=== PATIENT | male | born 1945 | race Caucasian/White ===

== ENCOUNTER → 2020-01-24 10:03 | Outpatient (BNVA) | payer MEDICARE, SELFPAY | PROVIDERS: PCP Internal Medicine Medical Oncology; Referring Provider Internal Medicine Medical Oncology; Visit Provider Internal Medicine | DX: I48.0 Paroxysmal atrial fibrillation (principal); Z51.81 Encounter for therapeutic drug level monitoring; Z79.01 Long term (current) use of anticoagulants | CPT/HCPCS: 85610; 99211 ==

== ENCOUNTER 2020-01-30 10:27 | Outpatient (REF) | payer MEDICARE, SELFPAY ==
[2020-01-30 11:36] LABS: MANUAL DIFF FLAG NO
[2020-01-30 11:41] LABS: Basophils Percent Auto 0.3 % (0-2); Eosinophils Absolute Auto 0.1 X10*3/uL (0.0-0.4); Eosinophils Percent Auto 2.2 % (0-4); Hematocrit 35.5 % (42-52); Hemoglobin 11.7 g/dl (14.0-18.0); Lymphocytes Absolute Auto 1.2 X10*3/uL (1.2-4.9); Lymphocytes Percent Auto 36.9 % (20-40); Mean Corpuscular Hemoglobin 34.4 pg (27.0-33.0); Mean Corpuscular Volume 104.4 fL (80-98); Mean Platelet Volume 10.5 fL (9.4-12.4); Monocytes Absolute Auto 0.3 X10*3/uL (0.1-1.2); Monocytes Percent Auto 10.6 % (2-11); Neutrophils Absolute Auto 1.6 X10*3/uL (2.0-8.3); Red Cell Distribution Width 15.7 % (11.0-16.0); White Blood Count 3.1 X10*3/uL (4.8-10.8)
[2020-01-30 11:45] LABS: Platelet Count 55 X10*3/uL (160-400)
[2020-01-30 11:57] LABS: Alanine Aminotransferase 12 U/L (0-40); Albumin Level 3.7 g/dL (3.5-5.0); Alkaline Phosphatase 54 U/L (39-117); Anion Gap 10 (12-20); Aspartate Amino Transferase 17 U/L (5-37); Bilirubin Total 0.5 mg/dL (0.0-1.0); Blood Urea Nitrogen 8 mg/dL (9-16); Calcium 7.5 mg/dL (8.4-10.2); Carbon Dioxide 27 mmol/L (22-29); Chloride 109 mmol/L (96-108); Estimated Glomerular Filt Rate > 60; Glucose Random 124 mg/dL (60-115); Potassium 3.7 mmol/l (3.3-5.1); Sodium 142 mmol/L (135-145); Total Protein 6.6 g/dL (6.5-8.0)
[2020-01-30 12:20] LABS: Vitamin D 25-OH Total 35.6 ng/mL (>30)
[2020-01-31 16:51] LABS: IgA 414 mg/dL (70-320); IgG 1448 mg/dL (600-1540); IgM 47 mg/dL (50-300)
== END 2020-01-30 10:28 | disposition home or self-care (01) ==
LOC: HO.LAB 10:27
PROVIDERS: PCP Internal Medicine Medical Oncology; Visit Provider Internal Medicine Medical Oncology
DX: C90.00 Multiple myeloma not having achieved remission (principal)
CPT/HCPCS: 36415; 80053; 82306; 82784; 85025; 86334

== ENCOUNTER 2020-02-21 09:53 | Outpatient (REF) | payer MEDICARE, SELFPAY ==
[2020-02-21 11:19] LABS: Basophils Percent Auto 1.4 % (0-2); Eosinophils Absolute Auto 0.1 X10*3/uL (0.0-0.4); Eosinophils Percent Auto 3.2 % (0-4); Hemoglobin 12.1 g/dl (14.0-18.0); Lymphocytes Percent Auto 45.2 % (20-40); MANUAL DIFF FLAG SCAN; Mean Corpuscular HGB Conc 32.7 g/dl (31.0-36.0); Mean Corpuscular Hemoglobin 33.9 pg (27.0-33.0); Mean Corpuscular Volume 103.6 fL (80-98); Mean Platelet Volume 10.5 fL (9.4-12.4); Monocytes Absolute Auto 0.3 X10*3/uL (0.1-1.2); Monocytes Percent Auto 15.2 % (2-11); Neutrophils Absolute Auto 0.8 X10*3/uL (2.0-8.3); Red Blood Count 3.57 X10*6/uL (4.60-5.80); Red Cell Distribution Width 15.4 % (11.0-16.0); SCAN SMEAR FLAG 1
[2020-02-21 11:33] LABS: Alanine Aminotransferase 13 U/L (0-40); Albumin Level 3.6 g/dL (3.5-5.0); Alkaline Phosphatase 57 U/L (39-117); Anion Gap 11 (12-20); Aspartate Amino Transferase 16 U/L (5-37); Bilirubin Total 0.5 mg/dL (0.0-1.0); Blood Urea Nitrogen 9 mg/dL (9-16); Calcium 8.1 mg/dL (8.4-10.2); Carbon Dioxide 25 mmol/L (22-29); Chloride 108 mmol/L (96-108); Estimated Glomerular Filt Rate > 60; Glucose Random 108 mg/dL (60-115); Potassium 4.1 mmol/l (3.3-5.1); Sodium 140 mmol/L (135-145); Total Protein 6.7 g/dL (6.5-8.0)
[2020-02-21 11:48] LABS: Platelet Count 85 X10*3/uL (160-400); White Blood Count 2.2 X10*3/uL (4.8-10.8)
[2020-02-21 12:54] LABS: SLIDE REVIEW VERIFIED
[2020-02-24 19:11] LABS: IgA 412 mg/dL (70-320); IgG 1492 mg/dL (600-1540); IgM 44 mg/dL (50-300)
[2020-02-24 21:21] LABS: Prot Elec - Albumin 3.4 g/dL (3.8-4.8); Prot Elec - Alpha1 0.3 g/dL (0.2-0.3); Prot Elec - Alpha2 0.6 g/dL (0.5-0.9); Prot Elec - Beta 1 0.4 g/dL (0.4-0.6); Prot Elec - Beta 2 0.4 g/dL (0.2-0.5); Prot Elec - Gamma 1.5 g/dL (0.8-1.7); Prot Elec - Total Protein 6.6 g/dL (6.1-8.1)
== END 2020-02-21 09:54 | disposition home or self-care (01) ==
LOC: HO.LAB 09:53
PROVIDERS: PCP Internal Medicine Medical Oncology; Visit Provider Internal Medicine Medical Oncology
DX: C90.00 Multiple myeloma not having achieved remission (principal); D69.6 Thrombocytopenia, unspecified
CPT/HCPCS: 36415; 80053; 82784; 84155; 84165; 85025; 85610; 86334; 99211

== ENCOUNTER → 2020-03-20 10:02 | Outpatient (BNVA) | payer MEDICARE, SELFPAY | PROVIDERS: PCP Internal Medicine Medical Oncology; Visit Provider Internal Medicine | DX: I48.0 Paroxysmal atrial fibrillation (principal); Z51.81 Encounter for therapeutic drug level monitoring; Z79.01 Long term (current) use of anticoagulants | CPT/HCPCS: 85610; 99211 ==

== ENCOUNTER 2020-04-11 10:23 | Outpatient (REF) | payer MEDICARE, SELFPAY ==
[2020-04-11 11:08] LABS: Basophils Percent Auto 0.8 % (0-2); Eosinophils Absolute Auto 0.1 X10*3/uL (0.0-0.4); Eosinophils Percent Auto 2.8 % (0-4); Hematocrit 38.8 % (42-52); Hemoglobin 12.7 g/dl (14.0-18.0); Imm Gran Abs Auto 0.01 X10*3/uL (0.00-0.03); Imm Gran Pct Auto 0.4 % (0.0-0.4); Lymphocytes Absolute Auto 1.3 X10*3/uL (1.2-4.9); Lymphocytes Percent Auto 51.6 % (20-40); MANUAL DIFF FLAG SCAN; Mean Corpuscular HGB Conc 32.7 g/dl (31.0-36.0); Mean Corpuscular Hemoglobin 34.1 pg (27.0-33.0); Mean Corpuscular Volume 104.3 fL (80-98); Mean Platelet Volume 11.2 fL (9.4-12.4); Monocytes Absolute Auto 0.3 X10*3/uL (0.1-1.2); Monocytes Percent Auto 12.8 % (2-11); Neutrophils Absolute Auto 0.8 X10*3/uL (2.0-8.3); Neutrophils Percent Auto 31.6 % (45-73); Red Blood Count 3.72 X10*6/uL (4.60-5.80); Red Cell Distribution Width 15.7 % (11.0-16.0); SCAN SMEAR FLAG 1
[2020-04-11 11:17] LABS: Alanine Aminotransferase 13 U/L (0-40); Albumin Level 3.7 g/dL (3.5-5.0); Alkaline Phosphatase 53 U/L (39-117); Anion Gap 10 (12-20); Aspartate Amino Transferase 15 U/L (5-37); Bilirubin Total 0.5 mg/dL (0.0-1.0); Blood Urea Nitrogen 11 mg/dL (9-16); Carbon Dioxide 29 mmol/L (22-29); Chloride 106 mmol/L (96-108); Estimated Glomerular Filt Rate > 60; Glucose Random 139 mg/dL (60-115); Potassium 3.9 mmol/l (3.3-5.1); Sodium 141 mmol/L (135-145); Total Protein 6.9 g/dL (6.5-8.0)
[2020-04-11 11:20] LABS: Platelet Count 69 X10*3/uL (160-400); White Blood Count 2.5 X10*3/uL (4.8-10.8)
[2020-04-11 11:29] LABS: SLIDE REVIEW VERIFIED
[2020-04-13 14:53] LABS: IgA 442 mg/dL (70-320); IgG 1481 mg/dL (600-1540); IgM 44 mg/dL (50-300)
== END 2020-04-11 10:24 | disposition home or self-care (01) ==
LOC: HO.LAB 10:23
PROVIDERS: PCP Internal Medicine Medical Oncology; Visit Provider Internal Medicine Medical Oncology
DX: C90.00 Multiple myeloma not having achieved remission (principal)
CPT/HCPCS: 36415; 80053; 82784; 85025; 86334

== ENCOUNTER → 2020-04-16 15:08 | Outpatient (BNVA) | payer MEDICARE, SELFPAY | PROVIDERS: PCP Internal Medicine Medical Oncology; Visit Provider Urology | DX: Z13.89 Encounter for screening for other disorder (principal) | CPT/HCPCS: Q3014 ==

== ENCOUNTER 2020-04-17 09:53 | Outpatient (REF) | payer MEDICARE, SELFPAY ==
--- NOTE | 2020-04-17 10:31 | XR_ITS ---
EXAMINATION: XR THORACIC SPINE XR LUMBAR SPINE CLINICAL INFORMATION: Acute back pain. COMPARISON: None TECHNIQUE: Thoracic spine 3 views. Lumbar spine 3 views. FINDINGS: Lumbar spine: There is normal lumbar lordosis. The vertebral heights, alignment and disc heights are normal. There is cement augmentation in old L4 and L2 vertebral fractures. There is mild ventral spondylosis L1-L2 disc level. No lytic process seen. No acute fracture. Thoracic spine: Normal thoracic kyphosis. The vertebral heights, alignment and disc heights are normal. There is mild ventral spondylosis. No visible acute fracture, dislocation or lytic process seen. The paravertebral soft tissues are normal. XR/XR lumbar spine 2-3V IMPRESSION: 1. No acute fracture. Old healed L2 and L4 fracture with cement augmentation. Moderate ventral spondylosis L1-L2 disc level. 2. There is normal thoracic kyphosis. No visible acute fracture or dislocation seen.
--- NOTE | 2020-04-17 10:31 | XR_ITS ---
EXAMINATION: XR THORACIC SPINE XR LUMBAR SPINE CLINICAL INFORMATION: Acute back pain. COMPARISON: None TECHNIQUE: Thoracic spine 3 views. Lumbar spine 3 views. FINDINGS: Lumbar spine: There is normal lumbar lordosis. The vertebral heights, alignment and disc heights are normal. There is cement augmentation in old L4 and L2 vertebral fractures. There is mild ventral spondylosis L1-L2 disc level. No lytic process seen. No acute fracture. Thoracic spine: Normal thoracic kyphosis. The vertebral heights, alignment and disc heights are normal. There is mild ventral spondylosis. No visible acute fracture, dislocation or lytic process seen. The paravertebral soft tissues are normal. XR/XR thoracic spine 3V IMPRESSION: 1. No acute fracture. Old healed L2 and L4 fracture with cement augmentation. Moderate ventral spondylosis L1-L2 disc level. 2. There is normal thoracic kyphosis. No visible acute fracture or dislocation seen.
== END 2020-04-17 09:54 | disposition home or self-care (01) ==
LOC: HO.XRAY 09:53
PROVIDERS: PCP Internal Medicine Medical Oncology; Referring Provider Internal Medicine Medical Oncology; Visit Provider Internal Medicine
DX: C90.00 Multiple myeloma not having achieved remission (principal); D69.6 Thrombocytopenia, unspecified; M54.9 Dorsalgia, unspecified; I48.0 Paroxysmal atrial fibrillation; Z51.81 Encounter for therapeutic drug level monitoring; Z79.01 Long term (current) use of anticoagulants
CPT/HCPCS: 72072; 72100; 85610; 99211

== ENCOUNTER 2020-05-07 10:23 | Outpatient (REF) | payer MEDICARE, SELFPAY ==
[2020-05-07 11:26] LABS: MANUAL DIFF FLAG NO
[2020-05-07 11:32] LABS: Basophils Percent Auto 1.1 % (0-2); Eosinophils Percent Auto 1.1 % (0-4); Hematocrit 39.8 % (42-52); Hemoglobin 13.4 g/dl (14.0-18.0); Imm Gran Abs Auto 0.01 X10*3/uL (0.00-0.03); Imm Gran Pct Auto 0.4 % (0.0-0.4); Lymphocytes Absolute Auto 1.1 X10*3/uL (1.2-4.9); Lymphocytes Percent Auto 41.4 % (20-40); Mean Corpuscular HGB Conc 33.7 g/dl (31.0-36.0); Mean Corpuscular Hemoglobin 34.4 pg (27.0-33.0); Mean Corpuscular Volume 102.3 fL (80-98); Mean Platelet Volume 9.6 fL (9.4-12.4); Monocytes Absolute Auto 0.4 X10*3/uL (0.1-1.2); Monocytes Percent Auto 13.6 % (2-11); Neutrophils Absolute Auto 1.2 X10*3/uL (2.0-8.3); Neutrophils Percent Auto 42.4 % (45-73); Platelet Count 106 X10*3/uL (160-400); Red Blood Count 3.89 X10*6/uL (4.60-5.80); Red Cell Distribution Width 14.9 % (11.0-16.0); White Blood Count 2.7 X10*3/uL (4.8-10.8)
[2020-05-07 12:27] LABS: Alanine Aminotransferase 11 U/L (0-40); Albumin Level 3.9 g/dL (3.5-5.0); Alkaline Phosphatase 58 U/L (39-117); Anion Gap 10 (12-20); Aspartate Amino Transferase 16 U/L (5-37); Bilirubin Total 0.7 mg/dL (0.0-1.0); Blood Urea Nitrogen 13 mg/dL (9-16); Calcium 8.2 mg/dL (8.4-10.2); Carbon Dioxide 27 mmol/L (22-29); Chloride 107 mmol/L (96-108); Estimated Glomerular Filt Rate > 60; Glucose Random 159 mg/dL (60-115); Potassium 4.2 mmol/l (3.3-5.1); Sodium 140 mmol/L (135-145); Total Protein 7.2 g/dL (6.5-8.0)
[2020-05-08 14:57] LABS: IgA 455 mg/dL (70-320); IgG 1578 mg/dL (600-1540); IgM 40 mg/dL (50-300)
[2020-05-08 18:53] LABS: Kappa Light Chain, Free Serum 125.6 mg/L (3.3-19.4); Kappa/Lambda Lt Ch Free Ratio 5.61 (0.26-1.65); Lambda Light Chain, Free Serum 22.4 mg/L (5.7-26.3)
[2020-05-09 10:38] LABS: Prot Elec - Albumin 3.7 g/dL (3.8-4.8); Prot Elec - Alpha1 0.3 g/dL (0.2-0.3); Prot Elec - Alpha2 0.6 g/dL (0.5-0.9); Prot Elec - Beta 1 0.4 g/dL (0.4-0.6); Prot Elec - Beta 2 0.4 g/dL (0.2-0.5); Prot Elec - Gamma 1.6 g/dL (0.8-1.7)
[2020-05-12 16:22] LABS: Kappa, Serum 482 mg/dL (176-443); Kappa/Lambda Ratio, Serum 3.17 (1.29-2.55); Lambda, Serum 152 mg/dL (91-240)
== END 2020-05-07 10:24 | disposition home or self-care (01) ==
LOC: HO.LAB 10:23
PROVIDERS: PCP Internal Medicine Medical Oncology; Visit Provider Internal Medicine Medical Oncology
DX: C90.00 Multiple myeloma not having achieved remission (principal); D69.6 Thrombocytopenia, unspecified
CPT/HCPCS: 36415; 80053; 82784; 83520; 83883; 84155; 84165; 85025; 85610; 86334; 99211

== ENCOUNTER → 2020-05-12 11:25 | Outpatient (BNVA) | payer MEDICARE, SELFPAY | PROVIDERS: PCP Internal Medicine Medical Oncology; Visit Provider Internal Medicine | DX: I48.0 Paroxysmal atrial fibrillation (principal); Z51.81 Encounter for therapeutic drug level monitoring; Z79.01 Long term (current) use of anticoagulants | CPT/HCPCS: 85610; 99211 ==

== ENCOUNTER → 2020-05-22 10:31 | Outpatient (BNVA) | payer MEDICARE, SELFPAY | PROVIDERS: PCP Internal Medicine Medical Oncology; Visit Provider Internal Medicine | DX: I48.0 Paroxysmal atrial fibrillation (principal); Z51.81 Encounter for therapeutic drug level monitoring; Z79.01 Long term (current) use of anticoagulants | CPT/HCPCS: 85610; 99211 ==

== ENCOUNTER 2020-06-05 10:22 | Outpatient (REF) | payer MEDICARE, SELFPAY ==
[2020-06-05 11:40] LABS: MANUAL DIFF FLAG NO
[2020-06-05 11:52] LABS: Basophils Percent Auto 1.1 % (0-2); Eosinophils Absolute Auto 0.1 X10*3/uL (0.0-0.4); Eosinophils Percent Auto 2.5 % (0-4); Hematocrit 41.3 % (42-52); Hemoglobin 13.7 g/dl (14.0-18.0); Imm Gran Abs Auto 0.01 X10*3/uL (0.00-0.03); Imm Gran Pct Auto 0.4 % (0.0-0.4); Lymphocytes Absolute Auto 1.3 X10*3/uL (1.2-4.9); Lymphocytes Percent Auto 45.4 % (20-40); Mean Corpuscular HGB Conc 33.2 g/dl (31.0-36.0); Mean Corpuscular Hemoglobin 34.5 pg (27.0-33.0); Mean Platelet Volume 11.9 fL (9.4-12.4); Monocytes Absolute Auto 0.4 X10*3/uL (0.1-1.2); Monocytes Percent Auto 12.5 % (2-11); Neutrophils Absolute Auto 1.1 X10*3/uL (2.0-8.3); Neutrophils Percent Auto 38.1 % (45-73); Platelet Count 110 X10*3/uL (160-400); Red Blood Count 3.97 X10*6/uL (4.60-5.80); Red Cell Distribution Width 14.7 % (11.0-16.0); White Blood Count 2.8 X10*3/uL (4.8-10.8)
[2020-06-05 12:09] LABS: Estimated Average Glucose 105 mg/dL; Hemoglobin A1c % 5.3 %
[2020-06-05 12:59] LABS: Alanine Aminotransferase 13 U/L (0-40); Albumin Level 3.7 g/dL (3.5-5.0); Alkaline Phosphatase 58 U/L (39-117); Anion Gap 13 (12-20); Aspartate Amino Transferase 15 U/L (5-37); Bilirubin Total 0.9 mg/dL (0.0-1.0); Blood Urea Nitrogen 11 mg/dL (9-16); Calcium 8.2 mg/dL (8.4-10.2); Carbon Dioxide 24 mmol/L (22-29); Chloride 108 mmol/L (96-108); Estimated Glomerular Filt Rate > 60; Glucose Fasting 125 mg/dL (60-99); Potassium 4.1 mmol/L (3.3-5.1); Sodium 141 mmol/L (135-145)
[2020-06-09 15:17] LABS: IgA 461 mg/dL (70-320); IgG 1592 mg/dL (600-1540); IgM 47 mg/dL (50-300)
== END 2020-06-05 10:23 | disposition home or self-care (01) ==
LOC: HO.LAB 10:22
PROVIDERS: PCP Internal Medicine Medical Oncology; Visit Provider Internal Medicine Medical Oncology
DX: I48.0 Paroxysmal atrial fibrillation (principal); C90.00 Multiple myeloma not having achieved remission; I10 Essential (primary) hypertension; E11.9 Type 2 diabetes mellitus without complications; Z51.81 Encounter for therapeutic drug level monitoring; Z79.01 Long term (current) use of anticoagulants
CPT/HCPCS: 36415; 80053; 82784; 83036; 85025; 85610; 86334; 99211

== ENCOUNTER → 2020-06-19 10:57 | Outpatient (BNVA) | payer MEDICARE, SELFPAY | PROVIDERS: PCP Internal Medicine Medical Oncology; Visit Provider Internal Medicine | DX: I48.0 Paroxysmal atrial fibrillation (principal); Z51.81 Encounter for therapeutic drug level monitoring; Z79.01 Long term (current) use of anticoagulants | CPT/HCPCS: 85610; 99211 ==

== ENCOUNTER → 2020-06-30 10:39 | Outpatient (BNVA) | payer MEDICARE, SELFPAY | PROVIDERS: PCP Internal Medicine Medical Oncology; Visit Provider Internal Medicine | DX: I48.0 Paroxysmal atrial fibrillation (principal); Z51.81 Encounter for therapeutic drug level monitoring; Z79.01 Long term (current) use of anticoagulants | CPT/HCPCS: 85610; 99211 ==

== ENCOUNTER 2020-07-07 10:13 | Outpatient (REF) | payer MEDICARE, SELFPAY ==
[2020-07-07 11:01] LABS: MANUAL DIFF FLAG NO
[2020-07-07 11:04] LABS: Eosinophils Absolute Auto 0.1 X10*3/uL (0.0-0.4); Eosinophils Percent Auto 2.1 % (0-4); Hematocrit 39.2 % (42-52); Hemoglobin 12.7 g/dl (14.0-18.0); Imm Gran Abs Auto 0.01 X10*3/uL (0.00-0.03); Imm Gran Pct Auto 0.3 % (0.0-0.4); Lymphocytes Absolute Auto 1.2 X10*3/uL (1.2-4.9); Lymphocytes Percent Auto 41.7 % (20-40); Mean Corpuscular HGB Conc 32.4 g/dl (31.0-36.0); Mean Corpuscular Hemoglobin 33.8 pg (27.0-33.0); Mean Corpuscular Volume 104.3 fL (80-98); Monocytes Absolute Auto 0.3 X10*3/uL (0.1-1.2); Monocytes Percent Auto 11.1 % (2-11); Neutrophils Absolute Auto 1.3 X10*3/uL (2.0-8.3); Neutrophils Percent Auto 43.8 % (45-73); Platelet Count 123 X10*3/uL (160-400); Red Blood Count 3.76 X10*6/uL (4.60-5.80); Red Cell Distribution Width 14.5 % (11.0-16.0); White Blood Count 2.9 X10*3/uL (4.8-10.8)
[2020-07-07 12:24] LABS: Alanine Aminotransferase 14 U/L (0-40); Albumin Level 3.8 g/dL (3.5-5.0); Alkaline Phosphatase 89 U/L (39-117); Anion Gap 12 (12-20); Aspartate Amino Transferase 17 U/L (5-37); Bilirubin Total 0.5 mg/dL (0.0-1.0); Blood Urea Nitrogen 11 mg/dL (9-16); Carbon Dioxide 24 mmol/L (22-29); Chloride 109 mmol/L (96-108); Estimated Glomerular Filt Rate > 60; Glucose Random 140 mg/dL (60-115); Potassium 4.1 mmol/L (3.3-5.1); Sodium 141 mmol/L (135-145); Total Protein 7.1 g/dL (6.5-8.0)
[2020-07-08 15:02] LABS: IgA 431 mg/dL (70-320); IgG 1532 mg/dL (600-1540); IgM 44 mg/dL (50-300); Prot Elec - Albumin 3.4 g/dL (3.8-4.8); Prot Elec - Alpha1 0.3 g/dL (0.2-0.3); Prot Elec - Alpha2 0.7 g/dL (0.5-0.9); Prot Elec - Beta 1 0.4 g/dL (0.4-0.6); Prot Elec - Beta 2 0.4 g/dL (0.2-0.5); Prot Elec - Gamma 1.5 g/dL (0.8-1.7); Prot Elec - Total Protein 6.6 g/dL (6.1-8.1)
[2020-07-09 15:27] LABS: Kappa, Serum 486 mg/dL (176-443); Kappa/Lambda Ratio, Serum 2.88 (1.29-2.55); Lambda, Serum 169 mg/dL (91-240)
== END 2020-07-07 10:14 | disposition home or self-care (01) ==
LOC: HO.LAB 10:13
PROVIDERS: PCP Internal Medicine Medical Oncology; Visit Provider Internal Medicine Medical Oncology
DX: C90.00 Multiple myeloma not having achieved remission (principal)
CPT/HCPCS: 36415; 80053; 82784; 83883; 84155; 84165; 85025; 86334

== ENCOUNTER → 2020-07-21 10:30 | Outpatient (BNVA) | payer MEDICARE, SELFPAY | PROVIDERS: PCP Internal Medicine Medical Oncology; Visit Provider Internal Medicine | DX: I48.0 Paroxysmal atrial fibrillation (principal); Z79.01 Long term (current) use of anticoagulants; Z51.81 Encounter for therapeutic drug level monitoring | CPT/HCPCS: 85610; 99211 ==

== ENCOUNTER 2020-08-07 10:13 | Outpatient (REF) | payer MEDICARE, SELFPAY ==
[2020-08-07 11:13] LABS: MANUAL DIFF FLAG NO
[2020-08-07 11:38] LABS: Basophils Percent Auto 1.1 % (0-2); Eosinophils Absolute Auto 0.1 X10*3/uL (0.0-0.4); Eosinophils Percent Auto 2.5 % (0-4); Hemoglobin 12.4 g/dl (14.0-18.0); Imm Gran Abs Auto 0.02 X10*3/uL (0.00-0.03); Imm Gran Pct Auto 0.7 % (0.0-0.4); Lymphocytes Absolute Auto 1.3 X10*3/uL (1.2-4.9); Lymphocytes Percent Auto 46.3 % (20-40); Mean Corpuscular HGB Conc 32.6 g/dl (31.0-36.0); Mean Corpuscular Hemoglobin 33.3 pg (27.0-33.0); Mean Corpuscular Volume 102.2 fL (80-98); Mean Platelet Volume 11.2 fL (9.4-12.4); Monocytes Absolute Auto 0.4 X10*3/uL (0.1-1.2); Monocytes Percent Auto 13.9 % (2-11); Neutrophils Percent Auto 35.5 % (45-73); Red Blood Count 3.72 X10*6/uL (4.60-5.80); Red Cell Distribution Width 15.3 % (11.0-16.0); White Blood Count 2.8 X10*3/uL (4.8-10.8)
[2020-08-07 11:41] LABS: Alanine Aminotransferase 16 U/L (0-40); Albumin Level 3.6 g/dL (3.5-5.0); Alkaline Phosphatase 60 U/L (39-117); Anion Gap 11 (12-20); Aspartate Amino Transferase 19 U/L (5-37); Bilirubin Total 0.6 mg/dL (0.0-1.0); Blood Urea Nitrogen 11 mg/dL (9-16); Calcium 7.9 mg/dL (8.4-10.2); Carbon Dioxide 26 mmol/L (22-29); Chloride 108 mmol/L (96-108); Estimated Glomerular Filt Rate > 60; Glucose Random 150 mg/dL (60-115); Sodium 141 mmol/L (135-145); Total Protein 6.7 g/dL (6.5-8.0)
[2020-08-07 11:48] LABS: Platelet Count 85 X10*3/uL (160-400)
== END 2020-08-07 10:14 | disposition home or self-care (01) ==
LOC: HO.LAB 10:13
PROVIDERS: PCP Internal Medicine Medical Oncology; Visit Provider Internal Medicine Medical Oncology
DX: C90.00 Multiple myeloma not having achieved remission (principal); D69.6 Thrombocytopenia, unspecified
CPT/HCPCS: 36415; 80053; 85025

== ENCOUNTER → 2020-08-18 10:34 | Outpatient (BNVA) | payer MEDICARE, SELFPAY | PROVIDERS: PCP Internal Medicine Medical Oncology; Visit Provider Internal Medicine | DX: I48.0 Paroxysmal atrial fibrillation (principal); Z51.81 Encounter for therapeutic drug level monitoring; Z79.01 Long term (current) use of anticoagulants | CPT/HCPCS: 85610; 99211 ==

== ENCOUNTER 2020-09-04 10:16 | Outpatient (REF) | payer MEDICARE, SELFPAY ==
[2020-09-04 11:32] LABS: MANUAL DIFF FLAG NO
[2020-09-04 11:49] LABS: Basophils Percent Auto 0.3 % (0-2); Eosinophils Absolute Auto 0.1 X10*3/uL (0.0-0.4); Eosinophils Percent Auto 2.6 % (0-4); Hematocrit 38.9 % (42-52); Hemoglobin 12.6 g/dl (14.0-18.0); Imm Gran Abs Auto 0.01 X10*3/uL (0.00-0.03); Imm Gran Pct Auto 0.3 % (0.0-0.4); Lymphocytes Absolute Auto 1.2 X10*3/uL (1.2-4.9); Lymphocytes Percent Auto 31.6 % (20-40); Mean Corpuscular HGB Conc 32.4 g/dl (31.0-36.0); Mean Corpuscular Hemoglobin 33.1 pg (27.0-33.0); Mean Corpuscular Volume 102.1 fL (80-98); Mean Platelet Volume 10.4 fL (9.4-12.4); Monocytes Absolute Auto 0.4 X10*3/uL (0.1-1.2); Monocytes Percent Auto 9.4 % (2-11); Neutrophils Absolute Auto 2.2 X10*3/uL (2.0-8.3); Neutrophils Percent Auto 55.8 % (45-73); Platelet Count 109 X10*3/uL (160-400); Red Blood Count 3.81 X10*6/uL (4.60-5.80); Red Cell Distribution Width 15.3 % (11.0-16.0); White Blood Count 3.9 X10*3/uL (4.8-10.8)
[2020-09-04 12:19] LABS: Alanine Aminotransferase 13 U/L (0-40); Albumin Level 3.7 g/dL (3.5-5.0); Alkaline Phosphatase 56 U/L (39-117); Anion Gap 10 (12-20); Aspartate Amino Transferase 15 U/L (5-37); Bilirubin Total 0.4 mg/dL (0.0-1.0); Blood Urea Nitrogen 10 mg/dL (9-16); Calcium 8.4 mg/dL (8.4-10.2); Carbon Dioxide 26 mmol/L (22-29); Chloride 110 mmol/L (96-108); Estimated Glomerular Filt Rate > 60; Glucose Random 116 mg/dL (60-115); Potassium 4.5 mmol/L (3.3-5.1); Sodium 141 mmol/L (135-145); Total Protein 6.7 g/dL (6.5-8.0)
[2020-09-08 23:11] LABS: Prot Elec - Albumin 3.6 g/dL (3.8-4.8); Prot Elec - Alpha1 0.3 g/dL (0.2-0.3); Prot Elec - Alpha2 0.6 g/dL (0.5-0.9); Prot Elec - Beta 1 0.4 g/dL (0.4-0.6); Prot Elec - Beta 2 0.4 g/dL (0.2-0.5); Prot Elec - Gamma 1.5 g/dL (0.8-1.7); Prot Elec - Total Protein 6.7 g/dL (6.1-8.1)
[2020-09-17 17:36] LABS: Kappa, Serum 461 mg/dL (176-443); Kappa/Lambda Ratio, Serum 2.78 (1.29-2.55); Lambda, Serum 166 mg/dL (91-240)
== END 2020-09-04 10:17 | disposition home or self-care (01) ==
LOC: HO.LAB 10:16
PROVIDERS: PCP Internal Medicine Medical Oncology; Visit Provider Internal Medicine Medical Oncology
DX: C90.00 Multiple myeloma not having achieved remission (principal); D69.6 Thrombocytopenia, unspecified
CPT/HCPCS: 36415; 80053; 83883; 84155; 84165; 85025

== ENCOUNTER 2020-09-15 10:31 | Outpatient (REF) | payer MEDICARE, SELFPAY ==
--- NOTE | ~2020-09-15 | XR_ITS ---
EXAMINATION: THORACIC SPINE, LUMBAR SPINE CLINICAL INFORMATION: Multiple myeloma not having achieved remission, acute back pain. COMPARISON: 04/17/2020 TECHNIQUE: 4 views thoracic spine, 3 views lumbar spine. FINDINGS: Thoracic Spine: Again seen is a mild scoliosis convex to the right. 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 There is mild anterior wedging of a few thoracic vertebral bodies associated with kyphosis. No gross bony destructive lesions are seen. The paraspinal soft tissues are unremarkable. Lumbar Spine: Again seen are kyphoplasty changes with cement in the L2 and L4. [id number] degenerative changes are noted throughout the lumbar spine. No new compression fractures are seen. No bony destructive lesions seen. XR/XR lumbar spine 2-3V IMPRESSION: 1. Degenerative changes present in the thoracic spine with kyphosis and scoliosis with no new destructive lesions or fractures. 2. Stable kyphoplasty changes at L2 and L4 with no new lesions.
--- NOTE | ~2020-09-15 | XR_ITS ---
EXAMINATION: THORACIC SPINE, LUMBAR SPINE CLINICAL INFORMATION: Multiple myeloma not having achieved remission, acute back pain. COMPARISON: 04/17/2020 TECHNIQUE: 4 views thoracic spine, 3 views lumbar spine. FINDINGS: Thoracic Spine: Again seen is a mild scoliosis convex to the right. 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 There is mild anterior wedging of a few thoracic vertebral bodies associated with kyphosis. No gross bony destructive lesions are seen. The paraspinal soft tissues are unremarkable. Lumbar Spine: Again seen are kyphoplasty changes with cement in the L2 and L4. [id number] degenerative changes are noted throughout the lumbar spine. No new compression fractures are seen. No bony destructive lesions seen. XR/XR thoracic spine 3V IMPRESSION: 1. Degenerative changes present in the thoracic spine with kyphosis and scoliosis with no new destructive lesions or fractures. 2. Stable kyphoplasty changes at L2 and L4 with no new lesions.
== END 2020-09-15 10:32 | disposition home or self-care (01) ==
LOC: HO.XRAY 10:31
PROVIDERS: Absent Provider Internal Medicine Medical Oncology; PCP Internal Medicine Medical Oncology; Visit Provider Internal Medicine
DX: C90.00 Multiple myeloma not having achieved remission (principal); M54.9 Dorsalgia, unspecified; I48.0 Paroxysmal atrial fibrillation; Z51.81 Encounter for therapeutic drug level monitoring; Z79.01 Long term (current) use of anticoagulants
CPT/HCPCS: 72072; 72100; 85610; 99211

== ENCOUNTER 2020-10-01 13:52 | Outpatient (REF) | payer MEDICARE, SELFPAY ==
--- NOTE | ~2020-10-01 | MM_ITS ---
EXAMINATION: BONE DENSITOMETRY CLINICAL INDICATION: Encounter for screening for osteoporosis. Acute back pain, unspecified location. Prior vertebroplasty/vertebral augmentation L2 and L4. COMPARISON: None (current study represents initial baseline exam). TECHNIQUE: Using a [employer] SACV DXA System (software version: 13.1) manufactured by [employer], dual-energy x-ray absorptiometry was performed of the lumbar spine and left hip. The images are of good technical quality. Summary results are attached. FINDINGS: AP SPINE L1-L3 (excluding L2): The data of L1-L4 has been changed to exclude the L2 and L4 vertebral bodies, because vertebral augmentation at these levels may cause overestimation of lumbar spine density. There are degenerative changes in the lumbar spine which may cause overestimation of the lumbar bone mineral density. BMD 1.222 g/cm2, Z-score 0.4, T-score 0.2, normal. LEFT FEMUR, NECK: BMD 0.630 g/cm2, Z-score -2.2, T-score -3.4, osteoporosis. LEFT FEMUR, TOTAL: BMD 0.760 g/cm2, Z-score -1.6, T-score -2.4, osteopenia. IDENTIFIED RISK FACTORS: Height loss. HISTORY OF FRACTURE: Spine. MEDICATIONS: Calcium or multivitamin. MM/XR DEXA axial skeleton IMPRESSION: 1. DIAGNOSIS: Severe osteoporosis based on the lowest T-score value of -3.4 in the femoral neck and prior history vertebral compression fractures applying World Health Organization criteria. 2. 10-YEAR FRACTURE RISK PREDICTION, FRAX: Major osteoporotic fracture (clinical spine, forearm, hip or shoulder) 14.3%. Hip fracture 7.2%. 3. Treatment Recommendations: NOF guidelines recommend consideration for treatment in postmenopausal women and men age 50 and older presenting with the following: -A hip or vertebral (clinical or morphometric) fracture. -T-score less than or equal to -2.5 at the femoral neck or spine after appropriate evaluation to exclude secondary causes. -Low bone mass at the hip or spine and a 10-year fracture probability by FRAX of greater than or equal to 3% for hip fracture or greater than or equal to 20% for major osteoporotic fracture based on the [place] adapted WHO algorithm. 4. Other Recommendations: All treatment decisions require clinical judgment and consideration of individual patient factors, including patient preferences, comorbidities, previous drug use, risk factors not captured in the FRAX model (e.g. frailty, falls, vitamin D deficiency, increased bone turnover, interval significant decline in bone density) and possible under or overestimation of fracture risk by FRAX. Additional medical evaluation for secondary cause of low bone mineral density may be appropriate. FUTURE SCAN RECOMMENDATION: People with diagnosed cases of osteoporosis or at high risk for fracture should have regular bone mineral density tests. For patients eligible for Medicare, routine testing is allowed once every 2 years. The testing frequency can be increased to one year for patients who have rapidly progressing disease, those who are receiving or discontinuing medical therapy to restore bone mass, or have additional risk factors.
[2020-10-01 15:11] LABS: MANUAL DIFF FLAG NO
[2020-10-01 15:13] LABS: Basophils Percent Auto 0.9 % (0-2); Eosinophils Absolute Auto 0.1 X10*3/uL (0.0-0.4); Eosinophils Percent Auto 3.5 % (0-4); Hematocrit 39.7 % (42-52); Hemoglobin 13.2 g/dl (14.0-18.0); Imm Gran Abs Auto 0.02 X10*3/uL (0.00-0.03); Imm Gran Pct Auto 0.6 % (0.0-0.4); Lymphocytes Absolute Auto 1.4 X10*3/uL (1.2-4.9); Lymphocytes Percent Auto 39.4 % (20-40); Mean Corpuscular HGB Conc 33.2 g/dl (31.0-36.0); Mean Corpuscular Hemoglobin 33.6 pg (27.0-33.0); Mean Platelet Volume 10.7 fL (9.4-12.4); Monocytes Absolute Auto 0.4 X10*3/uL (0.1-1.2); Monocytes Percent Auto 11.3 % (2-11); Neutrophils Absolute Auto 1.5 X10*3/uL (2.0-8.3); Neutrophils Percent Auto 44.3 % (45-73); Platelet Count 103 X10*3/uL (160-400); Red Blood Count 3.93 X10*6/uL (4.60-5.80); Red Cell Distribution Width 15.2 % (11.0-16.0); White Blood Count 3.5 X10*3/uL (4.8-10.8)
[2020-10-01 15:25] LABS: Estimated Average Glucose 114 mg/dL; Hemoglobin A1c % 5.6 %
[2020-10-01 15:32] LABS: Creatinine Urine 165.95 mg/dL; Microalbum/Creatinine Ratio Ur 12.6 ug/mg cr
[2020-10-01 15:39] LABS: Alanine Aminotransferase 20 U/L (0-40); Albumin Level 3.7 g/dL (3.5-5.0); Alkaline Phosphatase 68 U/L (39-117); Anion Gap 11 (12-20); Aspartate Amino Transferase 30 U/L (5-37); Bilirubin Total 0.5 mg/dL (0.0-1.0); Blood Urea Nitrogen 10 mg/dL (9-16); Calcium 8.2 mg/dL (8.4-10.2); Carbon Dioxide 25 mmol/L (22-29); Chloride 108 mmol/L (96-108); Estimated Glomerular Filt Rate > 60; Glucose Random 102 mg/dL (60-115); Potassium 4.4 mmol/L (3.3-5.1); Sodium 140 mmol/L (135-145); Total Protein 6.9 g/dL (6.5-8.0)
[2020-10-02 21:57] LABS: Prot Elec - Albumin 3.5 g/dL (3.8-4.8); Prot Elec - Alpha1 0.3 g/dL (0.2-0.3); Prot Elec - Alpha2 0.7 g/dL (0.5-0.9); Prot Elec - Beta 1 0.4 g/dL (0.4-0.6); Prot Elec - Beta 2 0.4 g/dL (0.2-0.5); Prot Elec - Gamma 1.4 g/dL (0.8-1.7); Prot Elec - Total Protein 6.7 g/dL (6.1-8.1)
[2020-10-15 15:46] LABS: Kappa, Serum 466 mg/dL (176-443); Kappa/Lambda Ratio, Serum 3.01 (1.29-2.55); Lambda, Serum 155 mg/dL (91-240)
== END 2020-10-01 13:53 | disposition home or self-care (01) ==
LOC: HO.MAMMO 13:52
PROVIDERS: PCP Internal Medicine Medical Oncology; Visit Provider Internal Medicine Medical Oncology
DX: Z13.820 Encounter for screening for osteoporosis (principal); M81.0 Age-related osteoporosis without current pathological fracture; C90.00 Multiple myeloma not having achieved remission; M54.9 Dorsalgia, unspecified; I10 Essential (primary) hypertension; E11.9 Type 2 diabetes mellitus without complications; Z79.899 Other long term (current) drug therapy
CPT/HCPCS: 36415; 77080; 80053; 82043; 83036; 83883; 84155; 84165; 85025

== ENCOUNTER → 2020-10-13 10:31 | Outpatient (BNVA) | payer MEDICARE, SELFPAY | PROVIDERS: PCP Internal Medicine Medical Oncology; Visit Provider Internal Medicine | DX: I48.0 Paroxysmal atrial fibrillation (principal); Z51.81 Encounter for therapeutic drug level monitoring; Z79.01 Long term (current) use of anticoagulants | CPT/HCPCS: 85610; 99211 ==

== ENCOUNTER → 2020-10-20 10:46 | Outpatient (BNVA) | payer MEDICARE, SELFPAY | PROVIDERS: PCP Internal Medicine Medical Oncology; Visit Provider Internal Medicine | DX: I48.0 Paroxysmal atrial fibrillation (principal); Z51.81 Encounter for therapeutic drug level monitoring; Z79.01 Long term (current) use of anticoagulants | CPT/HCPCS: 85610; 99211 ==

== ENCOUNTER 2020-10-28 11:38 | Outpatient (REF) | payer MEDICARE, SELFPAY ==
[2020-10-28 12:08] LABS: MANUAL DIFF FLAG NO
[2020-10-28 12:13] LABS: Eosinophils Absolute Auto 0.1 X10*3/uL (0.0-0.4); Eosinophils Percent Auto 3.2 % (0-4); Hematocrit 38.9 % (42-52); Hemoglobin 12.7 g/dl (14.0-18.0); Imm Gran Abs Auto 0.02 X10*3/uL (0.00-0.03); Imm Gran Pct Auto 0.6 % (0.0-0.4); Lymphocytes Absolute Auto 1.2 X10*3/uL (1.2-4.9); Lymphocytes Percent Auto 35.7 % (20-40); Mean Corpuscular HGB Conc 32.6 g/dl (31.0-36.0); Mean Corpuscular Hemoglobin 33.1 pg (27.0-33.0); Mean Corpuscular Volume 101.3 fL (80-98); Mean Platelet Volume 10.3 fL (9.4-12.4); Monocytes Absolute Auto 0.3 X10*3/uL (0.1-1.2); Monocytes Percent Auto 9.6 % (2-11); Neutrophils Absolute Auto 1.8 X10*3/uL (2.0-8.3); Neutrophils Percent Auto 50.9 % (45-73); Platelet Count 106 X10*3/uL (160-400); Red Blood Count 3.84 X10*6/uL (4.60-5.80); Red Cell Distribution Width 15.6 % (11.0-16.0); White Blood Count 3.5 X10*3/uL (4.8-10.8)
[2020-10-28 12:41] LABS: Alanine Aminotransferase 11 U/L (0-40); Albumin Level 3.7 g/dL (3.5-5.0); Alkaline Phosphatase 58 U/L (39-117); Anion Gap 10 (12-20); Aspartate Amino Transferase 17 U/L (5-37); Bilirubin Total 0.6 mg/dL (0.0-1.0); Blood Urea Nitrogen 9 mg/dL (9-16); Carbon Dioxide 26 mmol/L (22-29); Chloride 108 mmol/L (96-108); Estimated Glomerular Filt Rate > 60; Glucose Random 157 mg/dL (60-115); Sodium 140 mmol/L (135-145); Total Protein 6.7 g/dL (6.5-8.0)
[2020-10-29 17:17] LABS: Kappa/Lambda Lt Ch Free Ratio 49.92 (0.26-1.65); Lambda Light Chain, Free Serum 22.7 mg/L (5.7-26.3)
[2020-11-02 08:02] LABS: IgA 358 mg/dL (70-320); IgG 1460 mg/dL (600-1540); IgM 41 mg/dL (50-300)
[2020-11-02 20:52] LABS: Prot Elec - Albumin 3.7 g/dL (3.8-4.8); Prot Elec - Alpha1 0.3 g/dL (0.2-0.3); Prot Elec - Alpha2 0.7 g/dL (0.5-0.9); Prot Elec - Beta 1 0.5 g/dL (0.4-0.6); Prot Elec - Beta 2 0.3 g/dL (0.2-0.5); Prot Elec - Gamma 1.3 g/dL (0.8-1.7); Prot Elec - Total Protein 6.8 g/dL (6.1-8.1)
[2020-11-03 13:56] LABS: Kappa, Serum 441 mg/dL (176-443); Kappa/Lambda Ratio, Serum 3.27 (1.29-2.55); Lambda, Serum 135 mg/dL (91-240)
== END 2020-10-28 11:39 | disposition home or self-care (01) ==
LOC: HO.LAB 11:38
PROVIDERS: PCP Internal Medicine Medical Oncology; Visit Provider Internal Medicine Medical Oncology
DX: C90.00 Multiple myeloma not having achieved remission (principal); D69.6 Thrombocytopenia, unspecified; D70.2 Other drug-induced agranulocytosis
CPT/HCPCS: 36415; 80053; 82784; 83520; 83883; 84165; 85025; 86334

== ENCOUNTER 2020-11-02 18:11 | Observation (INO) | payer MEDICARE, SELFPAY ==
--- NOTE | ~2020-11-02 | XR_ITS ---
EXAMINATION: XR SHOULDER, RIGHT CLINICAL INFORMATION: Fall and trauma COMPARISON: None TECHNIQUE: 3 plain film views of the right shoulder. FINDINGS: Humeral head is well-seated in the glenoid fossa. I do not appreciate any superimposed acute fracture or dislocation. Mild degenerative changes in the acromioclavicular joint. Visualized right ribs unremarkable XR/XR shoulder RT min 2V IMPRESSION: Mild degenerative changes but no acute bony abnormality.
--- NOTE | ~2020-11-02 | CT_ITS ---
EXAMINATION: CT HEAD WITHOUT CONTRAST CLINICAL INFORMATION: Syncope and over anticoagulation. History of multiple myeloma COMPARISON: 05/07/2018 TECHNIQUE: Contiguous axial imaging was performed from the skull base to vertex without intravenous administration of contrast. This CT examination was performed using dose optimization techniques as appropriate, variously including the following: *Automated exposure control *Adjustment of mA and/or kV according to patient size (this includes techniques or standardized protocols for targeted exams where dose is matched to indication/reason for exam; i.e. extremities or head) *Use of iterative reconstruction technique DLP: 887 mGy-cm FINDINGS: No evidence of acute intracranial hemorrhage or extra-axial fluid collection. No evidence of mass lesion, mass effect or midline shift. No acute territorial infarction. The ventricles are symmetric in configuration and basal cisterns are patent. Periventricular white matter hypodensities, a nonspecific finding but most commonly on the basis of chronic small vessel ischemic disease, similar to the prior study. Proportional ventricular prominence to the sulcal size in keeping with global volume loss. The calvarium is intact. Multiple lytic lesions throughout the calvarium, similar to the prior study in keeping with the patient's diagnosis of multiple myeloma. Limited views of the paranasal sinuses are unremarkable. Mastoid air cells are well aerated and middle ear cavities are clear. Bilateral lens extractions. CT/CT head/brain wo con IMPRESSION: 1. No evidence of acute intracranial abnormality. 2. 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 3. Multiple lucent lesions throughout the calvarium as seen on the prior study consistent with known multiple myeloma.
--- NOTE | 2020-11-02 18:37 | ED_ITS ---
HPI - Fall General Chief Complaint: Fall Stated Complaint: FALL +LOC Time Seen by Provider: 11/02/20 18:36 Source: patient Mode of arrival: EMS Limitations: no limitations History of Present Illness HPI Narrative: Patient remembers falling down backwards down the three steps landing on the grass. According to patient passed out after getting him into a chair, he was also incontinent stool, and then vomited. Patient complaining of shoulder pain. This same thing happened to him a few years ago after falling. MD complaint: fall Onset (ago): minute(s) Fall from: down stairs (#) Loss of consciousness: yes Length of LOC: second(s) Prolonged down time: no Context: tripped/slipped Location of injury - extremities: right: shoulder Severity: mild Related Data Home Medications Medication Instructions Recorded Confirmed bromfenac 0.09 % eye drops drp OPHTHALMIC (EYE) 04/16/20 06/19/20 donepezil 5 mg tablet 5 mg PO DAILY 04/16/20 06/19/20 metformin 500 mg tablet 500 mg PO BID 04/16/20 06/19/20 omeprazole 20 mg capsule,delayed 20 mg PO DAILY 04/16/20 06/19/20 release primidone 50 mg tablet 100 mg PO DAILY 04/16/20 06/19/20 tamsulosin 0.4 mg capsule 0.4 mg PO DAILY 04/16/20 06/19/20 zoledronic acid 4 mg/5 mL mg IV 04/16/20 06/19/20 intravenous solution acetaminophen 500 mg tablet 500 mg PO Q6H PRN 05/07/20 06/19/20 diltiazem HCl 180 mg capsule,24 180 mg PO QAM 05/07/20 06/19/20 hr,extended release latanoprost 0.005 % eye drops 1 drp OPHTHALMIC (EYE) BEDTIME 05/07/20 06/19/20 lenalidomide 25 mg capsule mg PO 05/07/20 06/19/20 Previous Rx's Medication Instructions Recorded warfarin 5 mg tablet 5 mg PO DAILY #90 tab 01/24/20 Allergies Allergy/AdvReac Type Severity Reaction Status Date / Time No Known Allergies Allergy Verified 10/13/20 10:41 [No Known Allergies*] Review of Systems Neurologic: Denies Sensory deficit (Neuro) [facility] Past Medical History Medical History (Updated 11/02/20 @ 19:37 by Anjum Moody MD) Afib BPH (benign prostatic hyperplasia) Diabetes Diabetes mellitus DVT (deep venous thrombosis) Glaucoma HTN (hypertension) Urinary retention due to benign prostatic hyperplasia Surgical History (Updated 11/02/20 @ 18:47 by Alba Garcia RN) H/O cataract removal with insertion of prosthetic lens Social History Social History Alcohol intake: current Alcohol intake frequency: holidays/special occasions only Patient Tobacco Use Status: Former Tobacco user Use of substances other than those prescribed or required for medical reasons: No Advance Directives: No Advance Directives Information Provided: No Physical Exam Vital Signs: Vital Signs: Last Vital Signs Temp 98.1 F 11/02/20 18:41 Pulse 58 11/02/20 18:41 Resp 18 11/02/20 18:41 BP 142/61 H 11/02/20 18:41 Pulse Ox 98 11/02/20 18:41 Body Mass Index 30.5 Const: Other: elderly male Nutritional Appearance: average body habitus Orientation/consciousness: oriented to person and patient oriented x3 Limitations: no limitations HENMT: Head: Yes normal to inspection Ears: external ears normal General nose exam: Normal external nose present Mouth: Normal oral and palatal mucosa present and oropharynx normal Throat: Yes posterior oropharynx normal Eyes: General: appearance normal, both eyes and all related structures Neck: Other: supple Neck: Yes normal visual inspection Chest: Chest palpation & inspection: normal inspection of the chest Resp: Auscultation: clear to auscultation bilaterally Cardio: Jugular venous distension: no JVD Rate: regular rate Rhythm: regular rhythm Heart sounds: S1 normal heart sound present and S2 normal heart sound present GI: Inspection: Yes normal to inspection Palpation (GI): Soft to palpation, nontender and No hepatosplenomegaly present Auscultation: normal bowel sounds : General: Yes no CVA tenderness Back/Spine/Pelvis: Back: no CVA tenderness Skin: General skin exam: no rashes or lesions noted Neuro: General: oriented to person and patient oriented x3 Cranial nerves: Yes CN's II-XII intact bilaterally Motor exam (neuro): 5/5 motor strength present throughout Sensory Exam: No Sensory deficit (Neuro) Extrem: Other: right shoulder pain, no swelling or deformity Psych: Appearance: grossly normal Course Reevaluation(s) Reevaluation #1: patient with syncope with fecal incontinence followed by vomiting. At this time eKG, labs, troponin and shoulder xray all normal. Will admit for syncope Time: 19:37 Reevaluation #2: Dr. Pink would like a head CT Time: 19:48 MDM - Fall Lab Data Result diagrams: 11/02/20 18:53 11/02/20 18:53 Labs: Lab Results 11/02/20 11/02/20 11/02/20 Range/Units 18:53 18:53 18:53 WBC 4.0 L (4.8-10.8) X10*3/uL RBC 3.58 L (4.60-5.80) X10*6/uL Hgb 12.1 L (14.0-18.0) g/dl Hct 36.0 L (42-52) % MCV 100.6 H (80-98) fL MCH 33.8 H (27.0-33.0) pg MCHC 33.6 (31.0-36.0) g/dl RDW 15.3 (11.0-16.0) % Plt Count 77 L D (160-400) X10*3/uL MPV 10.1 (9.4-12.4) fL Immature Gran % (Auto) 0.5 H (0.0-0.4) % Neut % (Auto) 50.9 (45-73) % Lymph % (Auto) 31.3 (20-40) % [place] % (Auto) 14.5 H (2-11) % Eos % (Auto) 2.5 (0-4) % Baso % (Auto) 0.3 (0-2) % Lymph # (Auto) 1.3 (1.2-4.9) X10*3/uL [place] # (Auto) 0.6 (0.1-1.2) X10*3/uL Eos # (Auto) 0.1 (0.0-0.4) X10*3/uL Baso # (Auto) 0.0 (0.0-0.2) X10*3/uL Abs Immat Gran (auto) 0.02 (0.00-0.03) X10*3/uL Absolute Neuts (auto) 2.0 (2.0-8.3) X10*3/uL Absolute Nucleated RBC 0.000 (0.0-0.012) X10*3/uL Nucleated RBC % (auto) 0.0 (0.0-0.2) /100WBC PT (9.9-13.0) SEC INR (0.9-1.1) Sodium 141 (135-145) mmol/L Potassium 3.6 (3.3-5.1) mmol/L Chloride 109 H (96-108) mmol/L Carbon Dioxide 23 (22-29) mmol/L Anion Gap 13 (12-20) BUN 7 L (9-16) mg/dL Creatinine 1.11 (0.5-1.4) mg/dL Estim Creat Clear Calc 61.0 Estimated GFR > 60 Random Glucose 164 H (60-115) mg/dL Calcium 7.7 L (8.4-10.2) mg/dL Troponin I High Sens 8.8 (<3.5-35.0) ng/L 11/02/20 Range/Units 18:53 WBC (4.8-10.8) X10*3/uL RBC (4.60-5.80) X10*6/uL Hgb (14.0-18.0) g/dl Hct (42-52) % MCV (80-98) fL MCH (27.0-33.0) pg MCHC (31.0-36.0) g/dl RDW (11.0-16.0) % Plt Count (160-400) X10*3/uL MPV (9.4-12.4) fL Immature Gran % (Auto) (0.0-0.4) % Neut % (Auto) (45-73) % Lymph % (Auto) (20-40) % [place] % (Auto) (2-11) % Eos % (Auto) (0-4) % Baso % (Auto) (0-2) % Lymph # (Auto) (1.2-4.9) X10*3/uL [place] # (Auto) (0.1-1.2) X10*3/uL Eos # (Auto) (0.0-0.4) X10*3/uL Baso # (Auto) (0.0-0.2) X10*3/uL Abs Immat Gran (auto) (0.00-0.03) X10*3/uL Absolute Neuts (auto) (2.0-8.3) X10*3/uL Absolute Nucleated RBC (0.0-0.012) X10*3/uL Nucleated RBC % (auto) (0.0-0.2) /100WBC PT 41.6 H (9.9-13.0) SEC INR 3.6 H (0.9-1.1) Sodium (135-145) mmol/L Potassium (3.3-5.1) mmol/L Chloride (96-108) mmol/L Carbon Dioxide (22-29) mmol/L Anion Gap (12-20) BUN (9-16) mg/dL Creatinine (0.5-1.4) mg/dL Estim Creat Clear Calc Estimated GFR Random Glucose (60-115) mg/dL Calcium (8.4-10.2) mg/dL Troponin I High Sens (<3.5-35.0) ng/L Imaging Data shoulder: Radiologist's impression: IMPRESSION: Mild degenerative changes but no acute bony abnormality. ECG Data Attestation: I personally reviewed and interpreted this ECG as follows: Interpretation: normal sinus rate of 60, no st or twave changes Discharge Plan Discharge Clinical Impression: Syncope Qualifiers: Syncope type: unspecified Qualified Code(s): R55 - Syncope and collapse Patient Disposition: Admitted As Inpatient
[2020-11-02 18:41] VITALS: BP 130/84; BP 142/61; PULSE 58; PULSE 80; RESP 18; TEMP 36.7; O2SAT 98; BMI 30.5
--- NOTE | 2020-11-02 18:42 | ECG_ITS ---
Test Reason : FALL Blood Pressure : / mmHG Vent. Rate : 056 BPM Atrial Rate : 056 BPM P-R Int : 174 ms QRS Dur : 106 ms QT Int : 478 ms P-R-T Axes : 023 -16 046 degrees QTc Int : 461 ms Sinus bradycardia Moderate voltage criteria for LVH, may be normal variant Cannot rule out Septal infarct , age undetermined Abnormal ECG When compared with ECG of 07-MAY-2018 12:37, Minimal criteria for Septal infarct are now Present Referred By: Anjum Moody Electronically Signed By:SILVA OROPEZA
--- NOTE | 2020-11-02 18:55 | PC.NURSE ---
patient a&ox3-squaxin, at bedside, vss, ekg obtained, labs obtained, xray obtained, will continue to monitor.
[2020-11-02 19:00] LABS: Basophils Percent Auto 0.3 % (0-2); Eosinophils Absolute Auto 0.1 X10*3/uL (0.0-0.4); Eosinophils Percent Auto 2.5 % (0-4); Hemoglobin 12.1 g/dl (14.0-18.0); Imm Gran Abs Auto 0.02 X10*3/uL (0.00-0.03); Imm Gran Pct Auto 0.5 % (0.0-0.4); Lymphocytes Absolute Auto 1.3 X10*3/uL (1.2-4.9); Lymphocytes Percent Auto 31.3 % (20-40); MANUAL DIFF FLAG NO; Mean Corpuscular HGB Conc 33.6 g/dl (31.0-36.0); Mean Corpuscular Hemoglobin 33.8 pg (27.0-33.0); Mean Corpuscular Volume 100.6 fL (80-98); Mean Platelet Volume 10.1 fL (9.4-12.4); Monocytes Absolute Auto 0.6 X10*3/uL (0.1-1.2); Monocytes Percent Auto 14.5 % (2-11); Neutrophils Percent Auto 50.9 % (45-73); Red Blood Count 3.58 X10*6/uL (4.60-5.80); Red Cell Distribution Width 15.3 % (11.0-16.0)
[2020-11-02 19:01] LABS: Platelet Count 77 X10*3/uL (160-400)
[2020-11-02 19:07] LABS: INTERNATIONAL NORM RATIO 3.6 (0.9-1.1); Prothrombin Time 41.6 SEC (9.9-13.0)
[2020-11-02 19:26] LABS: Troponin-I High Sensitivity 8.8 ng/L (<3.5-35.0)
[2020-11-02 19:32] LABS: Anion Gap 13 (12-20); Blood Urea Nitrogen 7 mg/dL (9-16); Calcium 7.7 mg/dL (8.4-10.2); Carbon Dioxide 23 mmol/L (22-29); Chloride 109 mmol/L (96-108); Estimated Glomerular Filt Rate > 60; Glucose Random 164 mg/dL (60-115); Potassium 3.6 mmol/L (3.3-5.1); Sodium 141 mmol/L (135-145)
[2020-11-02 20:39] LABS: COVID-19 Test Negative (Negative); IDNOW Serial# 9DD0AD1C
[2020-11-02 21:02] VITALS: BP 145/59; PULSE 57; RESP 18; TEMP 36.8; O2SAT 100
--- NOTE | 2020-11-02 21:04 | PC.NURSE ---
patient a&ox3, surveillance system monitor sinus lauri, vss, pt c/o mild rt shoulder discomfort- pt states it feels like he was punched in the shoulder, call mc within reach, awaiting inpt bed, will continue to monitor.
--- NOTE | 2020-11-02 21:14 | PHA.MEDREC ---
Pharmacy Consult ? Medication Reconciliation Pharmacy has completed the medication reconciliation. Verified medications with patient's over the phone. There are no remarkable issues for provider's attention. Mahsa Shoemaker, LeilaniD
--- NOTE | 2020-11-02 21:52 | P.HPHOSP_ITS ---
History of Present Illness Date of Service: 11/02/20 Chief Complaint: Syncope This is a 75-year-old male with past medical history of AFib on Coumadin, BPH, diabetes, DVT, HTN, multiple myeloma, who presents to the hospital with complaints of dizziness. Patient currently being worked up for Parkinson's due to his frequent falls. He reports that he was walking off his porch steps when he lost his balance and fell. Patient denies having any loss of consciousness at the time of the fall, no dizziness, no shortness of breath and no chest pain. His and his neighbor caught him, they sat him down, but shortly after he lost consciousness for few seconds witnessed by his and his neighbor. His at bedside reports that the patient was unconscious for few seconds, when he came about he was not confused but had an episode of vomiting that resolved and no recurrence happened. He himself remembers the episode does not remember having any prodromal symptoms but reports that when he came about he felt like he had to move his bowels very badly and therefore had a fecal accident as his did not want him to move. Reports that he was working in the [employer] all day and did not have enough to drink. He denies having any headache, no blurry vision, no chest pain, no palpitations, no abdominal pain, no diarrhea or constipation, no urinary symptoms, and no lower extremity edema. Denies any weakness numbness or tingling. Patient hemodynamically stable with no significant abnormal vitals Labs are significant for is chronically low, hemoglobin of 12.1 which is around his baseline, platelets of 77 which is lower than his usual although chronically low as well, PT of 41, INR of 3.6, BUN of 7, creatinine of 1.1 which is around his baseline, COVID-19 negative, EKG shows sinus bradycardia with a heart rate of 56, no ST T-wave changes suggestive of ACS Head CT shows no evidence of acute intracranial abnormality, chronic small- vessel skin disease, multiple lucent lesions throughout the calvarium is seen on the prior study consistent with known multiple myeloma. Past medical history as below and confirmed with patient Review of Systems Review of Systems: Yes all other systems are reviewed and are negative [facility] Medical History (Updated 11/03/20 @ 05:54 by Jhonatan Pink MD) Afib BPH (benign prostatic hyperplasia) Diabetes Diabetes mellitus DVT (deep venous thrombosis) Glaucoma HTN (hypertension) Multiple myeloma Urinary retention due to benign prostatic hyperplasia Surgical History H/O cataract removal with insertion of prosthetic lens Social History Alcohol intake: current Alcohol intake frequency: holidays/special occasions only Patient Tobacco Use Status: Former Tobacco user Use of substances other than those prescribed or required for medical reasons: No Advance Directives: No Advance Directives Information Provided: No Meds Allergies Allergy/AdvReac Type Severity Reaction Status Date / Time No Known Allergies Allergy Verified 10/13/20 10:41 [No Known Allergies*] Active Medications: Current Medications Generic Name Dose Route Start Last Admin Trade Name Freq PRN Reason Stop Dose Admin Acetaminophen 650 mg 11/02/20 21:12 Acetaminophen 325 Mg Tablet PO Q6H PRN Pain, Mild (Pain Scale 1-3) Docusate Sodium 100 mg 11/02/20 21:12 Docusate Sodium 100 Mg Capsule PO DAILY PRN Constipation Pharmacy Consult 1 each 11/02/20 19:46 Consult Rx Perform Med Rec MISCELLANE ONCE PRN Consult order Sodium Chloride 3 ml 11/03/20 00:00 0.9 % Sodium Chloride Flush 3 Ml Syringe [facility] [place] Home Medications Medication Instructions Recorded Confirmed Last Taken Type metformin 500 mg tablet 500 mg PO BID 04/16/20 11/02/20 11/02/20 History omeprazole 20 mg capsule,delayed 20 mg PO DAILY 04/16/20 11/02/20 11/02/20 History release primidone 50 mg tablet 100 mg PO DAILY 04/16/20 11/02/20 11/02/20 History tamsulosin 0.4 mg capsule 0.4 mg PO BEDTIME 04/16/20 11/02/20 11/01/20 History zoledronic acid 4 mg/5 mL 4 mg IV Q2M 04/16/20 11/02/20 Unknown History intravenous solution diltiazem HCl 180 mg capsule,24 180 mg PO QAM 05/07/20 11/02/20 11/02/20 History hr,extended release latanoprost 0.005 % eye drops 1 drp OPHTHALMIC-RIGHT BEDTIME 05/07/20 11/02/20 11/01/20 History lenalidomide 25 mg capsule 25 mg PO DIRECTED 05/07/20 11/02/20 11/02/20 History acetaminophen 650 mg PO BEDTIME 11/02/20 11/02/20 11/01/20 History brimonidine 1 drp OPHTHALMIC-LEFT BID 11/02/20 11/02/20 11/02/20 History donepezil 1 tab PO DAILY 11/02/20 11/02/20 11/02/20 History metoprolol succinate 12.5 mg PO DAILY 11/02/20 11/02/20 11/02/20 History warfarin 5 mg PO MO 11/02/20 11/02/20 11/02/20 History warfarin 7.5 mg PO SUTUWETHFRSA 11/02/20 11/02/20 11/02/20 History Physical Exam Vital Signs and Narrative: Vital Signs: Last Vital Signs Temp 98.2 F 11/02/20 21:02 Pulse 57 11/02/20 21:02 Resp 18 11/02/20 21:02 BP 145/59 H 11/02/20 21:02 Pulse Ox 100 11/02/20 21:02 Body Mass Index 30.5 Const: General: cooperative and no acute distress Orientation/consciousness: patient oriented x3 Eyes: General: appearance normal, both eyes and all related structures Resp: Effort & Inspection: normal respiratory effort and able to speak in complete sentences Cardio: Rate: regular rate Rhythm: regular rhythm GI: Palpation (GI): Soft to palpation Auscultation: normal bowel sounds Skin: General skin exam: no rashes or lesions noted Neuro: Other: No neurological deficits General: patient oriented x3 Cognition (Neuro): normal cognition Extrem: Other: Strength 5/5 in all extremities General: Yes normal to inspection and Yes no pedal edema Results Labs CBC and Chem 7: 11/02/20 18:53 11/02/20 18:53 Labs: Laboratory Results - last 24 hr 11/02/20 11/02/20 11/02/20 18:53 18:53 18:53 MCV 100.6 H MCH 33.8 H MCHC 33.6 RDW 15.3 Plt Count 77 L D MPV 10.1 Immature Gran % (Auto) 0.5 H Neut % (Auto) 50.9 Lymph % (Auto) 31.3 [place] % (Auto) 14.5 H Eos % (Auto) 2.5 Baso % (Auto) 0.3 Lymph # (Auto) 1.3 [place] # (Auto) 0.6 Eos # (Auto) 0.1 Baso # (Auto) 0.0 Abs Immat Gran (auto) 0.02 Absolute Neuts (auto) 2.0 Absolute Nucleated RBC 0.000 Nucleated RBC % (auto) 0.0 PT INR Anion Gap 13 Estim Creat Clear Calc 61.0 Estimated GFR > 60 Random Glucose 164 H Calcium 7.7 L Troponin I High Sens 8.8 COVID-19 (JOSIAH) COVID-19 Clin Com 11/02/20 11/02/20 18:53 20:17 MCV MCH MCHC RDW Plt Count MPV Immature Gran % (Auto) Neut % (Auto) Lymph % (Auto) [place] % (Auto) Eos % (Auto) Baso % (Auto) Lymph # (Auto) [place] # (Auto) Eos # (Auto) Baso # (Auto) Abs Immat Gran (auto) Absolute Neuts (auto) Absolute Nucleated RBC Nucleated RBC % (auto) PT 41.6 H INR 3.6 H Anion Gap Estim Creat Clear Calc Estimated GFR Random Glucose Calcium Troponin I High Sens COVID-19 (JOSIAH) Negative COVID-19 Clin Com See Note Imaging Radiologist's Impressions: Impressions Shoulder X-Ray 11/02/20 18:51 IMPRESSION: Mild degenerative changes but no acute bony abnormality. Head CT 11/02/20 19:46 IMPRESSION: 1. No evidence of acute intracranial abnormality. 2. 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 3. Multiple lucent lesions throughout the calvarium as seen on the prior study consistent with known multiple myeloma. Assessment and Plan (1) Syncope: Qualifiers: Syncope type: unspecified Qualified Code(s): R55 - Syncope and collapse Status: Acute (2) Supratherapeutic INR: Status: Acute This is a 75-year-old male with past medical history of AFib who presents to hospital syncopal episode # syncope - orthostatic versus cardiogenic versus neurogenic less likely - patient has no new EKG changes suggestive of acute arrhythmia or ACS - has history of AFib - patient was working in the [employer] all day with minimal p.o. intake with history of AFib - orthostatic vitals were not obtained in the ED Plan: - will obtain orthostatic vital - admit to telemetry for observation # supratherapeutic INR - INR of 3.6 - history of AFib - will hold today's dose - will obtain PT INR daily - resume his Coumadin once INR within normal range # AFib - continue diltiazem # hypertension - stable - continue diltiazem # BPH - continue tamsulosin # diabetes - hold med for - start low-dose sliding scale insulin - diabetic diet DVT prophylaxis: Warfarin Quality Stroke Does the patient have a stroke diagnosis?: No VTE Prior VTE?: No VTE Risk Level:: Medical - moderate - high VTE Device Contraindication: Treatment Not Indicated VTE Drug Contraindication: N/A - Med Ordered
[2020-11-02 22:22] VITALS: BP 149/61; PULSE 51; RESP 18; TEMP 36.7; O2SAT 99
[2020-11-03] VITALS (10 sets, daily range): BP systolic 144–189; BP diastolic 63–85; PULSE 50–89; RESP 18–20; TEMP 36.4–37.1; O2SAT 95–99; BMI 30.2
[2020-11-03 07:22] LABS: MANUAL DIFF FLAG NO
[2020-11-03 07:23] LABS: Basophils Percent Auto 0.2 % (0-2); Eosinophils Absolute Auto 0.1 X10*3/uL (0.0-0.4); Eosinophils Percent Auto 2.7 % (0-4); Hematocrit 34.5 % (42-52); Hemoglobin 11.9 g/dl (14.0-18.0); Imm Gran Abs Auto 0.01 X10*3/uL (0.00-0.03); Imm Gran Pct Auto 0.2 % (0.0-0.4); Lymphocytes Absolute Auto 1.3 X10*3/uL (1.2-4.9); Lymphocytes Percent Auto 29.3 % (20-40); Mean Corpuscular HGB Conc 34.5 g/dl (31.0-36.0); Mean Corpuscular Hemoglobin 34.4 pg (27.0-33.0); Mean Corpuscular Volume 99.7 fL (80-98); Monocytes Absolute Auto 0.6 X10*3/uL (0.1-1.2); Monocytes Percent Auto 13.4 % (2-11); Neutrophils Absolute Auto 2.4 X10*3/uL (2.0-8.3); Neutrophils Percent Auto 54.2 % (45-73); Red Blood Count 3.46 X10*6/uL (4.60-5.80); Red Cell Distribution Width 15.4 % (11.0-16.0); White Blood Count 4.5 X10*3/uL (4.8-10.8)
[2020-11-03 07:23] LABS: Glucose, Whole Blood 100 mg/dL (60-115)
[2020-11-03 07:24] LABS: Platelet Count 83 X10*3/uL (160-400)
[2020-11-03 07:29] LABS: INTERNATIONAL NORM RATIO 3.8 (0.9-1.1); Prothrombin Time 43.9 SEC (9.9-13.0)
[2020-11-03 07:45] LABS: Anion Gap 10 (12-20); Blood Urea Nitrogen 6 mg/dL (9-16); Calcium 7.8 mg/dL (8.4-10.2); Carbon Dioxide 26 mmol/L (22-29); Chloride 110 mmol/L (96-108); Creatinine Clr Calc Pharmacy 71.3; Estimated Glomerular Filt Rate > 60; Glucose Random 104 mg/dL (60-115); Potassium 4.1 mmol/L (3.3-5.1); Sodium 142 mmol/L (135-145)
[2020-11-03 08:52] LABS: Glucose, Whole Blood 133 mg/dL (60-115)
--- NOTE | 2020-11-03 09:01 | MHC.CM.PN ---
CM met with Patient at bedside and addressed IRIZARRY with him, providing him with the original and placing a copy on the chart. Patient lives in a house with his /HCP and he uses a cane to assist with mobility. Patient has had frequent falls and his goal for dc is to return home with new [facility] for home PT. CM has initiated and will follow for dc planning. PCP is Dr. Cheko Ellis.
[2020-11-03] MEDS: dilTIAZem HCL CD 180 MG CAP.ER.24H PO (10:01)
[2020-11-03] MEDS: Omeprazole 20 MG CAPSULE.DR PO (10:01)
[2020-11-03] MEDS: Primidone 50 MG TABLET 100 MG PO (10:02)
[2020-11-03] MEDS: Donepezil HCl 10 MG TABLET PO (10:02)
[2020-11-03] MEDS: 0.9 % Sodium Chloride Flush 3 ML SYRINGE IVFLUSH ×3 (10:03→20:21)
[2020-11-03 11:47] LABS: Glucose, Whole Blood 101 mg/dL (60-115)
--- NOTE | 2020-11-03 14:05 | CA_ITS ---
Transthoracic Echocardiogram Amended Patient (Last, First, Middle): Tonny Hernadez J Gender: Male Date of : 1945 Age: 75 Procedure Date: 11/03/2020 Procedure Type: Transthoracic Echocardiogram Location: [facility] [place] Height: 172.72 cm Weight: 89.81 kg BSA: 2.04 m2 Heart Rate: bpm BP: 164 / 70 mmHg Starch Treating Assistant: Referring MD: Robert Calderon MD Symptoms: syncope Study Quality: Fair ECG Rhythm: Atrial Fibrillation Conclusions: - The left ventricular systolic function is normal. The visually estimated ejection fraction is between 55-60%. - No obvious valvular pathology seen on this study. - The left atrium is moderately dilated. Findings Left Ventricle Normal left ventricular cavity size. There is mildly increased left ventricular wall thickness. The left ventricular systolic function is normal. The visually estimated ejection fraction is between 55-60%. There is no evidence of regional wall motion abnormalities. E/E prime ratio is <8, consistent with normal filling pressures. Evidence suggests grade I (mild) diastolic dysfunction. Right Ventricle Normal right ventricular cavity size and systolic function. Atria The left atrium is moderately dilated. The right atrium was not well visualized. Aortic Valve The aortic valve was not well visualized. There is no aortic valve stenosis. There is no aortic valve regurgitation. Mitral Valve The mitral valve appears normal. There is trace mitral valve regurgitation. There is no mitral valve stenosis. Pulmonic Valve The pulmonic valve was not well visualized. Tricuspid Valve There is trace tricuspid valve regurgitation. The pulmonary artery systolic pressure is normal. Great Vessels The asc aorta is normal in size. Venous The inferior vena cava was not well visualized. The inferior vena cava is normal in size. Pericardium/Pleural There is no evidence of pericardial effusion. Prior Study Comparison Changes noted compared to prior study dated: 10/03/2014. LVEF appears higher. Recommendations, Care & Conclusions No obvious valvular pathology seen on this study. Measurements 2D Linear Measurements IVSd: 1.10 0.6-0.9/0.6-1.0 cm LVIDd: 4.83 3.9-5.3/4.2-5.9 cm LVIDd Index: 2.37 2.4-3.2/2.2-3.1 cm/m2 LVIDs: 3.18 2.0-3.6 cm LVPWd: 1.13 0.7-1.1 cm Ao Root: 4.20 2.1-3.5 cm LA Diam: 4.20 2.7-3.8/3.0-4.0 cm LAIDs Index: 2.06 1.5-2.3 cm/m2 LV Mass: 248.79 67-162/88-224 g LV Mass Index: 121.95 43-95/49-115 g/m2 LVOT Diam: 2.60 3.0+(-)1.3 cm 2D Volumes LA Vol: 45.10 2D Systolic Function EF 4C: 61.70 >55% EF 2C: 55.60 >55% EF BiP: 59.20 >55% Mitral Valve MV Pk E: 0.62 MV PK A: 1.09 MV Decel Time: 346.00 E/A: 0.60 E'Lateral: 8.38 E'Medial: 5.22 E/E' Med: 11.90 E/E' Lat: 7.40 PHT: 101.00 MVA PHT: 2.18 Decel [place]: 1.80 Aortic Valve AoV Pk Varun: 1.31 AoV Mn Varun: 0.73 AoV VTI: 0.30 AoV Pk Grad: 7.00 Aov Mn Grad: 3.00 MARCIAL Cont.VTI: 3.74 LVOT LVOT Pk Varun: 0.80 LVOT Mn Varun: 0.45 LVOT VTI: 0.21 LVOT Pk Grad: 3.00 LVOT Mn Grad: 1.00 LVOT Diam: 2.60 LVOT Area: 5.31 Diastolic Function MV Pk E: 0.62 MV Pk A: 1.09 E/A: 0.60 E'Medial: 5.22 E/E' Med: 11.90 E' Laterial: 8.38 E/E' Lat: 7.40 Tricuspid Valve TR Pk Varun: 1.98 TR Pk Grad: 16.00 RA Press: 3.00 RVSP: 19.00 Great Vessels Aorta Ao Root-2D: 4.20 2.0-3.7 cm Ao Asc: 3.70 2.1-3.4 cm Pulmonary Valve PV Pk Varun: 1.13 Peak PV Grad: 5.00 Updated in Other Vendor System with Status of Final Anthony De La Cruz MD electronically signed on 11/03/2020 4:36:28 PM with status of Final
--- NOTE | 2020-11-03 15:31 | P.PNIM_ITS ---
Subjective Subjective Date of Service: 11/03/20 Interval History: no complaints Cardiovascular Cardiovascular: Reports no additional cardiovascular complaints Gastrointestinal Gastrointestinal: Reports no additional gastrointestinal complaints Physical Exam Vital Signs: Vital Signs: Last Vital Signs Temp 98 F 11/03/20 15:22 Pulse 60 11/03/20 15:22 Resp 18 11/03/20 15:22 BP 160/66 H 11/03/20 15:22 Pulse Ox 96 11/03/20 15:22 Body Mass Index 30.2 General: AO X 3, no acute distress Resp: CTA bilateral CVS: S1,S2,RRR GI: soft, non tender, non distended Neuro: motor grossly intact Psych: appropriate affect Objective Data Current Medications Generic Name Dose Route Start Last Admin Trade Name Freq PRN Reason Stop Dose Admin Acetaminophen 650 mg 11/02/20 21:12 Acetaminophen 325 Mg Tablet PO Q6H PRN Pain, Mild (Pain Scale 1-3) Brimonidine Tartrate 1 drop 11/03/20 09:00 11/03/20 10:03 Brimonidine Tartrate 0.2% Oph 5 Ml Bottle EYE-LEFT Not Given BID DAISY Diltiazem HCl 180 mg 11/03/20 09:00 11/03/20 10:01 Diltiazem Hcl Cd 180 Mg Cap.Er.24h PO 180 mg DAILY DAISY Administration Protocol Docusate Sodium 100 mg 11/02/20 21:12 Docusate Sodium 100 Mg Capsule PO DAILY PRN Constipation Donepezil HCl 10 mg 11/03/20 09:00 11/03/20 10:02 Donepezil Hcl 10 Mg Tablet PO 10 mg DAILY DAISY Administration Insulin Human Lispro 0 unit 11/03/20 07:30 11/03/20 11:52 Insulin Lispro 100 Unit/Ml 3 Ml Vial SUBCUT Not Given QIDACHS [facility] Protocol Latanoprost 1 drop 11/03/20 21:00 Latanoprost 0.005 % Ophth Myra 2.5 Ml Drops EYE-RIGHT BEDTIME DAISY Metoprolol Succinate 12.5 mg 11/03/20 09:00 11/03/20 10:05 Metoprolol Succinate Er 12.5 Mg Halftab.Er.24h PO Not Given DAILY [facility] Protocol Non-Formulary Medication 25 mg 11/03/20 09:00 Lenalidomide PO DAILY DAISY Omeprazole 20 mg 11/03/20 07:00 11/03/20 10:01 Omeprazole 20 Mg Capsule. PO 20 mg DAILY@0630 [facility] Administration Pharmacy Consult 1 each 11/02/20 19:46 Consult Rx Perform Med Rec MISCELLANE ONCE PRN Consult order Primidone 100 mg 11/03/20 09:00 11/03/20 10:02 Primidone 50 Mg Tablet PO 100 mg DAILY [facility] Administration Sodium Chloride 3 ml 11/03/20 00:00 11/03/20 15:27 0.9 % Sodium Chloride Flush 3 Ml Syringe IVFLUSH 3 ml QSHIFT [facility] Administration Tamsulosin HCl 0.4 mg 11/03/20 21:00 Tamsulosin Hcl 0.4 Mg Capsule PO BEDTIME [facility] Warfarin Sodium 5 mg 11/04/20 18:00 Warfarin Sodium 5 Mg Tablet PO DAILY@1800 [facility] Labs CBC & Chem 7: 11/03/20 07:07 11/03/20 07:07 Labs: Laboratory Results - last 24 hr 11/02/20 11/02/20 11/02/20 18:53 18:53 18:53 WBC 4.0 L RBC 3.58 L Hgb 12.1 L Hct 36.0 L MCV 100.6 H MCH 33.8 H MCHC 33.6 RDW 15.3 Plt Count 77 L D MPV 10.1 Immature Gran % (Auto) 0.5 H Neut % (Auto) 50.9 Lymph % (Auto) 31.3 [place] % (Auto) 14.5 H Eos % (Auto) 2.5 Baso % (Auto) 0.3 Lymph # (Auto) 1.3 [place] # (Auto) 0.6 Eos # (Auto) 0.1 Baso # (Auto) 0.0 Abs Immat Gran (auto) 0.02 Absolute Neuts (auto) 2.0 Absolute Nucleated RBC 0.000 Nucleated RBC % (auto) 0.0 PT INR Sodium 141 Potassium 3.6 Chloride 109 H Carbon Dioxide 23 Anion Gap 13 BUN 7 L Creatinine 1.11 Estim Creat Clear Calc 61.0 Estimated GFR > 60 POC Glucose Random Glucose 164 H Calcium 7.7 L Troponin I High Sens 8.8 COVID-19 ([facility]) COVID-19 Clin Com 11/02/20 11/02/20 11/03/20 18:53 20:17 07:07 WBC 4.5 L RBC 3.46 L Hgb 11.9 L Hct 34.5 L MCV 99.7 H MCH 34.4 H MCHC 34.5 RDW 15.4 Plt Count 83 L MPV 10.0 Immature Gran % (Auto) 0.2 Neut % (Auto) 54.2 Lymph % (Auto) 29.3 [place] % (Auto) 13.4 H Eos % (Auto) 2.7 Baso % (Auto) 0.2 Lymph # (Auto) 1.3 [place] # (Auto) 0.6 Eos # (Auto) 0.1 Baso # (Auto) 0.0 Abs Immat Gran (auto) 0.01 Absolute Neuts (auto) 2.4 Absolute Nucleated RBC 0.000 Nucleated RBC % (auto) 0.0 PT 41.6 H INR 3.6 H Sodium Potassium Chloride Carbon Dioxide Anion Gap BUN Creatinine Estim Creat Clear Calc Estimated GFR POC Glucose Random Glucose Calcium Troponin I High Sens COVID-19 ([facility]) Negative COVID-19 Clin Com See Note 11/03/20 11/03/20 11/03/20 07:07 07:07 07:14 WBC RBC Hgb Hct MCV MCH MCHC RDW Plt Count MPV Immature Gran % (Auto) Neut % (Auto) Lymph % (Auto) [place] % (Auto) Eos % (Auto) Baso % (Auto) Lymph # (Auto) [place] # (Auto) Eos # (Auto) Baso # (Auto) Abs Immat Gran (auto) Absolute Neuts (auto) Absolute Nucleated RBC Nucleated RBC % (auto) PT 43.9 H INR 3.8 H Sodium 142 Potassium 4.1 Chloride 110 H Carbon Dioxide 26 Anion Gap 10 L BUN 6 L Creatinine 0.95 Estim Creat Clear Calc 71.3 Estimated GFR > 60 POC Glucose 100 Random Glucose 104 D Calcium 7.8 L Troponin I High Sens COVID-19 ([facility]OSIA[facility]) COVID-19 Clin Com 11/03/20 11/03/20 08:48 11:35 WBC RBC Hgb Hct MCV MCH MCHC RDW Plt Count MPV Immature Gran % (Auto) Neut % (Auto) Lymph % (Auto) [place] % (Auto) Eos % (Auto) Baso % (Auto) Lymph # (Auto) [place] # (Auto) Eos # (Auto) Baso # (Auto) Abs Immat Gran (auto) Absolute Neuts (auto) Absolute Nucleated RBC Nucleated RBC % (auto) PT INR Sodium Potassium Chloride Carbon Dioxide Anion Gap BUN Creatinine Estim Creat Clear Calc Estimated GFR POC Glucose 133 H 101 Random Glucose Calcium Troponin I High Sens COVID-19 ([facility]OSIA[facility]) COVID-19 Clin Com Assessment and Plan (1) Syncope: Status: Acute Assessment and Plan: 75M presented with syncope syncope possible due to heat exhaustion but concern for cardiac arrtyhemia check echo monitor on tele orthostatics were negative afib with supratherapeutic inr continue cardizem, toprol, monitor inr, restart coumadin when <3 dm insulin bph flomax MM lenalidomide Quality Stroke Does the patient have a stroke diagnosis?: No VTE Prior VTE?: No VTE Risk Level:: Medical - moderate - high VTE Device Contraindication: Treatment Not Indicated VTE Drug Contraindication: N/A - Med Ordered
[2020-11-03 16:15] LABS: Glucose, Whole Blood 112 mg/dL (60-115)
[2020-11-03 20:12] LABS: Glucose, Whole Blood 114 mg/dL (60-115)
[2020-11-03] MEDS: Tamsulosin HCL 0.4 MG CAPSULE PO (20:21)
[2020-11-03] MEDS: Latanoprost 0.005 % Ophth Sol 2.5 ML DROPS 1 DROP EYE-RIGHT (20:22)
[2020-11-03] MEDS: Brimonidine Tartrate 0.2% Oph 5 ML BOTTLE 1 DROP EYE-LEFT (20:22)
[2020-11-04 04:00] VITALS: BP 150/75; PULSE 76; RESP 16; TEMP 36.8; O2SAT 96
[2020-11-04] MEDS: Omeprazole 20 MG CAPSULE.DR PO (06:15)
[2020-11-04 07:17] VITALS: BP 141/67; PULSE 74; RESP 20; TEMP 36.1; O2SAT 95
[2020-11-04 08:18] VITALS: BP 141/67; PULSE 74
[2020-11-04] MEDS: dilTIAZem HCL CD 180 MG CAP.ER.24H PO (08:18)
[2020-11-04] MEDS: 0.9 % Sodium Chloride Flush 3 ML SYRINGE IVFLUSH (08:18)
[2020-11-04] MEDS: Metoprolol Succinate ER 12.5 MG HALFTAB.ER.24H PO (08:18)
[2020-11-04] MEDS: Donepezil HCl 10 MG TABLET PO (08:19)
[2020-11-04] MEDS: Primidone 50 MG TABLET 100 MG PO (08:19)
[2020-11-04 08:20] LABS: Glucose, Whole Blood 122 mg/dL (60-115)
[2020-11-04 08:28] LABS: INTERNATIONAL NORM RATIO 2.1 (0.9-1.1); Prothrombin Time 24.5 SEC (9.9-13.0)
[2020-11-04 10:32] VITALS: BP 141/67; PULSE 74
[2020-11-04] MEDS: Brimonidine Tartrate 0.2% Oph 5 ML BOTTLE 1 DROP EYE-LEFT (10:41)
[2020-11-04 10:53] VITALS: BP 129/72; PULSE 86; RESP 18; TEMP 36.1; O2SAT 96
--- NOTE | 2020-11-04 11:08 | MHC.CM.PN ---
Per ROUNDS discussion, Patient will be medically cleared for dc to home today; PT is recommending home PT. A referral has been made to NA, who has been made aware of today's dc.
[2020-11-04 11:13] LABS: Glucose, Whole Blood 148 mg/dL (60-115)
--- NOTE | 2020-11-04 11:19 | P.DS_ITS ---
DS: Providers Provider Date of Service: 11/04/20 Date of admission: 11/02/20 20:57 Primary care physician: Unknown Physician DS: Diagnosis Discharge Diagnosis (1) Syncope: Status: Acute (2) Supratherapeutic INR: Status: Acute (3) Current use of anticoagulant therapy: Status: Acute (4) Fall: Status: Acute DS: Medications Discharge Medications Home Medications: Home Medications Medication Instructions Recorded Confirmed metformin 500 mg tablet 500 mg PO BID 04/16/20 11/02/20 omeprazole 20 mg capsule,delayed 20 mg PO DAILY 04/16/20 11/02/20 release primidone 50 mg tablet 100 mg PO DAILY 04/16/20 11/02/20 tamsulosin 0.4 mg capsule 0.4 mg PO BEDTIME 04/16/20 11/02/20 zoledronic acid 4 mg/5 mL 4 mg IV Q2M 04/16/20 11/02/20 intravenous solution diltiazem HCl 180 mg capsule,24 180 mg PO QAM 05/07/20 11/02/20 hr,extended release latanoprost 0.005 % eye drops 1 drp OPHTHALMIC-RIGHT BEDTIME 05/07/20 11/02/20 lenalidomide 25 mg capsule 25 mg PO DIRECTED 05/07/20 11/02/20 acetaminophen 325 mg tablet 650 mg PO BEDTIME 11/02/20 11/02/20 brimonidine 0.2 % eye drops 1 drp OPHTHALMIC-LEFT BID 11/02/20 11/02/20 donepezil 10 mg tablet 1 tab PO DAILY 11/02/20 11/02/20 metoprolol succinate 25 mg 12.5 mg PO DAILY 11/02/20 11/02/20 tablet,extended release 24 hr warfarin 5 mg tablet 5 mg PO MO 11/02/20 11/02/20 warfarin 7.5 mg tablet 7.5 mg PO SUTUWETHFRSA 11/02/20 11/02/20 DS: Summary Hospital Course Hospital Course: Admission note HPI This is a 75-year-old male with past medical history of AFib on Coumadin, BPH, diabetes, DVT, HTN, multiple myeloma, who presents to the hospital with complaints of dizziness.? Patient currently being worked up for Parkinson's due to his frequent falls.? He reports that he was walking off his porch steps when he lost his balance and fell.? Patient denies having any loss of consciousness at the time of the fall, no dizziness, no shortness of breath and no chest pain.? His and his neighbor caught him, they sat him down, but shortly after he lost consciousness for few seconds witnessed by his and his neighbor.? His at bedside reports that the patient was unconscious for few seconds, when he came about he was not confused but had an episode of vomiting that resolved and no recurrence happened.? He himself remembers the episode does not remember having any prodromal symptoms but reports that when he came about edwin betancourt felt like he had to move his bowels very badly and therefore had a fecal accident as his did not want him to move.? Reports that he was working in the [employer] all day and did not have enough to drink.? He denies having any headache, no blurry vision, no chest pain, no palpitations, no abdominal pain, no diarrhea or constipation, no urinary symptoms, and no lower extremity edema.? Denies any weakness numbness or tingling. ? Patient hemodynamically stable with no significant abnormal vitals Labs are significant for is chronically low, hemoglobin of 12.1 which is around his baseline, platelets of 77 which is lower than his usual although chronically low as well, PT of 41, INR of 3.6, BUN of 7, creatinine of 1.1 which is around his baseline, COVID-19 negative, Hospital course The patient was admitted to the hospital for evaluation of a fall with altered mentation. No clear syncopal episode described actually and thought to be related to heat exhaustion versus orthostatic. He was monitored with telemetry with no abnormal rhythm noted. Echo was done showing normal ejection fraction with no valvular abnormalities. INR was noted to be 3.6 at time of admission. Held for 1 day with warfarin improvement to 2.1. Discussed the need of adjustment of the warfarin dosage after he gets back home and repeated this at home and to discuss the results with his primary care. to continue his home medications with no changes. Time Spent with Patient Time attestation: Total time spent providing and/or coordinating discharge services: Discharge coordination time: Greater than 30 minutes Quality: Stroke Does the patient have a stroke diagnosis?: No Physical Exam Vital Signs: Vital Signs: Last Vital Signs Temp 97 F 11/04/20 10:53 Pulse 86 11/04/20 10:53 Resp 18 11/04/20 10:53 BP 129/72 11/04/20 10:53 Pulse Ox 96 11/04/20 10:53 Body Mass Index 30.2 Const: Other: Constitutional : Alert, oriented, not in distress Neck : Normal inspection, Supple Cardiovascular : Irregularly irregular, S1 S2, no lower extremity edema Respiratory : Good bilateral air entry, no crackles, wheezes or rhonchi Gastrointestinal: soft, lax, Normal bowel sounds, Non tender Skin : Warm/Dry, No rash Neurological : Alert & oriented x3, No focal deficit, bilateral fine tremors at rest DS: Data Data Completed and Pending Labs on day of discharge: Laboratory Results - last 24 hr 11/03/20 11/03/20 11/03/20 11:35 16:10 20:04 PT INR POC Glucose 101 112 114 11/04/20 11/04/20 11/04/20 08:02 08:16 10:53 PT 24.5 H D INR 2.1 H POC Glucose 122 H 148 H Discharge Plan Discharge Patient Disposition: Home Health Service Referrals: Sander DEVLIN [Outside] - 1 Week Physician,Unknown [Primary Care Provider] - 1 Week Discharge Medications: Continued donepezil 10 mg tablet 1 tab PO DAILY RF: 0 acetaminophen 325 mg Tablet 650 mg PO BEDTIME RF: 0 warfarin 7.5 mg Tablet 7.5 mg PO SUTUWETHFRSA RF: 0 brimonidine 0.2 % drops 1 drp ophthalmic-Left BID RF: 0 warfarin 5 mg tablet 5 mg PO MO RF: 0 metoprolol succinate 25 mg Tablet Extended Release 24 Hr 12.5 mg PO DAILY RF: 0 zoledronic acid 4 mg/5 mL solution 4 mg IV Q2M RF: 0 omeprazole 20 mg capsule,delayed release(DR/EC) 20 mg PO DAILY RF: 0 primidone 50 mg tablet 100 mg PO DAILY RF: 0 tamsulosin 0.4 mg capsule 0.4 mg PO BEDTIME RF: 0 metformin 500 mg tablet 500 mg PO BID RF: 0 lenalidomide 25 mg capsule 25 mg PO DIRECTED RF: 0 diltiazem HCl 180 mg capsule,extended release 24 hr 180 mg PO QAM RF: 0 latanoprost 0.005 % drops 1 drp ophthalmic-Right BEDTIME RF: 0 Discharge Orders: Discharge Order (Routine); Ordered 07/28/21 Ordered By: Denita Freedman Diet: advance to usual diet Activity on Discharge: As tolerated Stand Alone Forms: Patient Portal Discharge page Care Plan Goals: Read below Health Concerns: Read below Plan of Treatment: You were admitted to the hospital for monitoring after sustaining a fall with a concern of Syncope. Your heart monitoring and ECHO did not show any concerning abnormalities. you were able to participate with physical therapy with recommendations for home PT. Your INR level was noted to be mildly elevated, improved back to target with holding the Warfarin. Assessment: Drink plenty of water to avoid dehydration and heat exhaustion To do PT at home Continue home dose Warfarin and follow with PCP for further adjustement of the dosage.
== END 2020-11-04 13:00 | disposition home health service (06) ==
LOC: HO.ED 19:37 → HO.EDOVER 21:02 → HO.IMC 11-03 07:23
PROVIDERS: Internal Medicine; Admitting Provider Internal Medicine; Emergency Provider Emergency Medicine; PCP Internal Medicine Medical Oncology; Visit Provider Student in an Organized Health Care Education/Training Program
DX: R55 Syncope and collapse (principal); S09.90XA Unspecified injury of head, initial encounter; S49.91XA Unspecified injury of right shoulder and upper arm, initial encounter; W10.9XXA Fall (on) (from) unspecified stairs and steps, initial encounter; Y93.01 Activity, walking, marching and hiking; Y92.008 Other place in unspecified non-institutional (private) residence as the place of occurrence of the external cause; Y99.8 Other external cause status; R11.10 Vomiting, unspecified; I48.91 Unspecified atrial fibrillation; E11.9 Type 2 diabetes mellitus without complications; I10 Essential (primary) hypertension; R79.1 Abnormal coagulation profile; N40.0 Benign prostatic hyperplasia without lower urinary tract symptoms; Z20.822 Contact with and (suspected) exposure to COVID-19; Z87.891 Personal history of nicotine dependence; Z91.81 History of falling; Z85.79 Personal history of other malignant neoplasms of lymphoid, hematopoietic and related tissues; Z79.01 Long term (current) use of anticoagulants; Z79.84 Long term (current) use of oral hypoglycemic drugs; Z79.899 Other long term (current) drug therapy
CPT/HCPCS: 36415; 70450; 73030; 80048; 82947; 84484; 85025; 85610; 87635; 93005; 93306; 97162; 99219; 99285

== ENCOUNTER 2020-11-10 | Outpatient (REF) | payer MEDICARE, SELFPAY ==
[2020-11-10 14:04] LABS: Prothrombin Time 54.9 SEC (9.9-13.0)
[2020-11-10 14:10] LABS: INTERNATIONAL NORM RATIO 4.7 (0.9-1.1)
== END 2020-11-10 00:01 | disposition home or self-care (01) ==
LOC: HO.HMGCLNP
PROVIDERS: Visit Provider Internal Medicine Medical Oncology
DX: I48.0 Paroxysmal atrial fibrillation (principal); Z51.81 Encounter for therapeutic drug level monitoring; Z79.01 Long term (current) use of anticoagulants
CPT/HCPCS: 85610; Q3014

== ENCOUNTER → 2020-11-12 15:30 | Outpatient (BNVA) | payer MEDICARE, SELFPAY | PROVIDERS: PCP Internal Medicine Medical Oncology; Visit Provider Internal Medicine ==

== ENCOUNTER → 2020-11-16 15:45 | Outpatient (BNVA) | payer MEDICARE, SELFPAY | PROVIDERS: PCP Internal Medicine Medical Oncology; Visit Provider Internal Medicine | DX: I48.0 Paroxysmal atrial fibrillation (principal) | CPT/HCPCS: Q3014 ==

== ENCOUNTER → 2020-11-24 14:48 | Outpatient (BNVA) | payer MEDICARE, SELFPAY | PROVIDERS: PCP Internal Medicine Medical Oncology; Visit Provider Internal Medicine | DX: I48.0 Paroxysmal atrial fibrillation (principal) | CPT/HCPCS: Q3014 ==

== ENCOUNTER 2020-11-30 09:48 | Outpatient (REF) | payer MEDICARE, SELFPAY ==
[2020-11-30 10:47] LABS: MANUAL DIFF FLAG NO
[2020-11-30 10:52] LABS: Eosinophils Absolute Auto 0.1 X10*3/uL (0.0-0.4); Eosinophils Percent Auto 3.7 % (0-4); Hematocrit 39.6 % (42-52); Hemoglobin 13.1 g/dl (14.0-18.0); Lymphocytes Absolute Auto 1.4 X10*3/uL (1.2-4.9); Lymphocytes Percent Auto 45.2 % (20-40); Mean Corpuscular HGB Conc 33.1 g/dl (31.0-36.0); Mean Corpuscular Hemoglobin 33.6 pg (27.0-33.0); Mean Corpuscular Volume 101.5 fL (80-98); Mean Platelet Volume 10.7 fL (9.4-12.4); Monocytes Absolute Auto 0.4 X10*3/uL (0.1-1.2); Neutrophils Absolute Auto 1.1 X10*3/uL (2.0-8.3); Neutrophils Percent Auto 37.1 % (45-73); Platelet Count 93 X10*3/uL (160-400); Red Cell Distribution Width 15.9 % (11.0-16.0)
[2020-11-30 11:10] LABS: Alanine Aminotransferase 19 U/L (0-40); Alkaline Phosphatase 63 U/L (39-117); Anion Gap 12 (12-20); Aspartate Amino Transferase 17 U/L (5-37); Bilirubin Total 0.6 mg/dL (0.0-1.0); Blood Urea Nitrogen 10 mg/dL (9-16); Calcium 8.7 mg/dL (8.4-10.2); Carbon Dioxide 25 mmol/L (22-29); Chloride 108 mmol/L (96-108); Estimated Glomerular Filt Rate 56; Glucose Random 142 mg/dL (60-115); Potassium 4.2 mmol/L (3.3-5.1); Sodium 141 mmol/L (135-145); Total Protein 6.9 g/dL (6.5-8.0)
[2020-12-02 09:50] LABS: Prot Elec - Albumin 3.7 g/dL (3.8-4.8); Prot Elec - Alpha1 0.3 g/dL (0.2-0.3); Prot Elec - Alpha2 0.7 g/dL (0.5-0.9); Prot Elec - Beta 1 0.4 g/dL (0.4-0.6); Prot Elec - Beta 2 0.4 g/dL (0.2-0.5); Prot Elec - Gamma 1.3 g/dL (0.8-1.7); Prot Elec - Total Protein 6.7 g/dL (6.1-8.1)
[2020-12-02 12:37] LABS: Kappa Light Chain, Free Serum 1018.6 mg/L (3.3-19.4); Kappa/Lambda Lt Ch Free Ratio 41.07 (0.26-1.65); Lambda Light Chain, Free Serum 24.8 mg/L (5.7-26.3)
[2020-12-03 14:42] LABS: IgA 339 mg/dL (70-320); IgG 1270 mg/dL (600-1540); IgM 35 mg/dL (50-300)
[2020-12-10 14:32] LABS: Kappa, Serum 393 mg/dL (176-443); Kappa/Lambda Ratio, Serum 2.89 (1.29-2.55); Lambda, Serum 136 mg/dL (91-240)
== END 2020-11-30 09:49 | disposition home or self-care (01) ==
LOC: HO.LAB 09:48
PROVIDERS: PCP Internal Medicine Medical Oncology; Visit Provider Internal Medicine Medical Oncology
DX: C90.00 Multiple myeloma not having achieved remission (principal); I10 Essential (primary) hypertension; D69.6 Thrombocytopenia, unspecified
CPT/HCPCS: 36415; 80053; 82784; 83520; 83883; 84165; 85025; 86334

== ENCOUNTER → 2020-12-01 11:23 | Outpatient (BNVA) | payer MEDICARE, SELFPAY | PROVIDERS: PCP Internal Medicine Medical Oncology; Visit Provider Internal Medicine | DX: Z13.89 Encounter for screening for other disorder (principal) | CPT/HCPCS: Q3014 ==

== ENCOUNTER → 2020-12-09 11:25 | Outpatient (BNVA) | payer MEDICARE, SELFPAY | PROVIDERS: PCP Internal Medicine Medical Oncology; Visit Provider Internal Medicine | DX: I48.0 Paroxysmal atrial fibrillation (principal); Z51.81 Encounter for therapeutic drug level monitoring; Z79.01 Long term (current) use of anticoagulants | CPT/HCPCS: 85610; 99211 ==

== ENCOUNTER → 2020-12-16 09:48 | Outpatient (BNVA) | payer MEDICARE, SELFPAY | PROVIDERS: PCP Internal Medicine Medical Oncology; Visit Provider Internal Medicine | DX: I48.0 Paroxysmal atrial fibrillation (principal); Z51.81 Encounter for therapeutic drug level monitoring; Z79.01 Long term (current) use of anticoagulants | CPT/HCPCS: 85610; 99211 ==

== ENCOUNTER 2020-12-21 11:06 | Outpatient (REF) | payer MEDICARE, SELFPAY ==
[2020-12-21 11:47] LABS: MANUAL DIFF FLAG NO
[2020-12-21 12:05] LABS: Basophils Percent Auto 0.2 % (0-2); Eosinophils Absolute Auto 0.2 X10*3/uL (0.0-0.4); Eosinophils Percent Auto 2.7 % (0-4); Hematocrit 38.6 % (42-52); Hemoglobin 13.1 g/dl (14.0-18.0); Imm Gran Abs Auto 0.08 X10*3/uL (0.00-0.03); Imm Gran Pct Auto 1.4 % (0.0-0.4); Lymphocytes Absolute Auto 1.2 X10*3/uL (1.2-4.9); Lymphocytes Percent Auto 21.7 % (20-40); Mean Corpuscular HGB Conc 33.9 g/dl (31.0-36.0); Mean Corpuscular Volume 103.2 fL (80-98); Mean Platelet Volume 10.2 fL (9.4-12.4); Monocytes Absolute Auto 0.5 X10*3/uL (0.1-1.2); Monocytes Percent Auto 8.7 % (2-11); Neutrophils Absolute Auto 3.7 X10*3/uL (2.0-8.3); Neutrophils Percent Auto 65.3 % (45-73); Platelet Count 103 X10*3/uL (160-400); Red Blood Count 3.74 X10*6/uL (4.60-5.80); White Blood Count 5.7 X10*3/uL (4.8-10.8)
[2020-12-21 12:18] LABS: Alanine Aminotransferase 10 U/L (0-40); Albumin Level 3.6 g/dL (3.5-5.0); Alkaline Phosphatase 57 U/L (39-117); Anion Gap 13 (12-20); Aspartate Amino Transferase 13 U/L (5-37); Bilirubin Total 0.4 mg/dL (0.0-1.0); Blood Urea Nitrogen 12 mg/dL (9-16); Calcium 8.8 mg/dL (8.4-10.2); Carbon Dioxide 25 mmol/L (22-29); Chloride 108 mmol/L (96-108); Estimated Glomerular Filt Rate > 60; Glucose Random 144 mg/dL (60-115); Potassium 4.7 mmol/L (3.3-5.1); Sodium 141 mmol/L (135-145)
== END 2020-12-21 11:07 | disposition home or self-care (01) ==
LOC: HO.LAB 11:06
PROVIDERS: PCP Internal Medicine Medical Oncology; Visit Provider Internal Medicine Medical Oncology
DX: C90.00 Multiple myeloma not having achieved remission (principal); D69.6 Thrombocytopenia, unspecified
CPT/HCPCS: 36415; 80053; 85025

== ENCOUNTER → 2020-12-22 10:46 | Outpatient (BNVA) | payer MEDICARE, SELFPAY | PROVIDERS: PCP Internal Medicine Medical Oncology; Visit Provider Internal Medicine | DX: I48.0 Paroxysmal atrial fibrillation (principal); Z51.81 Encounter for therapeutic drug level monitoring; Z79.01 Long term (current) use of anticoagulants | CPT/HCPCS: 85610; 99211 ==

== ENCOUNTER → 2020-12-29 10:46 | Outpatient (BNVA) | payer MEDICARE, SELFPAY | PROVIDERS: PCP Internal Medicine Medical Oncology; Visit Provider Internal Medicine | DX: I48.0 Paroxysmal atrial fibrillation (principal); Z51.81 Encounter for therapeutic drug level monitoring; Z79.01 Long term (current) use of anticoagulants | CPT/HCPCS: 85610; 99211 ==

== ENCOUNTER → 2021-01-07 10:28 | Outpatient (BNVA) | payer MEDICARE, SELFPAY | PROVIDERS: PCP Internal Medicine Medical Oncology; Referring Provider Internal Medicine Medical Oncology; Visit Provider Internal Medicine Cardiovascular Disease | DX: I48.0 Paroxysmal atrial fibrillation (principal); I10 Essential (primary) hypertension | CPT/HCPCS: 99202 ==

== ENCOUNTER 2021-01-11 10:09 | Outpatient (REF) | payer MEDICARE, SELFPAY ==
[2021-01-11 14:16] LABS: Basophils Percent Auto 1.4 % (0-2); Eosinophils Absolute Auto 0.1 X10*3/uL (0.0-0.4); Eosinophils Percent Auto 3.7 % (0-4); Hematocrit 35.7 % (42-52); Hemoglobin 11.7 g/dl (14.0-18.0); Imm Gran Abs Auto 0.01 X10*3/uL (0.00-0.03); Imm Gran Pct Auto 0.5 % (0.0-0.4); Lymphocytes Absolute Auto 0.9 X10*3/uL (1.2-4.9); Lymphocytes Percent Auto 41.2 % (20-40); MANUAL DIFF FLAG SCAN; Mean Corpuscular HGB Conc 32.8 g/dl (31.0-36.0); Mean Corpuscular Hemoglobin 34.2 pg (27.0-33.0); Mean Corpuscular Volume 104.4 fL (80-98); Mean Platelet Volume 11.3 fL (9.4-12.4); Monocytes Absolute Auto 0.3 X10*3/uL (0.1-1.2); Monocytes Percent Auto 14.4 % (2-11); Neutrophils Absolute Auto 0.8 X10*3/uL (2.0-8.3); Neutrophils Percent Auto 38.8 % (45-73); Red Blood Count 3.42 X10*6/uL (4.60-5.80); Red Cell Distribution Width 15.9 % (11.0-16.0); SCAN SMEAR FLAG 1
[2021-01-11 14:20] LABS: Platelet Count 72 X10*3/uL (160-400); White Blood Count 2.2 X10*3/uL (4.8-10.8)
[2021-01-11 14:28] LABS: Alanine Aminotransferase 12 U/L (0-40); Albumin Level 3.5 g/dL (3.5-5.0); Alkaline Phosphatase 46 U/L (39-117); Anion Gap 10 (12-20); Aspartate Amino Transferase 13 U/L (5-37); Bilirubin Total 0.3 mg/dL (0.0-1.0); Blood Urea Nitrogen 10 mg/dL (9-16); Calcium 8.1 mg/dL (8.4-10.2); Carbon Dioxide 28 mmol/L (22-29); Chloride 108 mmol/L (96-108); Estimated Glomerular Filt Rate > 60; Glucose Random 127 mg/dL (60-115); Potassium 4.8 mmol/L (3.3-5.1); Sodium 141 mmol/L (135-145); Total Protein 5.7 g/dL (6.5-8.0)
[2021-01-11 14:43] LABS: SLIDE REVIEW VERIFIED
== END 2021-01-11 10:10 | disposition home or self-care (01) ==
LOC: HO.10HDL 10:09
PROVIDERS: Visit Provider Internal Medicine Medical Oncology
DX: C90.00 Multiple myeloma not having achieved remission (principal)
CPT/HCPCS: 36415; 80053; 85025

== ENCOUNTER → 2021-01-12 10:42 | Outpatient (BNVA) | payer MEDICARE, SELFPAY | PROVIDERS: PCP Internal Medicine Medical Oncology; Visit Provider Internal Medicine | DX: I48.0 Paroxysmal atrial fibrillation (principal); Z51.81 Encounter for therapeutic drug level monitoring; Z79.01 Long term (current) use of anticoagulants | CPT/HCPCS: 85610; 99211 ==

== ENCOUNTER → 2021-01-15 11:25 | Outpatient (REF) | payer MEDICARE, SELFPAY ==
--- NOTE | 2021-01-15 11:31 | HM_ITS ---
Total monitoring time 12 days. Underlying rhythm is sinus. Minimum heart rate 39/Min. Maximum 124/Min. Average 58/minute. No atrial fibrillation or flutter. 8 supraventricular episodes. Longest 26 beats. PVC burden 0.18%. 13 episodes of NSVT, longest 5 beats. Energy 1.8%. 3 morphologies. 329 couplets. No patient events. MTDD
== END ==
LOC: HO.CARD 11:25
PROVIDERS: PCP Internal Medicine Medical Oncology; Visit Provider Internal Medicine Cardiovascular Disease
DX: I48.0 Paroxysmal atrial fibrillation (principal)
CPT/HCPCS: 93246

== ENCOUNTER 2021-01-22 11:18 | Outpatient (REF) | payer MEDICARE, SELFPAY ==
[2021-01-22 11:48] LABS: MANUAL DIFF FLAG NO
[2021-01-22 12:01] LABS: Basophils Percent Auto 0.6 % (0-2); Eosinophils Absolute Auto 0.2 X10*3/uL (0.0-0.4); Eosinophils Percent Auto 4.5 % (0-4); Hematocrit 36.3 % (42-52); Hemoglobin 12.2 g/dl (14.0-18.0); Imm Gran Abs Auto 0.02 X10*3/uL (0.00-0.03); Imm Gran Pct Auto 0.6 % (0.0-0.4); Lymphocytes Absolute Auto 1.1 X10*3/uL (1.2-4.9); Lymphocytes Percent Auto 31.5 % (20-40); Mean Corpuscular HGB Conc 33.6 g/dl (31.0-36.0); Mean Platelet Volume 11.1 fL (9.4-12.4); Monocytes Absolute Auto 0.6 X10*3/uL (0.1-1.2); Monocytes Percent Auto 17.5 % (2-11); Neutrophils Absolute Auto 1.5 X10*3/uL (2.0-8.3); Neutrophils Percent Auto 45.3 % (45-73); Red Blood Count 3.49 X10*6/uL (4.60-5.80); Red Cell Distribution Width 16.1 % (11.0-16.0); White Blood Count 3.4 X10*3/uL (4.8-10.8)
[2021-01-22 12:07] LABS: Platelet Count 82 X10*3/uL (160-400)
[2021-01-22 12:39] LABS: Alanine Aminotransferase 18 U/L (0-40); Albumin Level 3.6 g/dL (3.5-5.0); Alkaline Phosphatase 50 U/L (39-117); Anion Gap 9 (12-20); Aspartate Amino Transferase 16 U/L (5-37); Bilirubin Total 0.5 mg/dL (0.0-1.0); Blood Urea Nitrogen 10 mg/dL (9-16); Calcium 8.4 mg/dL (8.4-10.2); Carbon Dioxide 28 mmol/L (22-29); Chloride 107 mmol/L (96-108); Estimated Glomerular Filt Rate > 60; Glucose Random 123 mg/dL (60-115); Potassium 4.3 mmol/L (3.3-5.1); Sodium 140 mmol/L (135-145); Total Protein 5.8 g/dL (6.5-8.0)
== END 2021-01-22 11:19 | disposition home or self-care (01) ==
LOC: HO.LAB 11:18
PROVIDERS: PCP Internal Medicine Medical Oncology; Visit Provider Internal Medicine Medical Oncology
DX: C90.00 Multiple myeloma not having achieved remission (principal)
CPT/HCPCS: 36415; 80053; 85025; 85610; 99211

== ENCOUNTER → 2021-01-29 10:55 | Outpatient (BNVA) | payer MEDICARE, SELFPAY | PROVIDERS: PCP Internal Medicine Medical Oncology; Visit Provider Internal Medicine | DX: I48.0 Paroxysmal atrial fibrillation (principal); Z51.81 Encounter for therapeutic drug level monitoring; Z79.01 Long term (current) use of anticoagulants | CPT/HCPCS: 85610; 99211 ==

== ENCOUNTER 2021-02-11 11:04 | Outpatient (REF) | payer MEDICARE, SELFPAY ==
[2021-02-11 11:25] LABS: MANUAL DIFF FLAG NO
[2021-02-11 11:37] LABS: Basophils Percent Auto 0.9 % (0-2); Eosinophils Absolute Auto 0.1 X10*3/uL (0.0-0.4); Eosinophils Percent Auto 2.8 % (0-4); Hematocrit 39.4 % (42.0-52.0); Hemoglobin 12.9 g/dl (14.0-18.0); Imm Gran Abs Auto 0.01 X10*3/uL (0.00-0.03); Imm Gran Pct Auto 0.3 % (0.0-0.4); Lymphocytes Absolute Auto 1.3 X10*3/uL (1.2-4.9); Mean Corpuscular HGB Conc 32.7 g/dl (31.0-36.0); Mean Corpuscular Hemoglobin 34.7 pg (27.0-33.0); Mean Corpuscular Volume 105.9 fL (80.0-98.0); Monocytes Absolute Auto 0.3 X10*3/uL (0.1-1.2); Monocytes Percent Auto 8.8 % (2-11); Neutrophils Absolute Auto 1.43 x10*3/uL (2.0-8.3); Neutrophils Percent Auto 45.2 % (45-73); Platelet Count 123 X10*3/uL (160-400); Red Blood Count 3.72 X10*6/uL (4.60-5.80); Red Cell Distribution Width 15.1 % (11.0-16.0); White Blood Count 3.2 X10*3/uL (4.8-10.8)
[2021-02-11 12:04] LABS: Alanine Aminotransferase 13 U/L (0-40); Albumin Level 3.8 g/dL (3.5-5.0); Alkaline Phosphatase 85 U/L (39-117); Anion Gap 11 (12-20); Aspartate Amino Transferase 14 U/L (5-37); Bilirubin Total 0.4 mg/dL (0.0-1.0); Blood Urea Nitrogen 9 mg/dL (9-16); Calcium 8.6 mg/dL (8.4-10.2); Carbon Dioxide 26 mmol/L (22-29); Chloride 107 mmol/L (96-108); Estimated Glomerular Filt Rate > 60; Glucose Random 185 mg/dL (60-115); Potassium 4.3 mmol/L (3.3-5.1); Sodium 140 mmol/L (135-145); Total Protein 6.2 g/dL (6.5-8.0)
[2021-02-11 13:07] LABS: Estimated Average Glucose 120 mg/dL; Hemoglobin A1c % 5.8 %
[2021-02-14 12:51] LABS: Prot Elec - Albumin 3.7 g/dL (3.8-4.8); Prot Elec - Alpha1 0.3 g/dL (0.2-0.3); Prot Elec - Alpha2 0.7 g/dL (0.5-0.9); Prot Elec - Beta 1 0.4 g/dL (0.4-0.6); Prot Elec - Beta 2 0.3 g/dL (0.2-0.5); Prot Elec - Gamma 0.8 g/dL (0.8-1.7); Prot Elec - Total Protein 6.3 g/dL (6.1-8.1)
[2021-02-15 22:52] LABS: Kappa Light Chain, Free Serum 1037.7 mg/L (3.3-19.4); Kappa/Lambda Lt Ch Free Ratio 77.44 (0.26-1.65); Lambda Light Chain, Free Serum 13.4 mg/L (5.7-26.3)
[2021-02-16 15:07] LABS: IgA 188 mg/dL (70-320); IgG 873 mg/dL (600-1540); IgM 27 mg/dL (50-300)
[2021-02-24 14:46] LABS: Kappa, Serum 225 mg/dL (176-443); Kappa/Lambda Ratio, Serum 2.65 (1.29-2.55); Lambda, Serum 85 mg/dL (91-240)
== END 2021-02-11 11:05 | disposition home or self-care (01) ==
LOC: HO.LAB 11:04
PROVIDERS: PCP Internal Medicine Medical Oncology; Visit Provider Internal Medicine Medical Oncology
DX: C90.00 Multiple myeloma not having achieved remission (principal); E11.9 Type 2 diabetes mellitus without complications; D69.6 Thrombocytopenia, unspecified
CPT/HCPCS: 36415; 80053; 82784; 83036; 83520; 83883; 84165; 85025; 86334

== ENCOUNTER → 2021-02-15 10:40 | Outpatient (BNVA) | payer MEDICARE, SELFPAY | PROVIDERS: PCP Internal Medicine Medical Oncology; Visit Provider Internal Medicine | DX: I48.0 Paroxysmal atrial fibrillation (principal); Z51.81 Encounter for therapeutic drug level monitoring; Z79.01 Long term (current) use of anticoagulants | CPT/HCPCS: 85610; 99211 ==

== ENCOUNTER 2021-02-25 10:58 | Outpatient (REF) | payer MEDICARE, SELFPAY ==
--- NOTE | ~2021-02-25 | XR_ITS ---
EXAMINATION: XR LUMBOSACRAL SPINE WITH OBLIQUES CLINICAL INFORMATION: Compression fractures pain. COMPARISON: Previous x-rays most recent September 2020 TECHNIQUE: AP, both oblique, and lateral views of the lumbar spine. Lateral view of the lumbosacral junction. FINDINGS: There is mild curvature of the lower lumbar spine to the left. Bone alignment is otherwise normal. There is stable appearance to the compression fractures and post vertebroplasty changes of the L2 and L4 vertebral bodies. No new fracture is seen. There is multilevel degenerative disc disease, spondylosis and facet arthritis. Paraspinal soft tissues are unremarkable. XR/XR lumbar spine 4V min IMPRESSION: Stable appearance of the L2 and L4 vertebral body compression fractures and post vertebroplasty changes. No new fracture. Multilevel degenerative changes.
[2021-02-25 12:28] LABS: Basophils Percent Auto 0.2 % (0-2); Eosinophils Absolute Auto 0.1 X10*3/uL (0.0-0.4); MANUAL DIFF FLAG SCAN; PLT CLUMP 1; Red Cell Distribution Width 15.7 % (11.0-16.0); SCAN SMEAR FLAG 1
[2021-02-25 12:30] LABS: Eosinophils Percent Auto 2.5 % (0-4); Hematocrit 36.3 % (42.0-52.0); Hemoglobin 12.2 g/dl (14.0-18.0); Imm Gran Abs Auto 0.04 X10*3/uL (0.00-0.03); Imm Gran Pct Auto 0.8 % (0.0-0.4); Lymphocytes Absolute Auto 1.4 X10*3/uL (1.2-4.9); Lymphocytes Percent Auto 26.7 % (20-40); Mean Corpuscular HGB Conc 33.6 g/dl (31.0-36.0); Mean Corpuscular Hemoglobin 35.8 pg (27.0-33.0); Mean Corpuscular Volume 106.5 fL (80.0-98.0); Mean Platelet Volume 10.9 fL (9.4-12.4); Monocytes Absolute Auto 0.8 X10*3/uL (0.1-1.2); Monocytes Percent Auto 15.5 % (2-11); Neutrophils Absolute Auto 2.9 x10*3/uL (2.0-8.3); Neutrophils Percent Auto 54.3 % (45-73); Red Blood Count 3.41 X10*6/uL (4.60-5.80); White Blood Count 5.3 X10*3/uL (4.8-10.8)
[2021-02-25 12:32] LABS: Platelet Count 67 X10*3/uL (160-400)
[2021-02-25 13:07] LABS: Alanine Aminotransferase 14 U/L (0-40); Albumin Level 3.7 g/dL (3.5-5.0); Alkaline Phosphatase 60 U/L (39-117); Anion Gap 10 (12-20); Aspartate Amino Transferase 13 U/L (5-37); Bilirubin Total 0.4 mg/dL (0.0-1.0); Blood Urea Nitrogen 14 mg/dL (9-16); Calcium 8.1 mg/dL (8.4-10.2); Carbon Dioxide 27 mmol/L (22-29); Chloride 107 mmol/L (96-108); Estimated Glomerular Filt Rate > 60; Glucose Random 131 mg/dL (60-115); Potassium 4.4 mmol/L (3.3-5.1); Sodium 140 mmol/L (135-145); Total Protein 5.7 g/dL (6.5-8.0)
== END 2021-02-25 10:59 | disposition home or self-care (01) ==
LOC: HO.XRAY 10:58
PROVIDERS: Absent Provider Internal Medicine Medical Oncology; PCP Internal Medicine Medical Oncology; Visit Provider Internal Medicine
DX: C90.00 Multiple myeloma not having achieved remission (principal); M54.50 Low back pain, unspecified; M48.56XS Collapsed vertebra, not elsewhere classified, lumbar region, sequela of fracture
CPT/HCPCS: 36415; 72110; 80053; 85025; 85610; 99211

== ENCOUNTER → 2021-03-02 13:37 | Outpatient (BNVA) | payer MEDICARE, SELFPAY | PROVIDERS: PCP Internal Medicine Medical Oncology; Visit Provider Internal Medicine | DX: I48.0 Paroxysmal atrial fibrillation (principal); Z51.81 Encounter for therapeutic drug level monitoring; Z79.01 Long term (current) use of anticoagulants | CPT/HCPCS: 85610; 99211 ==

== ENCOUNTER 2021-03-16 11:11 | Outpatient (REF) | payer MEDICARE, SELFPAY ==
[2021-03-16 12:01] LABS: MANUAL DIFF FLAG NO
[2021-03-16 12:24] LABS: Basophils Percent Auto 1.1 % (0-2); Eosinophils Absolute Auto 0.1 X10*3/uL (0.0-0.4); Eosinophils Percent Auto 2.5 % (0-4); Hematocrit 39.4 % (42.0-52.0); Imm Gran Abs Auto 0.01 X10*3/uL (0.00-0.03); Imm Gran Pct Auto 0.4 % (0.0-0.4); Lymphocytes Absolute Auto 0.8 X10*3/uL (1.2-4.9); Mean Corpuscular Hemoglobin 35.2 pg (27.0-33.0); Mean Corpuscular Volume 106.8 fL (80.0-98.0); Mean Platelet Volume 10.8 fL (9.4-12.4); Monocytes Absolute Auto 0.3 X10*3/uL (0.1-1.2); Monocytes Percent Auto 11.3 % (2-11); Neutrophils Absolute Auto 1.6 x10*3/uL (2.0-8.3); Neutrophils Percent Auto 55.7 % (45-73); Red Blood Count 3.69 X10*6/uL (4.60-5.80); Red Cell Distribution Width 14.8 % (11.0-16.0); White Blood Count 2.8 X10*3/uL (4.8-10.8)
[2021-03-16 12:26] LABS: Platelet Count 94 X10*3/uL (160-400)
[2021-03-16 12:59] LABS: Alanine Aminotransferase 17 U/L (0-40); Albumin Level 3.9 g/dL (3.5-5.0); Alkaline Phosphatase 88 U/L (39-117); Anion Gap 12 (12-20); Aspartate Amino Transferase 16 U/L (5-37); Bilirubin Total 0.7 mg/dL (0.0-1.0); Blood Urea Nitrogen 9 mg/dL (9-16); Calcium 8.9 mg/dL (8.4-10.2); Carbon Dioxide 25 mmol/L (22-29); Chloride 110 mmol/L (96-108); Estimated Glomerular Filt Rate > 60; Glucose Random 183 mg/dL (60-115); Potassium 4.4 mmol/L (3.3-5.1); Sodium 143 mmol/L (135-145); Total Protein 6.3 g/dL (6.5-8.0)
[2021-03-22 13:41] LABS: Prot Elec - Albumin 3.4 g/dL (3.8-4.8); Prot Elec - Alpha1 0.3 g/dL (0.2-0.3); Prot Elec - Alpha2 0.8 g/dL (0.5-0.9); Prot Elec - Beta 1 0.4 g/dL (0.4-0.6); Prot Elec - Beta 2 0.2 g/dL (0.2-0.5); Prot Elec - Gamma 0.8 g/dL (0.8-1.7); Prot Elec - Total Protein 5.9 g/dL (6.1-8.1)
[2021-03-22 21:40] LABS: Kappa Light Chain, Free Serum 1164.1 mg/L (3.3-19.4); Kappa/Lambda Lt Ch Free Ratio 70.55 (0.26-1.65); Lambda Light Chain, Free Serum 16.5 mg/L (5.7-26.3)
[2021-03-24 21:52] LABS: Beta-2 Microglobulin, Serum 3.23 mg/L (< OR = 2.51)
[2021-03-25 14:21] LABS: Kappa, Serum 252 mg/dL (176-443); Kappa/Lambda Ratio, Serum 3.07 (1.29-2.55); Lambda, Serum 82 mg/dL (91-240)
[2021-03-25 22:07] LABS: IgA 199 mg/dL (70-320); IgG 890 mg/dL (600-1540); IgM 31 mg/dL (50-300)
== END 2021-03-16 11:12 | disposition home or self-care (01) ==
LOC: HO.LAB 11:11
PROVIDERS: PCP Internal Medicine Medical Oncology; Visit Provider Internal Medicine Medical Oncology
DX: C90.00 Multiple myeloma not having achieved remission (principal); D69.6 Thrombocytopenia, unspecified; I48.0 Paroxysmal atrial fibrillation; Z51.81 Encounter for therapeutic drug level monitoring; Z79.01 Long term (current) use of anticoagulants
CPT/HCPCS: 36415; 80053; 82232; 82784; 83520; 83883; 84165; 85025; 85610; 86334; 99211

== ENCOUNTER → 2021-03-23 11:07 | Outpatient (BNVA) | payer MEDICARE, SELFPAY | PROVIDERS: PCP Internal Medicine Medical Oncology; Visit Provider Internal Medicine | DX: I48.0 Paroxysmal atrial fibrillation (principal); Z51.81 Encounter for therapeutic drug level monitoring; Z79.01 Long term (current) use of anticoagulants | CPT/HCPCS: 85610; 99211 ==

== ENCOUNTER → 2021-03-26 10:09 | Outpatient (BNVA) | payer MEDICARE, SELFPAY | PROVIDERS: PCP Internal Medicine Medical Oncology; Visit Provider Internal Medicine | DX: I48.0 Paroxysmal atrial fibrillation (principal); Z51.81 Encounter for therapeutic drug level monitoring; Z79.01 Long term (current) use of anticoagulants | CPT/HCPCS: 85610; 99211 ==

== ENCOUNTER → 2021-04-06 13:39 | Outpatient (BNVA) | payer MEDICARE, SELFPAY | PROVIDERS: PCP Internal Medicine Medical Oncology; Visit Provider Internal Medicine | DX: I48.0 Paroxysmal atrial fibrillation (principal); Z51.81 Encounter for therapeutic drug level monitoring; Z79.01 Long term (current) use of anticoagulants | CPT/HCPCS: 85610; 99211 ==

== ENCOUNTER → 2021-04-22 10:39 | Outpatient (BNVA) | payer MEDICARE, SELFPAY | PROVIDERS: PCP Internal Medicine Medical Oncology; Visit Provider Internal Medicine | DX: I48.0 Paroxysmal atrial fibrillation (principal); Z51.81 Encounter for therapeutic drug level monitoring; Z79.01 Long term (current) use of anticoagulants | CPT/HCPCS: 85610; 99211 ==

== ENCOUNTER 2021-04-27 10:19 | Outpatient (REF) | payer MEDICARE, SELFPAY ==
[2021-04-27 12:30] LABS: Basophils Percent Auto 0.4 % (0-2); Eosinophils Absolute Auto 0.1 X10*3/uL (0.0-0.4); Eosinophils Percent Auto 3.4 % (0-4); Hemoglobin 12.9 g/dl (14.0-18.0); Imm Gran Abs Auto 0.01 X10*3/uL (0.00-0.03); Imm Gran Pct Auto 0.4 % (0.0-0.4); Lymphocytes Absolute Auto 0.7 X10*3/uL (1.2-4.9); Lymphocytes Percent Auto 30.3 % (20-40); Mean Corpuscular HGB Conc 32.3 g/dl (31.0-36.0); Mean Corpuscular Hemoglobin 34.6 pg (27.0-33.0); Mean Corpuscular Volume 107.2 fL (80.0-98.0); Mean Platelet Volume 10.7 fL (9.4-12.4); Monocytes Absolute Auto 0.4 X10*3/uL (0.1-1.2); Monocytes Percent Auto 15.4 % (2-11); Neutrophils Absolute Auto 1.2 x10*3/uL (2.0-8.3); Neutrophils Percent Auto 50.1 % (45-73); Red Blood Count 3.73 X10*6/uL (4.60-5.80); Red Cell Distribution Width 14.7 % (11.0-16.0)
[2021-04-27 12:32] LABS: Platelet Count 74 X10*3/uL (160-400); White Blood Count 2.3 X10*3/uL (4.8-10.8)
[2021-04-27 13:12] LABS: Alanine Aminotransferase 9 U/L (0-40); Albumin Level 3.6 g/dL (3.5-5.0); Alkaline Phosphatase 59 U/L (39-117); Anion Gap 11 (12-20); Aspartate Amino Transferase 12 U/L (5-37); Bilirubin Total 0.6 mg/dL (0.0-1.0); Blood Urea Nitrogen 9 mg/dL (9-16); Calcium 8.7 mg/dL (8.4-10.2); Carbon Dioxide 28 mmol/L (22-29); Chloride 109 mmol/L (96-108); Estimated Glomerular Filt Rate > 60; Glucose Random 146 mg/dL (60-115); Potassium 5.2 mmol/L (3.3-5.1); Sodium 143 mmol/L (135-145); Total Protein 5.8 g/dL (6.5-8.0)
[2021-04-28 19:11] LABS: Kappa Light Chain, Free Serum 1060.8 mg/L (3.3-19.4); Kappa/Lambda Lt Ch Free Ratio 72.16 (0.26-1.65); Lambda Light Chain, Free Serum 14.7 mg/L (5.7-26.3)
[2021-04-28 20:30] LABS: Prot Elec - Albumin 3.5 g/dL (3.8-4.8); Prot Elec - Alpha1 0.3 g/dL (0.2-0.3); Prot Elec - Alpha2 0.7 g/dL (0.5-0.9); Prot Elec - Beta 1 0.3 g/dL (0.4-0.6); Prot Elec - Beta 2 0.3 g/dL (0.2-0.5); Prot Elec - Gamma 0.7 g/dL (0.8-1.7); Prot Elec - Total Protein 5.8 g/dL (6.1-8.1)
[2021-04-30 12:10] LABS: IgA 166 mg/dL (70-320); IgG 806 mg/dL (600-1540); IgM 25 mg/dL (50-300)
[2021-04-30 15:16] LABS: Kappa, Serum 250 mg/dL (176-443); Kappa/Lambda Ratio, Serum 3.52 (1.29-2.55); Lambda, Serum 71 mg/dL (91-240)
== END 2021-04-27 10:20 | disposition home or self-care (01) ==
LOC: HO.LAB 10:19
PROVIDERS: Absent Provider Internal Medicine Medical Oncology; PCP Internal Medicine Medical Oncology; Visit Provider Internal Medicine
DX: I48.0 Paroxysmal atrial fibrillation (principal); C90.00 Multiple myeloma not having achieved remission; D69.6 Thrombocytopenia, unspecified; D70.2 Other drug-induced agranulocytosis; Z51.81 Encounter for therapeutic drug level monitoring; Z79.01 Long term (current) use of anticoagulants
CPT/HCPCS: 36415; 80053; 82784; 83521; 83883; 84165; 85025; 85610; 86334; 99211

== ENCOUNTER 2021-04-29 11:45 | Outpatient (REF) | payer MEDICARE, SELFPAY ==
--- NOTE | ~2021-04-29 | XR_ITS ---
EXAMINATION: XR CHEST CLINICAL INFORMATION: Dyspnea COMPARISON: Chest radiographs 07/11/2007 TECHNIQUE: 2 frontal views and a lateral projection are obtained for 3 views. FINDINGS: The lungs are clear. There is no pneumothorax, airspace consolidation, or groundglass opacity. Tapering at the cardiac apex is likely related to areolar tissue. There is some old linear scarring left lateral base. The heart is normal in size. The vascularity is normal. The costophrenic sulci are clear. There is accentuated thoracic kyphosis with multilevel degenerative changes. There is been prior vertebral augmentation upper lumbar spine. XR/XR chest 2V IMPRESSION: No acute intrathoracic disease.
== END 2021-04-29 11:46 | disposition home or self-care (01) ==
LOC: HO.XRAY 11:45
PROVIDERS: PCP Internal Medicine Medical Oncology; Visit Provider Internal Medicine Medical Oncology
DX: R06.00 Dyspnea, unspecified (principal)
CPT/HCPCS: 71046

== ENCOUNTER → 2021-05-04 10:42 | Outpatient (BNVA) | payer MEDICARE, SELFPAY | PROVIDERS: PCP Internal Medicine Medical Oncology; Visit Provider Internal Medicine | DX: I48.0 Paroxysmal atrial fibrillation (principal); Z51.81 Encounter for therapeutic drug level monitoring; Z79.01 Long term (current) use of anticoagulants | CPT/HCPCS: 85610; 99211 ==

== ENCOUNTER 2021-05-11 11:51 | Outpatient (REF) | payer MEDICARE, SELFPAY ==
[2021-05-11 12:11] LABS: MANUAL DIFF FLAG NO
[2021-05-11 13:12] LABS: Basophils Percent Auto 0.3 % (0-2); Eosinophils Absolute Auto 0.1 X10*3/uL (0.0-0.4); Eosinophils Percent Auto 3.4 % (0-4); Hematocrit 38.4 % (42.0-52.0); Hemoglobin 12.5 g/dl (14.0-18.0); Imm Gran Abs Auto 0.01 X10*3/uL (0.00-0.03); Imm Gran Pct Auto 0.3 % (0.0-0.4); Lymphocytes Absolute Auto 1.1 X10*3/uL (1.2-4.9); Lymphocytes Percent Auto 37.3 % (20-40); Mean Corpuscular HGB Conc 32.6 g/dl (31.0-36.0); Mean Corpuscular Hemoglobin 34.9 pg (27.0-33.0); Mean Corpuscular Volume 107.3 fL (80.0-98.0); Mean Platelet Volume 11.7 fL (9.4-12.4); Monocytes Absolute Auto 0.4 X10*3/uL (0.1-1.2); Monocytes Percent Auto 15.1 % (2-11); Neutrophils Absolute Auto 1.3 x10*3/uL (2.0-8.3); Neutrophils Percent Auto 43.6 % (45-73); Platelet Count 66 X10*3/uL (160-400); Red Blood Count 3.58 X10*6/uL (4.60-5.80); White Blood Count 2.9 X10*3/uL (4.8-10.8)
[2021-05-11 13:29] LABS: Anion Gap 10 (12-20); Blood Urea Nitrogen 11 mg/dL (9-16); Calcium 8.7 mg/dL (8.4-10.2); Carbon Dioxide 28 mmol/L (22-29); Chloride 108 mmol/L (96-108); Estimated Glomerular Filt Rate > 60; Glucose Random 149 mg/dL (60-115); Potassium 4.4 mmol/L (3.3-5.1); Sodium 142 mmol/L (135-145)
[2021-05-11 13:53] LABS: Prostate Specific Antigen 3.54 ng/mL (<0.05-4.0)
== END 2021-05-11 11:52 | disposition home or self-care (01) ==
LOC: HO.LAB 11:51
PROVIDERS: PCP Internal Medicine Medical Oncology; Visit Provider Internal Medicine Medical Oncology
DX: Z12.5 Encounter for screening for malignant neoplasm of prostate (principal); C90.00 Multiple myeloma not having achieved remission; N40.1 Benign prostatic hyperplasia with lower urinary tract symptoms; D69.6 Thrombocytopenia, unspecified
CPT/HCPCS: 36415; 80048; 84153; 85025

== ENCOUNTER → 2021-05-13 10:06 | Outpatient (BNVA) | payer MEDICARE, SELFPAY | PROVIDERS: PCP Internal Medicine Medical Oncology; Visit Provider Internal Medicine | DX: I48.0 Paroxysmal atrial fibrillation (principal); Z51.81 Encounter for therapeutic drug level monitoring; Z79.01 Long term (current) use of anticoagulants | CPT/HCPCS: 85610; 99211 ==

== ENCOUNTER 2021-05-13 11:00 | Outpatient (RCR) | payer MEDICARE, SELFPAY ==
--- NOTE | 2021-04-08 07:53 | MHC.PT.EP ---
[facility] [place] Office [place] Office [place] Office [address] Mark Gomes [address] [phone] F: [phone] F: [phone] F: [phone] F: [phone] Physical Therapy Plan of Care Date of Evaluation: Date of Surgery: Diagnosis: lumbar back pain Assessment: Pt is a 75yo M with hx including multiple myeloma who presents to PT with low back pain R side > L side. He presents today with current impairments in pain, decreased lumbar ROM, decreased core stab, decreased hip/glute strength, increased forward flexion of trunk, impaired posture, decreased balance, and impaired gait. He is TTP with reproduction of symptoms throughout R thoracolumbar PS. He is limited functionally by sidelying, transitional movements, sit<>stands, and the morning. He is a good candidate for skilled PT services to address current impairments in order to facilitate return to PLOF. He will be seen 2x/week for 5 weeks. Frequency and Duration: The patient will be seen 2x/week for 5 weeks Short Term Goals: Pt will be I with HEP to promote self management of symptoms Pt will report pain < 6 / 10 after functional mobility [employer] Goals: Pt will improve hip ABD strength by 1 grade to assist with standing functional tasks Pt will perform sit<>stands without pain 90% of the time Treatment Plan: Modalities to reduce pain, spasms and effusion. Manual therapy to restore motion and function. Therapeutic exercise to improve strength and flexibility. Neuromuscular re-education for posture and balance. Therapeutic activities to return to functional activities of daily living. Electronically signed by: Tabitha Nowak, PT, DPT Please sign and return to therapist. Thank you for your referral.
--- NOTE | 2021-05-13 11:45 | MHC.PT.DC ---
[facility] [place] Office [place] Office [place] Office [address] Mark Gomes [address] [phone] F: [phone] F: [phone] F: [phone] F: [phone] Physical Therapy Discharge Report Diagnosis: lumbar back pain Date of Surgery: Date of Evaluation: 04/06/21 Date of Discharge: 05/13/21 Treatments to Date: 8 Cancellations to Date: 2 No Shows to Date: 0 Discharge Status: Improved Function Independent with HEP Discharge Summary: Pt has made fair progress since SOC. He has met his STGs and made progress toward his LTGs. He has improved his strength and flexibility noted throughout exercises and functional tasks but does continue to have pain in his low back. He has reached a functional plateau with PT. Pt is being D/C from PT at this time. Provided pt with printed, updated copy of HEP and pt verbalized understanding. No further PT indicated at this time. Electronically signed by: Tabitha Nowak, PT, DPT Please sign and return to therapist. Thank you for your referral.
== END 2021-05-13 11:46 | disposition home or self-care (01) ==
LOC: HO.PT 11:00
PROVIDERS: PCP Internal Medicine Medical Oncology; Visit Provider Internal Medicine Medical Oncology
DX: M54.50 Low back pain, unspecified (principal)
CPT/HCPCS: 97110; 97162

== ENCOUNTER 2021-05-18 10:17 | Outpatient (REF) | payer MEDICARE, SELFPAY ==
--- NOTE | ~2021-05-18 | PE_ITS ---
EXAMINATION: Fluorine-18 FDG PET/CT Scan CLINICAL INDICATION: Initial treatment management. Myeloma, restaging. The patient states no prior chemotherapy or radiation therapy. PROCEDURE: 89 minutes following the intravenous administration of 18.8 mCi of fluorine 18 FDG, images of the whole body were obtained using a combined PET/CT scanner with CT scan based attenuation correction. No oral contrast was administered. No intravenous contrast was administered. Transverse, coronal, sagittal, and volume reconstruction projections were obtained. The patient's blood glucose as determined by a finger stick, was 118 mg/dl immediately prior to injection. Total CT exam dose-length product 1141.54 mGy-cm * These CT images were obtained using dose optimization techniques as appropriate, variously including the following: Automated exposure control * Adjustment of mA and/or kV according to patient size (this includes techniques or standardized protocols for targeted exams where dose is matched to indication/reason for exam; i.e. extremities or head) * Use of iterative reconstruction technique COMPARISON: No prior PET CT scan or other relevant tomographic imaging studies are available for comparison. FINDINGS: (Slice numbers described in this report are numbered superiorly to inferiorly with slice #1 in the head) NECK AND VISUALIZED HEAD: No foci of abnormal FDG activity are noted. The distribution of FDG activity is physiological. There is no cervical lymphadenopathy. THORAX: There are no foci of abnormal FDG activity. No pulmonary nodules are visualized. Trace pleural fluid is present on the left with no associated abnormal FDG activity. There is no right-sided pleural effusion or pericardial fluid or pneumothorax. There is no mediastinal, supraclavicular, or axillary lymphadenopathy. ABDOMEN AND PELVIS: There is diffusely increased FDG activity throughout the gastrointestinal tract, predominantly in the large bowel and likely physiological and possibly related to metformin therapy in this diabetic patient. There is diverticulosis without evidence of diverticulitis. The hollow viscera are otherwise unremarkable. There are no foci of abnormal FDG activity in the abdomen or pelvis. The liver, gallbladder, and spleen are unremarkable. There are several hypodense cysts present in both kidneys and these are markedly FDG photopenic. Some renal cortical atrophy is present bilaterally. The kidneys are otherwise unremarkable. The adrenal glands are unremarkable. The pancreas is moderately atrophic but otherwise unremarkable. There is no retroperitoneal, mesenteric, pelvic or inguinal lymphadenopathy. The prostate gland is enlarged measuring 5.6 cm in largest transverse dimension. MUSCULOSKELETAL: A mild thoracolumbar scoliosis with lower lumbar convexity to the left is noted. Augmentation cement is present within compression deformities in the L2 and L5 L4 vertebral bodies and there is mildly increased FDG activity at both of these sites. There is weakly increased FDG activity associated with compression deformity and lytic abnormality in the L1 vertebral body. In addition there more intensely increased FDG activity in a prominent right anterolateral degenerative osteophyte extending off the L1-L2 disc space, SUVmax 5.3, slice 147/267. There is also mildly increased FDG activity associated with lytic changes in the L5 vertebral body. Mild diffuse FDG activity is present in the T11 vertebral body, SUVmax 5.0, slice 129/267. This is associated with mixed sclerotic and lytic changes on the CT images. All of these abnormalities are superimposed on diffuse degenerative changes in the spine. There is mildly increased activity in the sternoclavicular joints which is likely arthritic in etiology. There is a well-circumscribed 1.7 x 1.4 cm lesion in the left scapula just lateral to the acromion and this shows no abnormal FDG activity, slice 59/267. There is a focus of mildly increased activity at the posterior medial aspect of the left 12th rib with no definite CT abnormality there is a small focus of mildly increased FDG activity in the lateral aspect of the left seventh rib SUVmax 3.0, slice 117/267. This may be associated with a small fracture deformity but no obvious sclerotic or lytic lesion is present at this site. There are extensive lytic lesions present throughout the pelvis, most prominently in the right anterior iliac bone and the sacral ala bilaterally but additional abnormalities are present bilaterally in the posterior iliac bones. There is mild FDG accumulation in the anterior left iliac bone which shows greater than density that almost the entire remainder the pelvis. This may represent some normal bone marrow uptake at this site versus uptake in a healing lesion which is now relatively sclerotic. In the lower extremities there are no foci of abnormal FDG activity. There are no suspicious sclerotic or lytic lesions present in the lower extremities. VASCULAR: Diffuse vascular calcifications including coronary are noted. PET/PET CT fusion whole body IMPRESSION: 1. Multiple FDG avid vertebral lesions are present as described above. These are associated with predominantly lytic changes on the CT images, although there is weak FDG activity associated with augmentation cement present at L2 and L4. 2. More prominently increased activity is present associated with a degenerative osteophyte at the L1-L2 disc space as described above. This is probably due to inflammatory degenerative changes at this site. 3. There is extensive osteopenia throughout the pelvis and this is likely due to diffuse lytic changes. There is no associated abnormal FDG activity at these sites. There is mild FDG activity patient's blood present associated with more dense appearing bone in the anterior left iliac bone, and while this may represent pathological uptake, it also may represent some physiological uptake in a region of normal bone marrow. 4. Left seventh and 12th rib lesions are noted, with no corresponding CT the modalities. These may be malignant in etiology but could also be due to continued bone remodeling at prior fracture sites. 5. Although some of the abnormalities described above may be due to healing rib fractures, augmentation cement and a very prominent degenerative osteophyte at L1-L2, with the exception of the latter, they are all likely due to the patient's known myeloma. 6. Diffuse vascular calcifications including coronary.
== END 2021-05-18 10:18 | disposition home or self-care (01) ==
LOC: HO.PET 10:17
PROVIDERS: PCP Internal Medicine Medical Oncology; Visit Provider Internal Medicine Medical Oncology
DX: Z13.89 Encounter for screening for other disorder (principal)

== ENCOUNTER 2021-05-28 10:53 | Outpatient (REF) | payer MEDICARE, SELFPAY ==
[2021-05-28 11:55] LABS: Basophils Percent Auto 1.3 % (0-2); Eosinophils Percent Auto 1.3 % (0-4); Hematocrit 37.3 % (42.0-52.0); Hemoglobin 12.4 g/dl (14.0-18.0); Imm Gran Abs Auto 0.01 X10*3/uL (0.00-0.03); Imm Gran Pct Auto 0.4 % (0.0-0.4); Lymphocytes Absolute Auto 0.7 X10*3/uL (1.2-4.9); Lymphocytes Percent Auto 32.2 % (20-40); MANUAL DIFF FLAG SCAN; Mean Corpuscular HGB Conc 33.2 g/dl (31.0-36.0); Mean Corpuscular Volume 105.4 fL (80.0-98.0); Mean Platelet Volume 9.9 fL (9.4-12.4); Monocytes Absolute Auto 0.5 X10*3/uL (0.1-1.2); Monocytes Percent Auto 22.6 % (2-11); Neutrophils Percent Auto 42.2 % (45-73); Red Blood Count 3.54 X10*6/uL (4.60-5.80); Red Cell Distribution Width 15.1 % (11.0-16.0); SCAN SMEAR FLAG 1
[2021-05-28 11:59] LABS: White Blood Count 2.3 X10*3/uL (4.8-10.8)
[2021-05-28 12:27] LABS: Platelet Count 87 X10*3/uL (160-400)
[2021-05-28 12:28] LABS: SLIDE REVIEW VERIFIED
[2021-05-28 12:33] LABS: Alanine Aminotransferase 9 U/L (0-40); Albumin Level 3.6 g/dL (3.5-5.0); Alkaline Phosphatase 58 U/L (39-117); Anion Gap 11 (12-20); Aspartate Amino Transferase 10 U/L (5-37); Bilirubin Total 0.6 mg/dL (0.0-1.0); Blood Urea Nitrogen 9 mg/dL (9-16); Calcium 8.6 mg/dL (8.4-10.2); Carbon Dioxide 27 mmol/L (22-29); Chloride 107 mmol/L (96-108); Estimated Glomerular Filt Rate > 60; Glucose Random 170 mg/dL (60-115); Potassium 4.5 mmol/L (3.3-5.1); Sodium 140 mmol/L (135-145); Total Protein 5.7 g/dL (6.5-8.0)
[2021-05-31 12:45] LABS: Prot Elec - Albumin 3.5 g/dL (3.8-4.8); Prot Elec - Alpha1 0.3 g/dL (0.2-0.3); Prot Elec - Alpha2 0.8 g/dL (0.5-0.9); Prot Elec - Beta 1 0.4 g/dL (0.4-0.6); Prot Elec - Beta 2 0.3 g/dL (0.2-0.5); Prot Elec - Gamma 0.6 g/dL (0.8-1.7); Prot Elec - Total Protein 5.8 g/dL (6.1-8.1)
[2021-06-03 00:36] LABS: Kappa Light Chain, Free Serum 1856.6 mg/L (3.3-19.4); Kappa/Lambda Lt Ch Free Ratio 161.44 (0.26-1.65); Lambda Light Chain, Free Serum 11.5 mg/L (5.7-26.3)
[2021-06-03 10:11] LABS: IgA 145 mg/dL (70-320); IgG 723 mg/dL (600-1540); IgM 23 mg/dL (50-300)
[2021-06-03 14:27] LABS: Kappa, Serum 215 mg/dL (176-443); Kappa/Lambda Ratio, Serum 3.26 (1.29-2.55); Lambda, Serum 66 mg/dL (91-240)
== END 2021-05-28 10:54 | disposition home or self-care (01) ==
LOC: HO.LAB 10:53
PROVIDERS: PCP Internal Medicine Medical Oncology; Visit Provider Internal Medicine Medical Oncology
DX: C90.00 Multiple myeloma not having achieved remission (principal); D69.6 Thrombocytopenia, unspecified; I48.0 Paroxysmal atrial fibrillation; Z51.81 Encounter for therapeutic drug level monitoring; Z79.01 Long term (current) use of anticoagulants
CPT/HCPCS: 36415; 80053; 82784; 83521; 83883; 84165; 85025; 85610; 86334; 99211

== ENCOUNTER → 2021-06-09 10:45 | Outpatient (BNVA) | payer MEDICARE, SELFPAY | PROVIDERS: PCP Internal Medicine Medical Oncology; Visit Provider Internal Medicine | DX: I48.0 Paroxysmal atrial fibrillation (principal); Z51.81 Encounter for therapeutic drug level monitoring; Z79.01 Long term (current) use of anticoagulants | CPT/HCPCS: 85610; 99211 ==

== ENCOUNTER 2021-06-15 11:08 | Outpatient (REF) | payer MEDICARE, SELFPAY ==
[2021-06-15 12:00] LABS: MANUAL DIFF FLAG NO
[2021-06-15 12:09] LABS: Basophils Percent Auto 0.3 % (0-2); Eosinophils Absolute Auto 0.1 X10*3/uL (0.0-0.4); Eosinophils Percent Auto 2.3 % (0-4); Hematocrit 32.9 % (42.0-52.0); Hemoglobin 10.7 g/dl (14.0-18.0); Imm Gran Abs Auto 0.02 X10*3/uL (0.00-0.03); Imm Gran Pct Auto 0.5 % (0.0-0.4); Lymphocytes Absolute Auto 0.7 X10*3/uL (1.2-4.9); Lymphocytes Percent Auto 17.7 % (20-40); Mean Corpuscular HGB Conc 32.5 g/dl (31.0-36.0); Mean Corpuscular Hemoglobin 34.6 pg (27.0-33.0); Mean Corpuscular Volume 106.5 fL (80.0-98.0); Mean Platelet Volume 12.2 fL (9.4-12.4); Monocytes Absolute Auto 0.6 X10*3/uL (0.1-1.2); Monocytes Percent Auto 16.5 % (2-11); Neutrophils Absolute Auto 2.4 x10*3/uL (2.0-8.3); Neutrophils Percent Auto 62.7 % (45-73); Red Blood Count 3.09 X10*6/uL (4.60-5.80); White Blood Count 3.9 X10*3/uL (4.8-10.8)
[2021-06-15 12:11] LABS: Platelet Count 60 X10*3/uL (160-400)
[2021-06-15 12:34] LABS: Alanine Aminotransferase 15 U/L (0-40); Albumin Level 3.4 g/dL (3.5-5.0); Alkaline Phosphatase 55 U/L (39-117); Anion Gap 12 (12-20); Aspartate Amino Transferase 13 U/L (5-37); Bilirubin Total 0.9 mg/dL (0.0-1.0); Blood Urea Nitrogen 12 mg/dL (9-16); Calcium 8.2 mg/dL (8.4-10.2); Carbon Dioxide 26 mmol/L (22-29); Chloride 104 mmol/L (96-108); Estimated Glomerular Filt Rate > 60; Glucose Random 212 mg/dL (60-115); Potassium 4.2 mmol/L (3.3-5.1); Sodium 138 mmol/L (135-145); Total Protein 5.3 g/dL (6.5-8.0)
== END 2021-06-15 11:09 | disposition home or self-care (01) ==
LOC: HO.LAB 11:08
PROVIDERS: PCP Internal Medicine Medical Oncology; Visit Provider Internal Medicine Medical Oncology
DX: I48.0 Paroxysmal atrial fibrillation (principal); C90.00 Multiple myeloma not having achieved remission; Z51.81 Encounter for therapeutic drug level monitoring; Z79.01 Long term (current) use of anticoagulants
CPT/HCPCS: 36415; 80053; 85025; 85610; 99211

== ENCOUNTER 2021-06-29 11:25 | Outpatient (REF) | payer MEDICARE, SELFPAY ==
[2021-06-29 12:17] LABS: MANUAL DIFF FLAG NO
[2021-06-29 12:40] LABS: Basophils Percent Auto 0.4 % (0-2); Hemoglobin 10.6 g/dl (14.0-18.0); Imm Gran Abs Auto 0.02 X10*3/uL (0.00-0.03); Imm Gran Pct Auto 0.7 % (0.0-0.4); Mean Corpuscular Hemoglobin 34.5 pg (27.0-33.0); PLT CLUMP 1; Red Blood Count 3.07 X10*6/uL (4.60-5.80); Red Cell Distribution Width 15.5 % (11.0-16.0); SCAN SMEAR FLAG 1
[2021-06-29 12:43] LABS: Eosinophils Absolute Auto 0.1 X10*3/uL (0.0-0.4); Eosinophils Percent Auto 2.9 % (0-4); Hematocrit 32.3 % (42.0-52.0); Lymphocytes Percent Auto 33.9 % (20-40); Mean Corpuscular HGB Conc 32.8 g/dl (31.0-36.0); Mean Corpuscular Volume 105.2 fL (80.0-98.0); Mean Platelet Volume 11.6 fL (9.4-12.4); Monocytes Absolute Auto 0.4 X10*3/uL (0.1-1.2); Monocytes Percent Auto 13.6 % (2-11); Neutrophils Absolute Auto 1.4 x10*3/uL (2.0-8.3); Neutrophils Percent Auto 48.5 % (45-73)
[2021-06-29 12:46] LABS: White Blood Count 2.8 X10*3/uL (4.8-10.8)
[2021-06-29 12:48] LABS: Platelet Count 44 X10*3/uL (160-400)
[2021-06-29 13:17] LABS: Alanine Aminotransferase 11 U/L (0-40); Albumin Level 3.5 g/dL (3.5-5.0); Alkaline Phosphatase 71 U/L (39-117); Anion Gap 13 (12-20); Aspartate Amino Transferase 13 U/L (5-37); Bilirubin Total 0.7 mg/dL (0.0-1.0); Blood Urea Nitrogen 10 mg/dL (9-16); Calcium 8.2 mg/dL (8.4-10.2); Carbon Dioxide 21 mmol/L (22-29); Chloride 111 mmol/L (96-108); Estimated Glomerular Filt Rate > 60; Glucose Random 146 mg/dL (60-115); Potassium 4.8 mmol/L (3.3-5.1); Sodium 140 mmol/L (135-145); Total Protein 5.5 g/dL (6.5-8.0)
[2021-07-01 12:56] LABS: Prot Elec - Albumin 3.3 g/dL (3.8-4.8); Prot Elec - Alpha1 0.3 g/dL (0.2-0.3); Prot Elec - Alpha2 0.7 g/dL (0.5-0.9); Prot Elec - Beta 1 0.3 g/dL (0.4-0.6); Prot Elec - Beta 2 0.2 g/dL (0.2-0.5); Prot Elec - Gamma 0.6 g/dL (0.8-1.7); Prot Elec - Total Protein 5.5 g/dL (6.1-8.1)
[2021-07-01 15:42] LABS: Kappa Light Chain, Free Serum 2251.1 mg/L (3.3-19.4); Kappa/Lambda Lt Ch Free Ratio 135.61 (0.26-1.65); Lambda Light Chain, Free Serum 16.6 mg/L (5.7-26.3)
[2021-07-04 14:11] LABS: IgA 126 mg/dL (70-320); IgG 676 mg/dL (600-1540); IgM 20 mg/dL (50-300)
[2021-07-06 14:41] LABS: Kappa, Serum 210 mg/dL (176-443); Kappa/Lambda Ratio, Serum 3.44 (1.29-2.55); Lambda, Serum 61 mg/dL (91-240)
== END 2021-06-29 11:26 | disposition home or self-care (01) ==
LOC: HO.LAB 11:25
PROVIDERS: PCP Internal Medicine Medical Oncology; Visit Provider Internal Medicine Medical Oncology
DX: I48.0 Paroxysmal atrial fibrillation (principal); C90.00 Multiple myeloma not having achieved remission; I10 Essential (primary) hypertension; D69.6 Thrombocytopenia, unspecified; Z51.81 Encounter for therapeutic drug level monitoring; Z79.01 Long term (current) use of anticoagulants
CPT/HCPCS: 36415; 80053; 82784; 83521; 83883; 84165; 85025; 85610; 86334; 99211

== ENCOUNTER 2021-07-07 21:56 | Emergency (ER) | payer MEDICARE, SELFPAY ==
--- NOTE | ~2021-07-07 | CT_ITS ---
EXAMINATION CT CHEST, ABDOMEN AND PELVIS WITH CONTRAST CLINICAL INFORMATION: Cough and shortness of breath. Tachypnea. Abdominal discomfort. Melena. History of multiple myeloma. COMPARISON: PET/CT dated 05/18/2021. TECHNIQUE: Multidetector volumetric CT imaging of the chest, abdomen and pelvis was obtained after the administration of 85 mL of intravenous Omnipaque 350 without immediate adverse reactions. Coronal and sagittal reformats were reviewed. This CT examination was performed using dose optimization techniques as appropriate, variously including the following: *Automated exposure control *Adjustment of mA and/or kV according to patient size (this includes techniques or standardized protocols for targeted exams where dose is matched to indication/reason for exam; i.e. extremities or head) *Use of iterative reconstruction technique DLP: 1429 mGy-cm. FINDINGS: CHEST LUNGS/PLEURA: Mild emphysema. Diffuse mild thickening without bronchiectasis. Diffuse mild subpleural angulation. No focal consolidation. No pneumothorax. There is no pleural effusion. No pleural mass or thickening. MEDIASTINUM/DARRON: Mild cardiomegaly. No mediastinal or hilar lymphadenopathy. CHEST WALL/AXILLA: Unremarkable. ABDOMEN/PELVIS HEPATOBILIARY: Liver normal in size, contour and morphology. No suspicious lesions. No intra or extrahepatic biliary dilation. Gallbladder unremarkable. PANCREAS: Unremarkable. SPLEEN: Unremarkable. ADRENAL GLANDS: Unremarkable. KIDNEYS, URETERS AND BLADDER: Kidneys normal in size, axis and morphology demonstrating symmetric enhancement. No hydronephrosis. Multiple bilateral simple renal cortical and parapelvic cysts are present. These are benign. No further follow-up. There is a punctate nonobstructive calculus in the upper pole right kidney. Ureters normal in course and caliber. Bladder grossly unremarkable.. GASTROINTESTINAL TRACT: No bowel related abnormalities. PELVIC VISCERA: Prostate is enlarged. LYMPH NODES: No lymphadenopathy. PERITONEUM/BODY WALL: Unremarkable. 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 Patent venous structures. OSSEOUS STRUCTURES Severe diffuse osseous demineralization. There is an acute transversely oriented fracture through the anteroinferior aspect of the L5 vertebral body, with anterior splaying of the fracture fragments up to 7 mm. No extension into the posterior elements. No additional acute fractures are identified. Healed right-sided rib fractures. Chronic mixed lytic and sclerotic change within the L1 vertebral body. Vertebroplasty is present at L1 and L3. Bridging osteophytes/syndesmophytes present throughout the thoracic spine. Bulky bridging osteophytes present throughout the lumbar spine. CT/CT abdomen pelvis w con IMPRESSION: * Acute transversely oriented fracture through the anterior aspect of the inferior endplate of L5 with anterior splaying of the fracture fragments up to 7 mm. No involvement of the posterior elements. * No additional acute fractures are identified. * Severe diffuse osseous demineralization. * Mild emphysema and likely chronic bronchitis.
--- NOTE | ~2021-07-07 | CT_ITS ---
EXAMINATION: CT HEAD WITHOUT CONTRAST CLINICAL INFORMATION: Syncope. Fall on Coumadin. COMPARISON: 11/02/2020 TECHNIQUE: Contiguous axial imaging was performed from the skull base to vertex without intravenous administration of contrast. This CT examination was performed using dose optimization techniques as appropriate, variously including the following: *Automated exposure control *Adjustment of mA and/or kV according to patient size (this includes techniques or standardized protocols for targeted exams where dose is matched to indication/reason for exam; i.e. extremities or head) *Use of iterative reconstruction technique DLP: 889 mGy-cm FINDINGS: There is no evidence of acute intracranial hemorrhage or territorial infarction. No abnormal mass effect or midline shift is seen. Meng to white matter differentiation is well preserved. No extra-axial fluid collections are identified. Generalized brain parenchymal volume loss. No evidence of superimposed hydrocephalus. Mild patchy subcortical and periventricular white matter with changes statistically related to chronic white matter small vessel ischemic disease. Multiple lucent lesions scattered throughout the calvarium in keeping with known multiple myeloma. Mild mucosal thickening throughout the paranasal sinuses. CT/CT head/brain wo con IMPRESSION: No acute intracranial pathology.
[2021-07-07 21:58] VITALS: BP 133/72; BP 149/85; PULSE 91; PULSE 92; RESP 18; TEMP 37.1; O2SAT 98; BMI 22.4
--- NOTE | 2021-07-07 22:07 | ECG_ITS ---
Test Reason : weakness Blood Pressure : / mmHG Vent. Rate : 081 BPM Atrial Rate : 081 BPM P-R Int : 132 ms QRS Dur : 092 ms QT Int : 396 ms P-R-T Axes : 027 -02 026 degrees QTc Int : 460 ms Sinus rhythm with frequent Premature ventricular complexes and Premature atrial complexes Abnormal ECG When compared with ECG of 02-NOV-2020 18:49, Premature ventricular complexes are now Present Premature atrial complexes are now Present Minimal criteria for Septal infarct are no longer Present Referred By: Anila José Electronically Signed By:SILVA OROPEZA
--- NOTE | 2021-07-07 22:19 | ED_ITS ---
HPI - General Adult General Chief complaint: Epistaxis Stated complaint: nose bleed Time Seen by Provider: 07/07/21 22:07 Source: patient and other Mode of arrival: EMS History of Present Illness HPI narrative: 76-year-old male with history diabetes, hypertension, paroxysmal atrial fibrillation on Coumadin as well as multiple myeloma currently receiving 3 medications for this and has been stable until the past 3 days. Majority of this history was provided by Dr. Ellis's, patient's oncologist. Dr. Ellis reports that for the past 3 days patient has had increasing lower back pain as well as weakness as reported to him by the and then this evening has had an episode of incontinence as well as melena. On asking the patient he states that he has had increasing shortness of breath but denies any chest pain/palpitations and states that he did have a large dark bowel movement earlier this evening. In addition, he acknowledges that he has had increasing weakness and that his back has continued to bother him. Related Data Home Medications Medication Instructions Recorded Confirmed metformin 500 mg tablet 500 mg PO BID 04/16/20 06/29/21 omeprazole 20 mg capsule,delayed 20 mg PO DAILY 04/16/20 06/29/21 release primidone 50 mg tablet 100 mg PO DAILY 04/16/20 06/29/21 tamsulosin 0.4 mg capsule 0.4 mg PO BEDTIME 04/16/20 06/29/21 zoledronic acid 4 mg/5 mL 4 mg IV Q2M 04/16/20 06/29/21 intravenous solution latanoprost 0.005 % eye drops 1 drp OPHTHALMIC-RIGHT BEDTIME 05/07/20 06/29/21 acetaminophen 325 mg tablet 650 mg PO BEDTIME 11/02/20 06/29/21 brimonidine 0.2 % eye drops 1 drp OPHTHALMIC-LEFT BID 11/02/20 06/29/21 warfarin 5 mg tablet 5 mg PO MO 11/02/20 06/29/21 donepezil 10 mg tablet 10 mg PO DAILY 01/07/21 06/29/21 lenalidomide 25 mg capsule 25 mg PO DIRECTED 01/07/21 06/29/21 dexamethasone 2 mg tablet mg PO 01/22/21 06/29/21 acetaminophen 300 mg-codeine 15 mg tab PO 03/02/21 06/29/21 tablet oxycodone 5 mg tablet 5 mg PO QID PRN 03/16/21 06/29/21 simethicone 125 mg capsule (Gas 250 mg PO BID 04/22/21 06/29/21 Relief (simethicone)) metoprolol succinate 25 mg 25 mg PO DAILY 05/28/21 06/29/21 tablet,extended release 24 hr mirtazapine 15 mg tablet 15 mg PO BEDTIME 05/28/21 06/29/21 acetaminophen 500 mg tablet 500 mg PO Q6H PRN 06/29/21 06/29/21 bortezomib 3.5 mg injection powder mg IV 06/29/21 06/29/21 for solution (Velcade) megestrol 400 mg/10 mL (40 mg/mL) mg PO 06/29/21 06/29/21 oral suspension Previous Rx's Medication Instructions Recorded diltiazem HCl 180 mg capsule,24 180 mg PO QAM 90 Days #90 cap 02/01/21 hr,extended release Allergies Allergy/AdvReac Type Severity Reaction Status Date / Time No Known Allergies Allergy Verified 06/29/21 11:38 [No Known Allergies*] Review of Systems Review of Systems: Pertinent positives and negatives as stated in HPI 10 point review of systems is otherwise negative. [facility] Past Medical History Source: nursing notes reviewed Medical History (Updated 07/08/21 @ 00:35 by Anila José MD) BPH (benign prostatic hyperplasia) Diabetes Diabetes mellitus DVT (deep venous thrombosis) Glaucoma HTN (hypertension) Multiple myeloma Paroxysmal atrial fibrillation Urinary retention due to benign prostatic hyperplasia Surgical History H/O cataract removal with insertion of prosthetic lens Social History Social History Household Members: Spouse Housing: House Do you presently have visiting nurse or other home services: No Alcohol intake: current Alcohol intake frequency: holidays/special occasions only Patient Tobacco Use Status: Former Tobacco user Advance Directives: No service: No Current occupational status: retired Physical Exam ED Vital Signs: Vital Signs - 24 hr 07/07/21 21:58 Temperature 98.8 F Pulse Rate 91 Respiratory Rate 18 Blood Pressure 149/85 H Pulse Oximetry 98 BMI result Body Mass Index 22.4 VITAL SIGNS: Reviewed. GENERAL: Well developed, well nourished, in no acute distress. HEAD: Normocephalic/atraumatic EYES: PERRLA, EOMI EARS: Ext canals without abnormality NOSE: Nares patent bilateral, mild epistaxis that is currently controlled in the left nare OROPHARYNX: no oral lesions noted, posterior pharynx clear NECK: Supple, no adenopathy LUNGS: Bibasilar decrease in breath sounds, tachypnea, and cough is present, <SpO2-98>; CHEST WALL: Noted for an, palpable mass to the anterior left chest wall that is mildly tender on palpation CARDIOVASCULAR: Regular rate and rhythm without noted murmurs, no JVD or lower extremity edema. ABDOMEN: Soft, non-tender, non-distended with bowel sounds. DREW: No tags/fissures, soft brown initial stool with questionable blood present on finger, good rectal tone; trace skin breakdown at coccyx BACK: No step-offs, but tenderness on palpation at approximately L4/L5, eschar noted at right infra scapular MUSCULOSKELETAL: No tenderness, deformities, or effusions noted on gross inspection. EXTREMITIES: No cyanosis, clubbing or edema. SKIN: Inspection of the skin reveals no rashes, ulcerations, jaundice, pallor, or petechiae. NEUROLOGIC: Alert and Strength and sensation to light touch were grossly intact x 4. Course Course Course Narrative: 76-year-old male with history and clinical presentation concerning for possible multiple myeloma progression. On review of investigations patient noted to have decreased platelet count when compared to baseline, INR is noted to be elevated to 7.4, and lactic acid is noted to be 5.9 but at this time no suspicion for infectious etiology. Inpatient hospitalist is aware of all results and has accepted admission. Anticoagulation will be held at this time and patient's H/H is noted to be stable baseline. Obviously, the noted epistaxis and reports of melena are likely multifactorial given the INR as well as platelet levels. Guaiac positive, hemodynamic stable. Medical Decision Making Lab Data Result diagrams: 07/07/21 22:49 07/07/21 22:47 Labs: Lab Results 07/07/21 07/07/21 07/07/21 Range/Units 22:47 22:47 22:48 WBC (4.8-10.8) X10*3/uL RBC (4.60-5.80) X10*6/uL Hgb (14.0-18.0) g/dl Hct (42.0-52.0) % MCV (80.0-98.0) fL MCH (27.0-33.0) pg MCHC (31.0-36.0) g/dl RDW (11.0-16.0) % Plt Count (160-400) X10*3/uL MPV (9.4-12.4) fL Immature Gran % (Auto) Neut % (Auto) Lymph % (Auto) Lassen % (Auto) Eos % (Auto) Baso % (Auto) Lymph # (Auto) Lassen # (Auto) Eos # (Auto) Baso # (Auto) Abs Immat Gran (auto) Absolute Neuts (auto) Absolute Nucleated RBC (0.0-0.012) X10*3/uL Nucleated RBC % (auto) (0.0-0.2) /100WBC Neutrophils % (Manual) (45-73) % Band Neutrophils % (3-5) % Lymphocytes % (Manual) (20-40) % Atypical Lymphs % (Man) (0-6) % Monocytes % (Manual) (2-11) % Abs Neuts (Manual) (2.0-8.3) X10*3/uL Lymphocytes # (Manual) (1.2-4.9) X10*3/uL Atyp Lymphs # (Manual) x10*3/uL Monocytes # (Manual) (0.1-1.2) X10*3/uL Dohle Bodies Platelet Estimate (NORMAL) Plt Morphology Comment RBC Morphology Macrocytosis /OIF Ovalocytes /OIF [place] Cells /OIF Schistocytes /OIF PT (9.9-13.0) SEC INR (0.9-1.1) Sodium 135 (135-145) mmol/L Potassium 4.2 (3.3-5.1) mmol/L Chloride 110 H (96-108) mmol/L Carbon Dioxide 12 L (22-29) mmol/L Anion Gap 17 (12-20) BUN 20 H D (9-16) mg/dL Creatinine 1.35 (0.5-1.4) mg/dL Estim Creat Clear Calc 43.9 Estimated GFR 51 Random Glucose 228 H D (60-115) mg/dL Lactic Acid (0.5-2.0) mmol/L Calcium 8.1 L (8.4-10.2) mg/dL Magnesium 2.2 (1.6-2.6) mg/dL Total Bilirubin 0.6 (0.0-1.0) mg/dL AST 28 D (5-37) U/L ALT 17 (0-40) U/L Alkaline Phosphatase 70 (39-117) U/L Lactate Dehydrogenase 575 H (118-273) U/L Troponin I High Sens 12.6 (<3.5-35.0) ng/L Total Protein 5.8 L (6.5-8.0) g/dL Albumin 3.6 (3.5-5.0) g/dL Blood Type AB Positive Antibody Screen NEGATIVE 07/07/21 07/07/21 07/07/21 Range/Units 22:49 22:50 22:51 WBC 1.4 L (4.8-10.8) X10*3/uL RBC 2.97 L (4.60-5.80) X10*6/uL Hgb 10.5 L (14.0-18.0) g/dl Hct 30.7 L (42.0-52.0) % MCV 103.4 H (80.0-98.0) fL MCH 35.4 H (27.0-33.0) pg MCHC 34.2 (31.0-36.0) g/dl RDW 15.1 (11.0-16.0) % Plt Count 20 L* D (160-400) X10*3/uL MPV 12.8 H (9.4-12.4) fL Immature Gran % (Auto) Cancelled Neut % (Auto) Cancelled Lymph % (Auto) Cancelled Lassen % (Auto) Cancelled Eos % (Auto) Cancelled Baso % (Auto) Cancelled Lymph # (Auto) Cancelled Lassen # (Auto) Cancelled Eos # (Auto) Cancelled Baso # (Auto) Cancelled Abs Immat Gran (auto) Cancelled Absolute Neuts (auto) Cancelled Absolute Nucleated RBC 0.000 (0.0-0.012) X10*3/uL Nucleated RBC % (auto) 0.0 (0.0-0.2) /100WBC Neutrophils % (Manual) 73 (45-73) % Band Neutrophils % 0 L (3-5) % Lymphocytes % (Manual) 13 L (20-40) % Atypical Lymphs % (Man) 9 H (0-6) % Monocytes % (Manual) 5 (2-11) % Abs Neuts (Manual) 1.0 L (2.0-8.3) X10*3/uL Lymphocytes # (Manual) 0.2 L (1.2-4.9) X10*3/uL Atyp Lymphs # (Manual) 0.1 x10*3/uL Monocytes # (Manual) 0.1 (0.1-1.2) X10*3/uL Dohle Bodies PRESENT Platelet Estimate DECREASED (NORMAL) Plt Morphology Comment NORMAL RBC Morphology NOTED Macrocytosis 2+ (15-30) /OIF Ovalocytes 1+ (5-14) /OIF [place] Cells 3+ (>5) /OIF Schistocytes 1+ (0-2) /OIF PT 88.1 H (9.9-13.0) SEC INR 7.4 H* (0.9-1.1) Sodium (135-145) mmol/L Potassium (3.3-5.1) mmol/L Chloride (96-108) mmol/L Carbon Dioxide (22-29) mmol/L Anion Gap (12-20) BUN (9-16) mg/dL Creatinine (0.5-1.4) mg/dL Estim Creat Clear Calc Estimated GFR Random Glucose (60-115) mg/dL Lactic Acid 5.9 H* (0.5-2.0) mmol/L Calcium (8.4-10.2) mg/dL Magnesium (1.6-2.6) mg/dL Total Bilirubin (0.0-1.0) mg/dL AST (5-37) U/L ALT (0-40) U/L Alkaline Phosphatase (39-117) U/L Lactate Dehydrogenase (118-273) U/L Troponin I High Sens (<3.5-35.0) ng/L Total Protein (6.5-8.0) g/dL Albumin (3.5-5.0) g/dL Blood Type Antibody Screen ECG Data Attestation: I personally reviewed and interpreted this ECG as follows: Prior ECG tracings: available for review Interpretation: Sinus rhythm with PVCs and PACs, HR-81, no STEMI, NM/QRS/QTC are within normal limits. Critical Care Time Critical Care Time Critical Care Time: Yes Total Critical Care Time: 30 Attestation: I personally attest to this time spent taking care of the patient. Discharge Plan Discharge Clinical Impression: Paroxysmal atrial fibrillation, Diabetes, Epistaxis, GI bleed, Multiple myeloma, Thrombocytopenia, Hypercoagulable state Patient Disposition: Admitted As Inpatient
[2021-07-07 22:57] LABS: Hematocrit 30.7 % (42.0-52.0); Hemoglobin 10.5 g/dl (14.0-18.0); Mean Corpuscular HGB Conc 34.2 g/dl (31.0-36.0); Mean Corpuscular Hemoglobin 35.4 pg (27.0-33.0); Mean Corpuscular Volume 103.4 fL (80.0-98.0); Mean Platelet Volume 12.8 fL (9.4-12.4); Red Blood Count 2.97 X10*6/uL (4.60-5.80); Red Cell Distribution Width 15.1 % (11.0-16.0)
--- NOTE | 2021-07-07 23:08 | P.HPHOSP_ITS ---
History of Present Illness Date of Service: 07/07/21 Chief Complaint: Syncope 76-year-old male with a past medical history of hypertension, hyperlipidemia, diabetes, history of AFib on Coumadin, history of DVT, glaucoma, multiple myeloma, history of urinary retention; presented to the hospital today with a chief complaint of syncope. Patient reported that he went to bathroom has a had a urinary accident; and he was in the bathtub, his cleaning subsequently he felt lightheaded and dizzy and fainted; loss consciousness briefly. Denies any seizure-like activity. Denies any falls or trauma. Subsequently his family members help him to go back to the bed. Followed by his suggesting go to the ER for further evaluation. Patient mentioned that he had black stool today. Denies any chest pain or palpitations. Denies any abdominal pain. Denies any nausea vomiting or diarrhea. Denies any urinary symptoms. Review of all other systems is negative except mentioned above ER course: Per ER team patient exam was nonfocal, has good rectal tone; stool guaiac was sent; EKG was nonischemic; admitted to the hospital for further PMFSH Medical History (Updated 07/08/21 @ 00:35 by Anila José MD) BPH (benign prostatic hyperplasia) Diabetes Diabetes mellitus DVT (deep venous thrombosis) Glaucoma HTN (hypertension) Multiple myeloma Paroxysmal atrial fibrillation Urinary retention due to benign prostatic hyperplasia Pertinent family history: Parents Surgical History H/O cataract removal with insertion of prosthetic lens Social History Household Members: Spouse Housing: House Do you presently have visiting nurse or other home services: No Alcohol intake: current Alcohol intake frequency: holidays/special occasions only Patient Tobacco Use Status: Former Tobacco user Advance Directives: No service: No Current occupational status: retired Meds Allergies Allergy/AdvReac Type Severity Reaction Status Date / Time No Known Allergies Allergy Verified 06/29/21 11:38 [No Known Allergies*] Home Medications Medication Instructions Recorded Confirmed Last Taken Type metformin 500 mg tablet 500 mg PO BID 04/16/20 07/08/21 11/02/20 History omeprazole 20 mg capsule,delayed 20 mg PO DAILY 04/16/20 07/08/21 11/02/20 History release primidone 50 mg tablet 100 mg PO DAILY 04/16/20 07/08/21 11/02/20 History tamsulosin 0.4 mg capsule 0.4 mg PO BEDTIME 04/16/20 07/08/21 11/01/20 History zoledronic acid 4 mg/5 mL 4 mg IV Q2M 04/16/20 06/29/21 Unknown History intravenous solution latanoprost 0.005 % eye drops 1 drp OPHTHALMIC-RIGHT BEDTIME 05/07/20 07/08/21 11/01/20 History acetaminophen 325 mg tablet 650 mg PO BEDTIME 11/02/20 07/08/21 11/01/20 History brimonidine 0.2 % eye drops 1 drp OPHTHALMIC-LEFT BID 11/02/20 07/08/21 11/02/20 History warfarin 5 mg tablet 5 mg PO MO 11/02/20 07/08/21 11/02/20 History donepezil 10 mg tablet 10 mg PO DAILY 01/07/21 06/29/21 Unknown History lenalidomide 25 mg capsule 25 mg PO DIRECTED 01/07/21 06/29/21 Unknown History dexamethasone 2 mg tablet mg PO 01/22/21 06/29/21 Unknown History acetaminophen 300 mg-codeine 15 mg tab PO Q6H PRN 03/02/21 06/29/21 Unknown History tablet oxycodone 5 mg tablet 5 mg PO QID PRN 03/16/21 07/08/21 Unknown History metoprolol succinate 25 mg 25 mg PO DAILY 05/28/21 07/08/21 Unknown History tablet,extended release 24 hr mirtazapine 15 mg tablet 15 mg PO BEDTIME 05/28/21 07/08/21 Unknown History acetaminophen 500 mg tablet 500 mg PO Q6H PRN 06/29/21 06/29/21 Unknown History bortezomib 3.5 mg injection powder mg IV 06/29/21 06/29/21 Unknown History for solution (Velcade) megestrol 400 mg/10 mL (40 mg/mL) 400 mg PO 06/29/21 06/29/21 Unknown History oral suspension Physical Exam Vital Signs and Narrative: Vital Signs: Last Vital Signs Temp 98.8 F 07/07/21 21:58 Pulse 91 07/07/21 21:58 Resp 18 07/07/21 21:58 BP 149/85 H 07/07/21 21:58 Pulse Ox 98 07/07/21 21:58 BMI result Body Mass Index 22.4 Gen: Appears be in no acute distress HEENT: NCAT, Moist mucosa. Pulmonary: Vesicular breath sounds, fair air entry CVS: Normal S1-S2 Abdomen: BS+, Soft, Nontender Extremities: Warm well perfused Neuro: Alert and awake. Grossly nonfocal Results Labs CBC and Chem 7: 07/08/21 05:01 07/08/21 05:01 Assessment and Plan (1) HTN (hypertension): Status: Acute (2) Paroxysmal atrial fibrillation: Status: Acute (3) Syncope: Status: Acute (4) GI bleed: Status: Acute (5) Diabetes: Status: Acute Plan 76-year-old male with a past medical history of hypertension, hyperlipidemia, diabetes, history of AFib on Coumadin, history of DVT, glaucoma, multiple myeloma, history of urinary retention; presented to the hospital today with a chief complaint of syncope. GI bleed: Patient reported black stool. Hemoglobin currently stable. Serial H&H IV PPI Gastroenterology consult Severe thrombocytopenia: Patient has chronic thrombocytopenia with platelet counts around 40s. On presentation platelets noted to be 20. Patient being ordered 2 units of platelets.( platelets to come from [facility] [place]) CT head showed no acute findings. Oncology consult. Supratherapeutic INR: Vit K; Hold Coumadin. Syncope: Likely vasovagal as episode happened was bowel movement. EKG showed no acute changes. Telemetry Cycle cardiac enzymes Orthostatic vitals Echocardiogram PT/OT eventually Back pain: Patient reports pain in his coccyx. Denies any low back pain or upper back pain. Denies any numbness tingling or focal weakness. Exam nonfocal. Rectal tone within normal limits per ER team. Acute L5 vertebral endplate Fracture: CT scan showed ?Acute transversely oriented fracture through the anterior aspect of the inferior endplate of L5 with anterior splaying of the fracture fragments up to 7 mm.?. No focal deficits noted. Pain control. good Rectal tone per ER physician. Neurosurgery at [facility] consulted. Lactic acidosis: Improving with IV fluids. Likely from dehydration. CT chest- no PNA. UA pending. History of diabetes: Insulin sliding scale History of AFib: Patient on Coumadin-> Coumadin on hold History of multiple myeloma: Patient is follows with Dr. Ellis. History of glaucoma: Continue home eye drops History of hypertension: Continue home metoprolol History of depression: Continue home mirtazapine History of BPH: Continue home Flomax History of tremor/Parkinson: Continue home primidone; DVT prophylaxis: SCD boots Code status: Full code Quality Stroke Does the patient have a stroke diagnosis?: No VTE Prior VTE?: No VTE Risk Level:: Medical - moderate - high VTE Device Contraindication: N/A - Device Ordered VTE Drug Contraindication: Treatment Not Indicated
[2021-07-07 23:09] LABS: Prothrombin Time 88.1 SEC (9.9-13.0)
[2021-07-07 23:10] LABS: INTERNATIONAL NORM RATIO 7.4 (0.9-1.1)
[2021-07-07 23:29] LABS: WBC ABN SCTR FOR CBC 1; White Blood Count 1.4 X10*3/uL (4.8-10.8)
[2021-07-07 23:30] LABS: Platelet Count 20 X10*3/uL (160-400)
[2021-07-07 23:33] LABS: Alanine Aminotransferase 17 U/L (0-40); Albumin Level 3.6 g/dL (3.5-5.0); Alkaline Phosphatase 70 U/L (39-117); Anion Gap 17 (12-20); Aspartate Amino Transferase 28 U/L (5-37); Bilirubin Total 0.6 mg/dL (0.0-1.0); Blood Urea Nitrogen 20 mg/dL (9-16); Calcium 8.1 mg/dL (8.4-10.2); Carbon Dioxide 12 mmol/L (22-29); Chloride 110 mmol/L (96-108); Creatinine Clr Calc Pharmacy 43.9; Estimated Glomerular Filt Rate 51; Glucose Random 228 mg/dL (60-115); Magnesium 2.2 mg/dL (1.6-2.6); Potassium 4.2 mmol/L (3.3-5.1); Sodium 135 mmol/L (135-145); Total Protein 5.8 g/dL (6.5-8.0)
[2021-07-07 23:33] LABS: Lactic Acid 5.9 mmol/L (0.5-2.0)
[2021-07-07 23:37] LABS: Troponin-I High Sensitivity 12.6 ng/L (<3.5-35.0)
[2021-07-07 23:43] VITALS: BP 125/65; PULSE 83
[2021-07-07 23:46] VITALS: BP 135/63; PULSE 84
[2021-07-07 23:48] VITALS: BP 127/55; PULSE 88
[2021-07-07 23:52] LABS: Lactate Dehydrogenase 575 U/L (118-273)
[2021-07-08 00:08] LABS: Atypical Lymph Absolute Manual 0.1 x10*3/uL; Atypical Lymphs Percent Manual 9 % (0-6); Band Neutrophils Percent 0 % (3-5); Lymphocytes Absolute Manual 0.2 X10*3/uL (1.2-4.9); Lymphocytes Percent Manual 13 % (20-40); Monocytes Absolute Manual 0.1 X10*3/uL (0.1-1.2); Monocytes Percent Manual 5 % (2-11); Neutrophils Percent Manual 73 % (45-73)
[2021-07-08 00:10] LABS: OBS Int Ctl Valid YES; OBS1 POSITIVE (NEGATIVE)
[2021-07-08 00:27] LABS: Macrocytosis 2+ (15-30) /OIF; Platelet Estimate DECREASED (NORMAL); Platelet Morphology Comment NORMAL; RBC Morphology NOTED
[2021-07-08 00:28] LABS: Burr Cells 3+ (>5) /OIF; Schistocytes 1+ (0-2) /OIF
[2021-07-08 00:28] LABS: COVID-19 Test Negative (Negative)
[2021-07-08 00:29] LABS: Ovalocytes 1+ (5-14) /OIF
[2021-07-08 00:30] LABS: Dohle Bodies PRESENT
--- NOTE | 2021-07-08 00:57 | PC.NURSE ---
Pt has had multiple staff attempt to draw labs and start IV access. IV access obtained, but IV not working. Another nurse to bedside at this time attempting to place IV with u/s
[2021-07-08 01:20] LABS: Reflex Lactate? Lactic Acid Added
[2021-07-08] MEDS: 0.9 % Sodium Chloride 2,000 ML 999 ML IV (01:24)
[2021-07-08] MEDS: iohexoL 350 MG/ML 100 ML INFUS..BTL 85 ML IV (02:04)
[2021-07-08 03:50] LABS: Reflex Lactate? 2 Y
[2021-07-08] MEDS: Dextrose 5 % and 0.45 % NaCl 1,000 ML 50 ML IVCONT (04:59)
[2021-07-08 05:08] LABS: Hematocrit 24.4 % (42.0-52.0); Hemoglobin 8.2 g/dl (14.0-18.0); Mean Corpuscular HGB Conc 33.6 g/dl (31.0-36.0); Mean Corpuscular Hemoglobin 34.6 pg (27.0-33.0); Red Blood Count 2.37 X10*6/uL (4.60-5.80); Red Cell Distribution Width 15.4 % (11.0-16.0)
[2021-07-08 05:10] LABS: White Blood Count 1.2 X10*3/uL (4.8-10.8)
[2021-07-08 05:17] LABS: Platelet Count 16 X10*3/uL (160-400); ~Lactic Acid-LAB USE ONLY 1.6 mmol/L (0.5-2.0)
[2021-07-08 05:38] LABS: Anion Gap 11 (12-20); Blood Urea Nitrogen 21 mg/dL (9-16); Calcium 7.5 mg/dL (8.4-10.2); Carbon Dioxide 17 mmol/L (22-29); Chloride 116 mmol/L (96-108); Creatinine Clr Calc Pharmacy 50.3; Estimated Glomerular Filt Rate 60; Glucose Random 143 mg/dL (60-115); Potassium 4.4 mmol/L (3.3-5.1); Sodium 140 mmol/L (135-145)
--- NOTE | 2021-07-08 05:40 | PC.NURSE ---
Per lab, platelets coming from another location and will likely take an hour or two to arrive.
[2021-07-08] MEDS: Pantoprazole Sodium 40 MG/10 ML VIAL IVPUSH (05:48)
[2021-07-08] MEDS: Phytonadione (Vit K1) 5 MG in 0.9 % Sodium Chloride 50 ML 50.5 MG IV (05:48)
[2021-07-08 06:16] LABS: Atypical Lymphs Percent Manual 4 % (0-6); Band Neutrophils Percent 0 % (3-5); Lymphocytes Absolute Manual 0.3 X10*3/uL (1.2-4.9); Lymphocytes Percent Manual 23 % (20-40); Macrocytosis 2+ (15-30) /OIF; Monocytes Absolute Manual 0.2 X10*3/uL (0.1-1.2); Monocytes Percent Manual 13 % (2-11); Neutrophils Absolute Manual 0.7 X10*3/uL (2.0-8.3); Neutrophils Percent Manual 60 % (45-73); Platelet Estimate DECREASED (NORMAL); RBC Morphology NOTED
[2021-07-08 06:17] VITALS: BP 127/53; PULSE 75; RESP 24; TEMP 36.6; O2SAT 98
[2021-07-08 06:17] LABS: Platelet Morphology Comment NORMAL
--- NOTE | 2021-07-08 06:17 | PC.NURSE ---
Vit K admin per JUN. Pt offering no complaints at this time, resp reg and even. NAD. Resting quietly on the stretcher.
[2021-07-08 06:18] LABS: Burr Cells 3+ (>5) /OIF; Dohle Bodies PRESENT; Ovalocytes 1+ (5-14) /OIF; Schistocytes 1+ (0-2) /OIF
[2021-07-08 06:31] LABS: Appearance Urine CLEAR; Color Urine YELLOW; Glucose Urine UA NEG (NEG); Leukocyte Esterase Urine NEG (NEG); Nitrite Urine NEG (NEG); Specific Gravity - Urine 1.015 (1.005-1.025); UACC Culture Trigger NO; Urine Blood TRACE (NEG); Urine Ketones 5 MG/DL (NEG); Urine Protein 1+ MG/DL (NEG-TRACE)
[2021-07-08 06:46] LABS: Mucus Urine 1+ /LPF; RBC Urine 0-2 /HPF (0); Squamous Epithelial Cell Urine TRACE /LPF; WBC Urine 0-2 /HPF (0-4)
[2021-07-08 06:48] LABS: Granular Casts Urine 0-2 /LPF
--- NOTE | 2021-07-08 08:21 | MHC.CM.PN ---
Patient was transferrred to [facility] before being seen by case management.
== END 2021-07-08 08:07 | disposition short-term general hospital (02) ==
LOC: HO.ED 23:28 → HO.EDOVER 07-08 00:35
PROVIDERS: Emergency Provider Student in an Organized Health Care Education/Training Program; PCP Internal Medicine Medical Oncology; Visit Provider Hospitalist
DX: I48.0 Paroxysmal atrial fibrillation (principal); E11.9 Type 2 diabetes mellitus without complications; R04.0 Epistaxis; K92.1 Melena; C90.00 Multiple myeloma not having achieved remission; D69.6 Thrombocytopenia, unspecified; D68.59 Other primary thrombophilia; M54.50 Low back pain, unspecified; R53.1 Weakness; R06.82 Tachypnea, not elsewhere classified; R22.2 Localized swelling, mass and lump, trunk; I10 Essential (primary) hypertension; Z86.718 Personal history of other venous thrombosis and embolism; Z79.01 Long term (current) use of anticoagulants; Z87.891 Personal history of nicotine dependence; Z20.822 Contact with and (suspected) exposure to COVID-19
CPT/HCPCS: 36415; 51701; 70450; 71260; 74177; 80048; 80053; 81001; 82272; 83605; 83615; 83735; 84484; 85007; 85025; 85027; 85610; 86850; 86900; 86901; 87635; 93005; 96360; 96361; 99284; 99285; J3430; Q9967

== ENCOUNTER 2021-07-13 08:01 | Outpatient (REF) | payer MEDICARE, SELFPAY ==
[2021-07-13 11:03] LABS: Hematocrit 24.1 % (42.0-52.0); Hemoglobin 8.2 g/dl (14.0-18.0); Red Blood Count 2.41 X10*6/uL (4.60-5.80); Red Cell Distribution Width 14.4 % (11.0-16.0)
[2021-07-13 11:04] LABS: WBC ABN SCTR FOR CBC 1
[2021-07-13 11:07] LABS: INTERNATIONAL NORM RATIO 1.9 (0.9-1.1); Prothrombin Time 21.4 SEC (9.9-13.0)
[2021-07-13 11:08] LABS: Platelet Count 14 X10*3/uL (160-400)
[2021-07-13 11:15] LABS: Alanine Aminotransferase 25 U/L (0-40); Albumin Level 3.1 g/dL (3.5-5.0); Alkaline Phosphatase 62 U/L (39-117); Anion Gap 12 (12-20); Aspartate Amino Transferase 16 U/L (5-37); Bilirubin Total 0.9 mg/dL (0.0-1.0); Blood Urea Nitrogen 14 mg/dL (9-16); Calcium 7.8 mg/dL (8.4-10.2); Carbon Dioxide 21 mmol/L (22-29); Chloride 111 mmol/L (96-108); Estimated Glomerular Filt Rate > 60; Glucose Random 156 mg/dL (60-115); Potassium 4.4 mmol/L (3.3-5.1); Sodium 140 mmol/L (135-145); Total Protein 5.1 g/dL (6.5-8.0)
[2021-07-13 11:34] LABS: Atypical Lymphs Percent Manual 1 % (0-6); Band Neutrophils Percent 5 % (3-5); Eosinophils Absolute Manual 0.1 X10*3/uL (0.0-0.4); Eosinophils Percent Manual 6 % (0-4); Lymphocytes Absolute Manual 0.5 X10*3/uL (1.2-4.9); Lymphocytes Percent Manual 47 % (20-40); Monocytes Absolute Manual 0.2 X10*3/uL (0.1-1.2); Monocytes Percent Manual 20 % (2-11); Neutrophils Absolute Manual 0.3 X10*3/uL (2.0-8.3); Neutrophils Percent Manual 21 % (45-73); Nucleated Red Blood Cells 1 /100WBC (0-0)
[2021-07-13 11:37] LABS: Hypochromasia 1+ (5-14) /OIF; Macrocytosis 1+ (5-14) /OIF; Ovalocytes 1+ (5-14) /OIF; Platelet Estimate DECREASED (NORMAL); RBC Morphology NOTED; Tear Drop Cells 1+ (0-2) /OIF
[2021-07-13 11:38] LABS: Platelet Morphology Comment NORMAL
== END 2021-07-13 08:02 | disposition home or self-care (01) ==
LOC: HO.LHD 08:01
PROVIDERS: Visit Provider Internal Medicine Medical Oncology
DX: Z13.89 Encounter for screening for other disorder (principal)
CPT/HCPCS: 36415; 80053; 85007; 85025; 85027; 85610

== ENCOUNTER 2021-07-13 12:42 | Inpatient (IN) | payer MEDICARE, SELFPAY ==
[2021-07-13] VITALS (9 sets, daily range): BP systolic 122–154; BP diastolic 51–89; PULSE 82–125; RESP 16–28; TEMP 20.2–37.1; O2SAT 94–98; BMI 27.1
--- NOTE | ~2021-07-13 | XR_ITS ---
EXAMINATION: XR CHEST CLINICAL INFORMATION: Weakness COMPARISON: CT chest 07/08/2021. TECHNIQUE: Frontal view of the chest was obtained. FINDINGS: The lungs are expanded without any acute pneumonic process. Increased bilateral interstitial markings are noted with prominent hilar bronchi and peribronchial thickening suggestive of the disease. Heart size and pulmonary vascularity is normal. No gross bony abnormality seen. XR/XR chest 1V IMPRESSION: Findings suspicious for central airway disease. No consolidation or effusion seen.
--- NOTE | 2021-07-13 13:09 | ECG_ITS ---
Test Reason : WEAKNESS Blood Pressure : / mmHG Vent. Rate : 112 BPM Atrial Rate : 112 BPM P-R Int : 124 ms QRS Dur : 090 ms QT Int : 330 ms P-R-T Axes : 047 012 084 degrees QTc Int : 450 ms Sinus tachycardia with occasional Premature ventricular complexes Otherwise normal ECG When compared with ECG of 07-JUL-2021 22:17, Premature atrial complexes are no longer Present Referred By: Yomi Paredes Electronically Signed By:LUIS WILSON MD
--- NOTE | 2021-07-13 13:13 | ED.GENADULT ---
HPI - General Adult General Chief complaint: Recheck/Abnormal Lab/Rx Stated complaint: ABNORMAL LABS PER CALL PCP, H/O GIB PER EMS Time Seen by Provider: 07/13/21 13:08 Source: patient and EMS Mode of arrival: EMS Limitations: no limitations History of Present Illness HPI narrative: 76-year-old male with history of diabetes, hypertension, paroxysmal atrial fibrillation, patient is on Coumadin 5/7.5 mg, patient also been diagnosed with multiple myeloma that he is receiving chemotherapy for by Dr. Ellis patient is bed ridden needs assistance for most of the daily activity, recently patient was transferred to [facility] for L5 compression fracture. Patient is complaining of generalized weakness, had blood workup which showed anemia with declining of hemoglobin level. Patient was sent to the emergency department by Dr. Ellis for further evaluation and blood transfusion and admission to change his chemotherapy. Related Data Home Medications Medication Instructions Recorded Confirmed metformin 500 mg tablet 500 mg PO BID 04/16/20 07/13/21 omeprazole 20 mg capsule,delayed 20 mg PO DAILY 04/16/20 07/13/21 release primidone 50 mg tablet 100 mg PO DAILY 04/16/20 07/13/21 tamsulosin 0.4 mg capsule 0.4 mg PO BEDTIME 04/16/20 07/13/21 zoledronic acid 4 mg/5 mL 4 mg IV [id number] 04/16/20 07/13/21 intravenous solution latanoprost 0.005 % eye drops 1 drp OPHTHALMIC-RIGHT BEDTIME 05/07/20 07/13/21 brimonidine 0.2 % eye drops 1 drp OPHTHALMIC-LEFT BID 11/02/20 07/13/21 warfarin 5 mg tablet 5 mg PO DAILY 11/02/20 07/13/21 donepezil 10 mg tablet 10 mg PO DAILY 01/07/21 07/13/21 lenalidomide 25 mg capsule 25 mg PO DIRECTED 01/07/21 07/13/21 dexamethasone 2 mg tablet 2 mg PO DIRECTED 01/22/21 06/29/21 acetaminophen 300 mg-codeine 15 mg 1 tab PO Q6H PRN 03/02/21 07/13/21 tablet mirtazapine 15 mg tablet 15 mg PO BEDTIME 05/28/21 07/13/21 acetaminophen 500 mg tablet 500 mg PO Q6H PRN 06/29/21 07/13/21 bortezomib 3.5 mg injection powder mg IV 06/29/21 06/29/21 for solution (Velcade) megestrol 400 mg/10 mL (40 mg/mL) 400 mg PO BID 06/29/21 07/13/21 oral suspension metoprolol succinate 50 mg 1 tab PO DAILY 07/13/21 07/13/21 tablet,extended release 24 hr oxycodone 10 mg tablet 1 tab PO Q6H PRN 07/13/21 07/13/21 Previous Rx's Medication Instructions Recorded diltiazem HCl 180 mg capsule,24 180 mg PO QAM 90 Days #90 cap 02/01/21 hr,extended release Allergies Allergy/AdvReac Type Severity Reaction Status Date / Time No Known Allergies Allergy Verified 06/29/21 11:38 [No Known Allergies*] Review of Systems Review of Systems: All other systems are reviewed and are negative Constitutional: Reports as per HPI and Reports no additional constitutional complaints Eyes: Reports as per HPI and Reports no additional eye complaints Reports system reviewed and no additional complaints, except as documented Cardiovascular: Reports as per HPI and Reports no additional cardiovascular complaints Respiratory: Reports as per HPI and Reports no additional respiratory complaints Gastrointestinal: Reports as per HPI and Reports no additional gastrointestinal complaints Genitourinary: Reports no additional female genitourinary complaints Musculoskeletal: Reports no additional musculoskeletal complaints Skin/Breast: Reports system reviewed and no additional complaints, except as docu Psychiatric: Reports no additional psychiatric complaints Endocrine: Reports no additional endocrine complaints Hematologic/Lymphatic: Reports no additional hematologic/lymphatic complaints Allergic/Immunologic: Reports no additional allergic/immunologic complaints Reports system reviewed and no additional complaints, except as documented and Reports Abnormal speech present [facility] Past Medical History Medical History BPH (benign prostatic hyperplasia) Diabetes Diabetes mellitus DVT (deep venous thrombosis) Glaucoma HTN (hypertension) Multiple myeloma Paroxysmal atrial fibrillation Urinary retention due to benign prostatic hyperplasia Surgical History H/O cataract removal with insertion of prosthetic lens Social History Social History Household Members: Spouse Housing: House Do you presently have visiting nurse or other home services: No Alcohol intake: current Alcohol intake frequency: holidays/special occasions only Patient Tobacco Use Status: Former Tobacco user Advance Directives: Yes Advance Directives Information Provided: Yes Advance Directives on File: No service: No Current occupational status: retired Physical Exam ED Vital Signs: Vital Signs - 24 hr 07/13/21 12:52 07/13/21 12:57 Temperature 97.6 F 97.6 F Pulse Rate 125 H 114 H Respiratory Rate 18 16 Blood Pressure 154/64 H 154/64 H Pulse Oximetry 94 98 BMI result Body Mass Index 27.1 Vital signs have been reviewed as appeared to be correct. Blood pressure normal. Heart rate normal. Respiration rate normal. Temperature normal. Oxygen saturation normal. Appearance: Alert. Oriented X3. No acute distress. Head: Normal external exam. Normocephalic. Atraumatic. No Vazquez signs noted. No raccoon eyes noted Eyes: PERRLA. EOMI. Conjunctiva and sclera normal. Eyelids normal. ENT: TM's Normal. Pharynx normal. Uvula midline. Moist mucous membranes. No trismus noted. No drooling noted. No muffled voice noted. Neck: Normal inspection. Neck supple. FROM. No adenopathy. Thyroid Normal. No meningeal signs. No neck mass noted. CVS: Normal heart rate and rhythm. Heart sound normal. No murmurs noted. Pulses normal throughout. Respiratory: No respiratory distress. Painless inspiration. Breath sounds normal. No wheezes/rales/rhonchi noted. Chest nontender. No accessory muscle usage noted or decreased air movement noted. Abdomen: Soft and nontender. Bowel sounds normal in all 4 quadrants. No distention noted. No organomegaly noted. No visible injury noted. Rectal exam: Brown stool Back: No CVA tenderness. Full range of motion noted. Skin: Skin warm and dry. Normal skin color. Normal skin turgor. No rashes/lesions/lacerations noted. Extremities: No lower extremity edema. Extremities exhibit normal range of motion. Extremities nontender. Neuro: Oriented X 3. Cranial nerve exam: II-XII are grossly intact No motor deficit. No sensory deficit. Reflexes normal. Course Course Course Narrative: Assessment and plan. 76-year-old male with history of multiple myeloma, taking Coumadin for history of DVT and paroxysmal atrial fibrillation came in for generalized weakness and low H&H, the case was discussed on consulted with Dr. Ellis who recommended to transfuse the patient 1 unit of RBC, because patient is thrombocytopenic also with brown stool and trace of blood in the stool recommended to transfuse 1 unit of platelets, Dr. Ellis instructed to an admit the patient for starting IV chemotherapy as an inpatient. Medical Decision Making Lab Data Lab results reviewed: Yes I reviewed the patient's lab results. Result diagrams: 07/13/21 14:12 07/13/21 14:12 Labs: Lab Results 07/13/21 07/13/21 07/13/21 Range/Units 14:12 14:12 14:12 WBC 1.0 L (4.8-10.8) X10*3/uL RBC 2.49 L (4.60-5.80) X10*6/uL Hgb 8.7 L (14.0-18.0) g/dl Hct 25.2 L (42.0-52.0) % MCV 101.2 H (80.0-98.0) fL MCH 34.9 H (27.0-33.0) pg MCHC 34.5 (31.0-36.0) g/dl RDW 14.5 (11.0-16.0) % Plt Count 14 L* (160-400) X10*3/uL MPV Not Reportable Immature Gran % (Auto) Cancelled Neut % (Auto) Cancelled Lymph % (Auto) Cancelled [place] % (Auto) Cancelled Eos % (Auto) Cancelled Baso % (Auto) Cancelled Lymph # (Auto) Cancelled [place] # (Auto) Cancelled Eos # (Auto) Cancelled Baso # (Auto) Cancelled Abs Immat Gran (auto) Cancelled Absolute Neuts (auto) Cancelled Absolute Nucleated RBC 0.000 (0.0-0.012) X10*3/uL Nucleated RBC % (auto) 0.0 (0.0-0.2) /100WBC Neutrophils % (Manual) 16 L (45-73) % Band Neutrophils % 2 L (3-5) % Lymphocytes % (Manual) 58 H (20-40) % Monocytes % (Manual) 16 H (2-11) % Eosinophils % (Manual) 8 H (0-4) % Abs Neuts (Manual) 0.2 L (2.0-8.3) X10*3/uL Lymphocytes # (Manual) 0.6 L (1.2-4.9) X10*3/uL Monocytes # (Manual) 0.2 (0.1-1.2) X10*3/uL Eosinophils # (Manual) 0.1 (0.0-0.4) X10*3/uL Platelet Estimate DECREASED (NORMAL) Plt Morphology Comment NORMAL RBC Morphology NOTED Hypochromasia 1+ (5-14) /OIF Macrocytosis 1+ (5-14) /OIF Tear Drop Cells 1+ (0-2) /OIF Ovalocytes 1+ (5-14) /OIF Acanthocytes (Spur) 1+ (0-2) /OIF Sodium 140 (135-145) mmol/L Potassium 4.0 (3.3-5.1) mmol/L Chloride 110 H (96-108) mmol/L Carbon Dioxide 20 L (22-29) mmol/L Anion Gap 14 (12-20) BUN 14 (9-16) mg/dL Creatinine 1.01 (0.5-1.4) mg/dL Estim Creat Clear Calc 60.2 Estimated GFR > 60 Random Glucose 219 H D (60-115) mg/dL Calcium 8.1 L (8.4-10.2) mg/dL Total Bilirubin 0.8 (0.0-1.0) mg/dL Direct Bilirubin 0.4 (0.0-0.5) mg/dL AST 22 (5-37) U/L ALT 27 (0-40) U/L Alkaline Phosphatase 67 (39-117) U/L Troponin I High Sens 62.5 H D (<3.5-35.0) ng/L B-Natriuretic Peptide (<100) pg/mL Total Protein 5.5 L (6.5-8.0) g/dL Albumin 3.3 L (3.5-5.0) g/dL Lipase 24 (8-78) U/L Stool Occult Blood (NEGATIVE) Blood Type Crossmatch 07/13/21 07/13/21 07/13/21 Range/Units 14:12 14:12 14:12 WBC (4.8-10.8) X10*3/uL RBC (4.60-5.80) X10*6/uL Hgb (14.0-18.0) g/dl Hct (42.0-52.0) % MCV (80.0-98.0) fL MCH (27.0-33.0) pg MCHC (31.0-36.0) g/dl RDW (11.0-16.0) % Plt Count (160-400) X10*3/uL MPV Immature Gran % (Auto) Neut % (Auto) Lymph % (Auto) [place] % (Auto) Eos % (Auto) Baso % (Auto) Lymph # (Auto) [place] # (Auto) Eos # (Auto) Baso # (Auto) Abs Immat Gran (auto) Absolute Neuts (auto) Absolute Nucleated RBC (0.0-0.012) X10*3/uL Nucleated RBC % (auto) (0.0-0.2) /100WBC Neutrophils % (Manual) (45-73) % Band Neutrophils % (3-5) % Lymphocytes % (Manual) (20-40) % Monocytes % (Manual) (2-11) % Eosinophils % (Manual) (0-4) % Abs Neuts (Manual) (2.0-8.3) X10*3/uL Lymphocytes # (Manual) (1.2-4.9) X10*3/uL Monocytes # (Manual) (0.1-1.2) X10*3/uL Eosinophils # (Manual) (0.0-0.4) X10*3/uL Platelet Estimate (NORMAL) Plt Morphology Comment RBC Morphology Hypochromasia /OIF Macrocytosis /OIF Tear Drop Cells /OIF Ovalocytes /OIF Acanthocytes (Spur) /OIF Sodium (135-145) mmol/L Potassium (3.3-5.1) mmol/L Chloride (96-108) mmol/L Carbon Dioxide (22-29) mmol/L Anion Gap (12-20) BUN (9-16) mg/dL Creatinine (0.5-1.4) mg/dL Estim Creat Clear Calc Estimated GFR Random Glucose (60-115) mg/dL Calcium (8.4-10.2) mg/dL Total Bilirubin (0.0-1.0) mg/dL Direct Bilirubin (0.0-0.5) mg/dL AST (5-37) U/L ALT (0-40) U/L Alkaline Phosphatase (39-117) U/L Troponin I High Sens (<3.5-35.0) ng/L B-Natriuretic Peptide 80 (<100) pg/mL Total Protein (6.5-8.0) g/dL Albumin (3.5-5.0) g/dL Lipase (8-78) U/L Stool Occult Blood POSITIVE (NEGATIVE) Blood Type AB Positive Crossmatch See Detail Imaging Data Chest x-ray: Attestation: I personally reviewed and interpreted this imaging study as follows: Radiologist's impression: Findings suspicious for central airway disease. No consolidation or effusion seen. ? ECG Data Attestation: I personally reviewed and interpreted this ECG as follows: Interpretation: Sinus tachycardia at 112 beats per minutes with occasional PVC, right axis deviation, PVCs. Discharge Plan Discharge Clinical Impression: Anemia, Multiple myeloma, Thrombocytopenia Patient Disposition: Admitted As Inpatient Prescriptions: No Action diltiazem HCl 180 mg capsule,extended release 24 hr 180 mg PO QAM 90 Days Qty: 90 3RF brimonidine 0.2 % drops 1 drp ophthalmic-Left BID 0RF warfarin 5 mg tablet 5 mg PO DAILY 0RF Protocol: Dose Management Condition: Monday (Week One) Dose/Route: 5 mg Instruction: 1 x 5 mg tablet Condition: Monday Dose/Route: 7.5 mg Instruction: 1.5 x 5 mg tablets Condition: Monday Dose/Route: 5 mg Instruction: 1 x 5 mg tablet Condition: Monday Dose/Route: 5 mg Instruction: 1 x 5 mg tablet Condition: Dose/Route: 5 mg Instruction: 1 x 5 mg tablet Condition: Monday Dose/Route: 5 mg Instruction: 1 x 5 mg tablet Condition: Monday Dose/Route: 5 mg Instruction: 1 x 5 mg tablet Condition: Monday (Week Two) Dose/Route: 5 mg Instruction: 1 x 5 mg tablet Condition: Monday Dose/Route: 5 mg Instruction: 1 x 5 mg tablet Condition: Monday Dose/Route: 5 mg Instruction: 1 x 5 mg tablet Condition: Monday Dose/Route: 5 mg Instruction: 1 x 5 mg tablet Condition: Dose/Route: 5 mg Instruction: 1 x 5 mg tablet Condition: Monday Dose/Route: 5 mg Instruction: 1 x 5 mg tablet Condition: Monday Dose/Route: 5 mg Instruction: 1 x 5 mg tablet Protocol Text: Adjustment Start Date: Monday06/29/21 INR Value: 3.7 INR Date: 06/29/21 Recheck Date: 07/09/21 donepezil 10 mg tablet 10 mg PO DAILY 0RF metoprolol succinate 50 mg tablet extended release 24 hr 1 tab PO DAILY 0RF oxycodone 10 mg tablet 1 tab PO Q6H PRN (Reason: Pain, Severe) 0RF zoledronic acid 4 mg/5 mL solution 4 mg IV [id number] 0RF omeprazole 20 mg capsule,delayed release(DR/EC) 20 mg PO DAILY 0RF primidone 50 mg tablet 100 mg PO DAILY 0RF tamsulosin 0.4 mg capsule 0.4 mg PO BEDTIME 0RF metformin 500 mg tablet 500 mg PO BID 0RF latanoprost 0.005 % drops 1 drp ophthalmic-Right BEDTIME 0RF lenalidomide 25 mg capsule 25 mg PO DIRECTED 0RF Rx Instructions: 21 DAYS ON, 7 DAYS OFF dexamethasone 2 mg tablet 2 mg PO DIRECTED 0RF megestrol 400 mg/10 mL (40 mg/mL) suspension 400 mg PO BID 0RF acetaminophen 500 mg tablet 500 mg PO Q6H PRN (Reason: Pain, Mild) 0RF Velcade 3.5 mg recon soln IV 0RF acetaminophen-codeine 300-15 mg tablet 1 tab PO Q6H PRN (Reason: Pain) 0RF mirtazapine 15 mg tablet 15 mg PO BEDTIME 0RF
[2021-07-13 14:23] LABS: OBS Int Ctl Valid YES; OBS1 POSITIVE (NEGATIVE)
[2021-07-13 14:28] LABS: Hematocrit 25.2 % (42.0-52.0); Hemoglobin 8.7 g/dl (14.0-18.0); Mean Corpuscular HGB Conc 34.5 g/dl (31.0-36.0); Mean Corpuscular Hemoglobin 34.9 pg (27.0-33.0); Mean Corpuscular Volume 101.2 fL (80.0-98.0); Red Blood Count 2.49 X10*6/uL (4.60-5.80); Red Cell Distribution Width 14.5 % (11.0-16.0)
[2021-07-13 14:32] LABS: Platelet Count 14 X10*3/uL (160-400); WBC ABN SCTR FOR CBC 1
[2021-07-13 14:38] LABS: Alanine Aminotransferase 27 U/L (0-40); Albumin Level 3.3 g/dL (3.5-5.0); Alkaline Phosphatase 67 U/L (39-117); Anion Gap 14 (12-20); Aspartate Amino Transferase 22 U/L (5-37); Bilirubin Direct 0.4 mg/dL (0.0-0.5); Bilirubin Total 0.8 mg/dL (0.0-1.0); Blood Urea Nitrogen 14 mg/dL (9-16); Calcium 8.1 mg/dL (8.4-10.2); Carbon Dioxide 20 mmol/L (22-29); Chloride 110 mmol/L (96-108); Creatinine Clr Calc Pharmacy 60.2; Estimated Glomerular Filt Rate > 60; Glucose Random 219 mg/dL (60-115); Lipase 24 U/L (8-78); Sodium 140 mmol/L (135-145); Total Protein 5.5 g/dL (6.5-8.0)
[2021-07-13 14:41] LABS: B Type Natriuretic Peptide 80 pg/mL (<100); Band Neutrophils Percent 2 % (3-5); Eosinophils Absolute Manual 0.1 X10*3/uL (0.0-0.4); Eosinophils Percent Manual 8 % (0-4); Lymphocytes Absolute Manual 0.6 X10*3/uL (1.2-4.9); Lymphocytes Percent Manual 58 % (20-40); Monocytes Absolute Manual 0.2 X10*3/uL (0.1-1.2); Monocytes Percent Manual 16 % (2-11); Neutrophils Absolute Manual 0.2 X10*3/uL (2.0-8.3); Neutrophils Percent Manual 16 % (45-73); RBC Morphology NOTED; Troponin-I High Sensitivity 62.5 ng/L (<3.5-35.0)
[2021-07-13 14:42] LABS: Acanthocytes 1+ (0-2) /OIF; Macrocytosis 1+ (5-14) /OIF; Ovalocytes 1+ (5-14) /OIF
[2021-07-13 14:43] LABS: Hypochromasia 1+ (5-14) /OIF; Platelet Estimate DECREASED (NORMAL); Platelet Morphology Comment NORMAL; Tear Drop Cells 1+ (0-2) /OIF
--- NOTE | 2021-07-13 15:35 | PHA.MEDREC ---
Pharmacy Consult ? Medication Reconciliation Pharmacy has completed the medication reconciliation. has detailed list provided to pharmacy. She was told to hold the diltiazem while he gets oxycodone. He was due to start his cycle of chemo on Monday07/07/21 but wasn't able to. He would have had his velcade and #5 tablets of dexamethasone every Mon for 3 weeks. He would also have Revlimid on days 1-21 starting 07/07/21 but did not. He is currently taking warfarin 5 mg daily.
--- NOTE | 2021-07-13 15:44 | MHC.CM.ED ---
Patient currently in ER. Received notification from [facility] that patient is active with their agency. Referral sent via [employer] so they can follow patient. Continue to monitor for d/c needs.
--- NOTE | 2021-07-13 15:58 | PM.IMHP ---
History of Present Illness Date of Service: 07/13/21 Chief Complaint: Weakness, pancytopenia 68-year-old male with multiple myeloma complicated by pancytopenia presented with worsening pancytopenia and weakness. Patient was discharged from [facility] on 07/09/2021 after hospitalization for L5 vertebral fracture. Patient was seen by Neurosurgery at that time recommended no intervention. Patient was able to walk with assistance on day of discharge. Since then patient has been progressively weaker, on day of presentation patient had labs drawn which revealed pancytopenia with a white blood cell count of 1, hemoglobin 8.7, platelets of 14. Recommendations were to come to the ED. Review of Systems Review of Systems: Constitutional: Denies fever, denies Chills Eyes: denies blurry vision ENT: denies sore throat CVS: denies chest pain Respiratory: Denies dyspnea GI: no abdominal pain : denies dysuria MSK: back pain Skin: pressure ulcer Neuro: denies specific motor weakness Psych: denies suicidal ideation Endocrine: denies heat/cold intolerance Hematologic: denies easy bleeding Allergy: denies hives [facility] Medical History BPH (benign prostatic hyperplasia) Diabetes Diabetes mellitus DVT (deep venous thrombosis) Glaucoma HTN (hypertension) Multiple myeloma Paroxysmal atrial fibrillation Urinary retention due to benign prostatic hyperplasia Family History Son FSGS (focal segmental glomerulosclerosis) Surgical History H/O cataract removal with insertion of prosthetic lens Social History Household Members: Spouse Housing: House Do you presently have visiting nurse or other home services: No Alcohol intake: current Alcohol intake frequency: holidays/special occasions only Patient Tobacco Use Status: Former Tobacco user Advance Directives: Yes Advance Directives Information Provided: Yes Advance Directives on File: No service: No Current occupational status: retired Meds Allergies Allergy/AdvReac Type Severity Reaction Status Date / Time No Known Allergies Allergy Verified 06/29/21 11:38 [No Known Allergies*] Active Medications: Current Medications Brimonidine Tartrate (Brimonidine Tartrate 0.2% Oph 5 Ml Bottle) 1 drop EYE-LEFT BID DAISY Dextrose (Dextrose 50 % 25 Gm/50 Ml Syringe) 25 gm IVPUSH Q15M PRN; Protocol PRN Reason: per Hypoglycemia Standing Ord. Diltiazem HCl (Diltiazem Hcl Cd 180 Mg Cap.Er.24h) 180 mg PO QAM DAISY; Protocol Donepezil HCl (Donepezil Hcl 10 Mg Tablet) mg PO DAILY [facility] Glucose (Glucose Gel 15 Gm Gel..Gram.) 15 gm PO Q15M PRN; Protocol PRN Reason: per Hypoglycemia Standing Ord. Insulin Human Lispro (Insulin Lispro 100 Unit/Ml 3 Ml Vial) 0 unit SUBCUT QIDACHS [facility]; Protocol Latanoprost (Latanoprost 0.005 % Ophth Myra 2.5 Ml Drops) 1 drop EYE-RIGHT BEDTIME [facility] Megestrol Acetate (Megestrol Acetate 400 Mg/10 Ml Oral.Susp) 400 mg PO BID [facility] Metoprolol Succinate (Metoprolol Succinate Er 25 Mg Tab.Er.24h) 25 mg PO DAILY [facility]; Protocol Mirtazapine (Mirtazapine 15 Mg Tablet) 15 mg PO BEDTIME [facility] Non-Formulary Medication (Acetaminophen-Codeine) 1 tab PO Q6H PRN PRN Reason: moderate pain Non-Formulary Medication (Lenalidomide) 25 mg PO DIRECTED [facility] Omeprazole (Omeprazole 20 Mg Capsule.) 20 mg PO DAILY [facility] Oxycodone HCl (Oxycodone Hcl Immed Release 5 Mg Tablet) 10 mg PO Q6H PRN PRN Reason: Pain, Severe Pharmacy Consult (Consult Rx Perform Med Rec) 1 each MISCELLANE ONCE PRN PRN Reason: Consult order Primidone (Primidone 50 Mg Tablet) 100 mg PO DAILY [facility] Tamsulosin HCl (Tamsulosin Hcl 0.4 Mg Capsule) 0.4 mg PO BEDTIME [facility] Home Medications Medication Instructions Recorded Confirmed Last Taken Type metformin 500 mg tablet 500 mg PO BID 04/16/20 07/13/21 11/02/20 History omeprazole 20 mg capsule,delayed 20 mg PO DAILY 04/16/20 07/13/21 11/02/20 History release primidone 50 mg tablet 100 mg PO DAILY 04/16/20 07/13/21 11/02/20 History tamsulosin 0.4 mg capsule 0.4 mg PO BEDTIME 04/16/20 07/13/21 11/01/20 History zoledronic acid 4 mg/5 mL 4 mg IV [id number] 04/16/20 07/13/21 Unknown History intravenous solution latanoprost 0.005 % eye drops 1 drp OPHTHALMIC-RIGHT BEDTIME 05/07/20 07/13/21 11/01/20 History brimonidine 0.2 % eye drops 1 drp OPHTHALMIC-LEFT BID 11/02/20 07/13/21 11/02/20 History warfarin 5 mg tablet 5 mg PO DAILY 11/02/20 07/13/21 11/02/20 History donepezil 10 mg tablet 10 mg PO DAILY 01/07/21 07/13/21 Unknown History lenalidomide 25 mg capsule 25 mg PO DIRECTED 01/07/21 07/13/21 Unknown History dexamethasone 2 mg tablet 10 mg PO Q7D 01/22/21 06/29/21 Unknown History acetaminophen 300 mg-codeine 15 mg 1 tab PO Q6H PRN 03/02/21 07/13/21 Unknown History tablet mirtazapine 15 mg tablet 15 mg PO BEDTIME 05/28/21 07/13/21 Unknown History acetaminophen 500 mg tablet 500 mg PO Q6H PRN 06/29/21 07/13/21 Unknown History bortezomib 3.5 mg injection powder 3.5 mg IV Q7D 06/29/21 06/29/21 Unknown History for solution (Velcade) megestrol 400 mg/10 mL (40 mg/mL) 400 mg PO BID 06/29/21 07/13/21 Unknown History oral suspension metoprolol succinate 50 mg 25 mg PO DAILY 07/13/21 07/13/21 Unknown History tablet,extended release 24 hr oxycodone 10 mg tablet 1 tab PO Q6H PRN 07/13/21 07/13/21 Unknown History Physical Exam Vital Signs and Narrative: Vital Signs: Last Vital Signs Temp 98.7 F 07/13/21 15:37 Pulse 100 07/13/21 15:37 Resp 20 07/13/21 15:37 BP 122/57 L 07/13/21 15:37 Pulse Ox 97 07/13/21 15:37 BMI result Body Mass Index 27.1 General: frail ill appearing, alert HEENT: atraumatic Neck: normal to visual inspection CVS: S1, S2, RRR Resp: CTA bilateral Chest: non tender GI: soft, non tender, non distended : no CVA tenderness Skin: pressure ulcer sacrum Extremities: no edema Neuro: Oriented X3, grossly intact Psych: cooperative Results Labs CBC and Chem 7: 07/13/21 14:12 07/13/21 14:12 Labs: Laboratory Results - last 24 hr 07/13/21 07/13/21 07/13/21 14:12 14:12 14:12 MCV 101.2 H MCH 34.9 H MCHC 34.5 RDW 14.5 Plt Count 14 L* MPV Not Reportable Immature Gran % (Auto) Cancelled Neut % (Auto) Cancelled Lymph % (Auto) Cancelled [place] % (Auto) Cancelled Eos % (Auto) Cancelled Baso % (Auto) Cancelled Lymph # (Auto) Cancelled [place] # (Auto) Cancelled Eos # (Auto) Cancelled Baso # (Auto) Cancelled Abs Immat Gran (auto) Cancelled Absolute Neuts (auto) Cancelled Absolute Nucleated RBC 0.000 Nucleated RBC % (auto) 0.0 Neutrophils % (Manual) 16 L Band Neutrophils % 2 L Lymphocytes % (Manual) 58 H Monocytes % (Manual) 16 H Eosinophils % (Manual) 8 H Abs Neuts (Manual) 0.2 L Lymphocytes # (Manual) 0.6 L Monocytes # (Manual) 0.2 Eosinophils # (Manual) 0.1 Platelet Estimate DECREASED Plt Morphology Comment NORMAL RBC Morphology NOTED Hypochromasia 1+ (5-14) Macrocytosis 1+ (5-14) Tear Drop Cells 1+ (0-2) Ovalocytes 1+ (5-14) Acanthocytes (Spur) 1+ (0-2) Anion Gap 14 Estim Creat Clear Calc 60.2 Estimated GFR > 60 Random Glucose 219 H D Calcium 8.1 L Total Bilirubin 0.8 Direct Bilirubin 0.4 AST 22 ALT 27 Alkaline Phosphatase 67 Troponin I High Sens 62.5 H D B-Natriuretic Peptide Total Protein 5.5 L Albumin 3.3 L Lipase 24 Stool Occult Blood Blood Type Antibody Screen Crossmatch 07/13/21 07/13/21 07/13/21 14:12 14:12 14:12 MCV MCH MCHC RDW Plt Count MPV Immature Gran % (Auto) Neut % (Auto) Lymph % (Auto) [place] % (Auto) Eos % (Auto) Baso % (Auto) Lymph # (Auto) [place] # (Auto) Eos # (Auto) Baso # (Auto) Abs Immat Gran (auto) Absolute Neuts (auto) Absolute Nucleated RBC Nucleated RBC % (auto) Neutrophils % (Manual) Band Neutrophils % Lymphocytes % (Manual) Monocytes % (Manual) Eosinophils % (Manual) Abs Neuts (Manual) Lymphocytes # (Manual) Monocytes # (Manual) Eosinophils # (Manual) Platelet Estimate Plt Morphology Comment RBC Morphology Hypochromasia Macrocytosis Tear Drop Cells Ovalocytes Acanthocytes (Spur) Anion Gap Estim Creat Clear Calc Estimated GFR Random Glucose Calcium Total Bilirubin Direct Bilirubin AST ALT Alkaline Phosphatase Troponin I High Sens B-Natriuretic Peptide 80 Total Protein Albumin Lipase Stool Occult Blood POSITIVE Blood Type AB Positive Antibody Screen NEGATIVE Crossmatch See Detail Imaging Radiologist's Impressions: Impressions Chest X-Ray 07/13/21 13:26 IMPRESSION: Findings suspicious for central airway disease. No consolidation or effusion seen. Assessment and Plan (1) Paroxysmal atrial fibrillation: Status: Acute Plan 76M presented with pancytopenia and weakness multiple myeloma complicated by pancytopenia and weakness transfuse PRBC and platelets monitor CBC hematology consult with Dr. Ellis paroxysmal atrial fibrillation continue Toprol and diltiazem, Coumadin on hold for thrombocytopenia hypertension Cardizem and Toprol diabetes hold metformin, insulin sliding scale BPH Flomax DVT prophylaxis -mechanical due to thrombocytopenia full code Quality Stroke Does the patient have a stroke diagnosis?: No VTE Prior VTE?: No VTE Risk Level:: Medical - moderate - high VTE Device Contraindication: N/A - Device Ordered VTE Drug Contraindication: Treatment Not Tolerated
--- NOTE | 2021-07-13 16:00 | PC.NURSE ---
blood transfusion started, pt afebrile, vss, lscta. no sob/headache/dizziness reported. pt tolerating blood transfusion well.
[2021-07-13 16:16] LABS: COVID-19 Test Negative (Negative)
[2021-07-13 17:25] LABS: Appearance Urine CLEAR; Color Urine YELLOW; Glucose Urine UA 100 MG/DL (NEG); Leukocyte Esterase Urine NEG (NEG); Nitrite Urine NEG (NEG); PH 5.5 (5.0-8.0); Specific Gravity - Urine >= 1.030 (1.005-1.025); UACC Culture Trigger NO; Urine Blood 1+ (NEG); Urine Ketones NEG (NEG); Urine Protein 2+ MG/DL (NEG-TRACE)
[2021-07-13 17:25] LABS: Glucose, Whole Blood 124 mg/dL (60-115)
--- NOTE | 2021-07-13 17:43 | PM.HEMONCCN ---
Subjective - Subjective Chief complaint: myeloma Patient: known to practice within the last 3 years Consult date: 07/13/21 Primary Care Provider: Cheko Ellis MD HPI - Consult Narrative Narrative: Tonny Hernadez is a 76 year old male well known to me found to have IgG-k myeloma summer treated with low dose examethasone, lenalidomide and bortezimib now refractory to same. He presents with rapid onset pancytopenia and L5 compression fracture. He is admitted for transfusions and kpain control. Review of Systems - Constitutional Reports anorexia, Reports fatigue, Reports lack of energy, Reports weakness, Reports weight loss - ENT Reports system reviewed and no additional complaints, except as documented - Cardiovascular Reports fast heart rate, Reports lightheadedness, Reports shortness of breath with activity - Respiratory Reports dyspnea on exertion - Gastrointestinal Reports other - Genitourinary Genitourinary: Reports urinary urgency - Musculoskeletal Reports decreased muscle mass - Neurologic Reports weakness PMFSH Medical History: Medical History (Last Reviewed 07/13/21 @ 16:02 by Robert Calderon MD) BPH (benign prostatic hyperplasia) Diabetes Diabetes mellitus DVT (deep venous thrombosis) Glaucoma HTN (hypertension) Multiple myeloma Paroxysmal atrial fibrillation Urinary retention due to benign prostatic hyperplasia Family History: Family History (Last Reviewed 07/13/21 @ 16:02 by Robert Calderon MD) Son FSGS (focal segmental glomerulosclerosis) Surgical History: Surgical History (Last Reviewed 07/13/21 @ 16:02 by Robert Calderon MD) H/O cataract removal with insertion of prosthetic lens Social History: Social History (Last Reviewed 07/13/21 @ 16:02 by Robert Calderon MD) Living Situation History: Household Members: Spouse Housing: House Do you presently have visiting nurse or other home services: No Tobacco History: Patient Tobacco Use Status: Former Tobacco user Substance Use History: Use of substances other than those prescribed or required for medical reasons: No Advance Directives: Advance Directives: Yes Advance Directives Information Provided: Yes Advance Directives on File: No Occupation Assessmet: service: No Current occupational status: retired Home Medications and Allergies Current Medications: Current Medications Acetaminophen (Acetaminophen 325 Mg Tablet) 650 mg PO Q6H PRN PRN Reason: Pain, Mild (Pain Scale 1-3) Brimonidine Tartrate (Brimonidine Tartrate 0.2% Oph 5 Ml Bottle) 1 drop EYE-LEFT BID DAISY Dextrose (Dextrose 50 % 25 Gm/50 Ml Syringe) 25 gm IVPUSH Q15M PRN; Protocol PRN Reason: per Hypoglycemia Standing Ord. Diltiazem HCl (Diltiazem Hcl Cd 180 Mg Cap.Er.24h) 180 mg PO DAILY [facility]; Protocol Donepezil HCl (Donepezil Hcl 10 Mg Tablet) 10 mg PO DAILY [facility] Glucose (Glucose Gel 15 Gm Gel..Gram.) 15 gm PO Q15M PRN; Protocol PRN Reason: per Hypoglycemia Standing Ord. Insulin Human Lispro (Insulin Lispro 100 Unit/Ml 3 Ml Vial) 0 unit SUBCUT QIDACHS [facility]; Protocol Latanoprost (Latanoprost 0.005 % Ophth Myra 2.5 Ml Drops) 1 drop EYE-RIGHT BEDTIME [facility] Megestrol Acetate (Megestrol Acetate 400 Mg/10 Ml Oral.Susp) 400 mg PO BID [facility] Metoprolol Succinate (Metoprolol Succinate Er 25 Mg Tab.Er.24h) 25 mg PO DAILY [facility]; Protocol Mirtazapine (Mirtazapine 15 Mg Tablet) 15 mg PO BEDTIME [facility] Non-Formulary Medication (Acetaminophen-Codeine) 1 tab PO Q6H PRN PRN Reason: moderate pain Non-Formulary Medication (Lenalidomide) 25 mg PO DIRECTED [facility] Omeprazole (Omeprazole 20 Mg Capsule.Dr) 20 mg PO DAILY@0630 [facility] Oxycodone HCl (Oxycodone Hcl Immed Release 5 Mg Tablet) 10 mg PO Q6H PRN PRN Reason: Pain, Severe Pharmacy Consult (Consult Rx Perform Med Rec) 1 each MISCELLANE ONCE PRN PRN Reason: Consult order Primidone (Primidone 50 Mg Tablet) 100 mg PO DAILY [facility] Sodium Chloride (0.9 % Sodium Chloride Flush 3 Ml Syringe) 3 ml IVFLUSH QSHIFT [facility] Tamsulosin HCl (Tamsulosin Hcl 0.4 Mg Capsule) 0.4 mg PO BEDTIME [facility] Home Medications Medication Instructions Recorded Confirmed Type metformin 500 mg tablet 500 mg PO BID 04/16/20 07/13/21 History omeprazole 20 mg capsule,delayed 20 mg PO DAILY 04/16/20 07/13/21 History release primidone 50 mg tablet 100 mg PO DAILY 04/16/20 07/13/21 History tamsulosin 0.4 mg capsule 0.4 mg PO BEDTIME 04/16/20 07/13/21 History zoledronic acid 4 mg/5 mL 4 mg IV [id number] 04/16/20 07/13/21 History intravenous solution latanoprost 0.005 % eye drops 1 drp OPHTHALMIC-RIGHT BEDTIME 05/07/20 07/13/21 History brimonidine 0.2 % eye drops 1 drp OPHTHALMIC-LEFT BID 11/02/20 07/13/21 History warfarin 5 mg tablet 5 mg PO DAILY 11/02/20 07/13/21 History donepezil 10 mg tablet 10 mg PO DAILY 01/07/21 07/13/21 History lenalidomide 25 mg capsule 25 mg PO DIRECTED 01/07/21 07/13/21 History dexamethasone 2 mg tablet 10 mg PO Q7D 01/22/21 06/29/21 History acetaminophen 300 mg-codeine 15 mg 1 tab PO Q6H PRN 03/02/21 07/13/21 History tablet mirtazapine 15 mg tablet 15 mg PO BEDTIME 05/28/21 07/13/21 History acetaminophen 500 mg tablet 500 mg PO Q6H PRN 06/29/21 07/13/21 History bortezomib 3.5 mg injection powder 3.5 mg IV Q7D 06/29/21 06/29/21 History for solution (Velcade) megestrol 400 mg/10 mL (40 mg/mL) 400 mg PO BID 06/29/21 07/13/21 History oral suspension metoprolol succinate 50 mg 25 mg PO DAILY 07/13/21 07/13/21 History tablet,extended release 24 hr oxycodone 10 mg tablet 1 tab PO Q6H PRN 07/13/21 07/13/21 History Allergies Allergy/AdvReac Type Severity Reaction Status Date / Time No Known Allergies Allergy Verified 06/29/21 11:38 [No Known Allergies*] Physical Exam Vital signs: Vital Signs Temp 98.7 F 07/13/21 15:37 Pulse 97 07/13/21 15:45 Resp 28 H 07/13/21 15:45 BP 122/62 07/13/21 15:45 Pulse Ox 97 07/13/21 15:37 Intake & Output 07/12/21 07/13/21 07/13/21 18:59 06:59 18:59 Intake Total 0 / 0 Balance 0 / 0 Intake: Intake (Blood Product) Amount 0 / 0 Red Blood Cells (E0382) Unit 0 / 0 [id number] Other: Weight 83.5 kg Weight 83.5 kg - Constitutional Present: no acute distress - Routine HEENT Exam Head: Present: atraumatic - Routine Neck Exam Present: supple - Routine Respiratory Exam Present: decreased breath sounds - Routine Cardiovascular Exam Cardiovascular: Present: RRR, tachycardia - Routine Abdominal Exam Present: diminished bowel sounds - Routine Extremities Exam Present: normal inspection - Routine Skin Exam Present: intact - Routine Neurological Exam Present: alert Hem/Onc Consult Result - Labs CBC & Chem 7: 07/13/21 14:12 07/13/21 14:12 Labs: Short CBC 07/13/21 Range/Units 14:12 WBC 1.0 L (4.8-10.8) X10*3/uL Hgb 8.7 L (14.0-18.0) g/dl Hct 25.2 L (42.0-52.0) % Plt Count 14 L* (160-400) X10*3/uL BMP 07/13/21 14:12 Sodium 140 Potassium 4.0 Chloride 110 H Carbon Dioxide 20 L BUN 14 Creatinine 1.01 Calcium 8.1 L Liver Function 07/13/21 Range/Units 14:12 Total Bilirubin 0.8 (0.0-1.0) mg/dL Direct Bilirubin 0.4 (0.0-0.5) mg/dL AST 22 (5-37) U/L ALT 27 (0-40) U/L Alkaline Phosphatase 67 (39-117) U/L Albumin 3.3 L (3.5-5.0) g/dL Urine 07/13/21 Range/Units 17:15 Urine Color YELLOW Urine Appearance CLEAR Urine pH 5.5 (5.0-8.0) Ur Specific [place] >= 1.030 H (1.005-1.025) Urine Protein 2+ H (NEG-TRACE) MG/DL Urine Glucose (UA) 100 H (NEG) MG/DL Assessment and Plan Patient Active problem list reviewed?: Yes (1) Multiple myeloma Status: Acute Assessment and plan: He will need platelets and red cells. I will speak with him and his about their desire for more antineoplastic therapy or palliative care. He could be treated with polalidamide or daratumumab or carfilzumab with some chance of response. - Time Spent With Patient Time Spent with Patient (in minutes): 25
[2021-07-13 18:02] LABS: RBC Urine 0-2 /HPF (0); Squamous Epithelial Cell Urine 1+ /LPF; WBC Urine 0-2 /HPF (0-4)
[2021-07-13 18:03] LABS: Granular Casts Urine 0-2 /LPF; Mucus Urine 2+ /LPF
[2021-07-13] MEDS: dilTIAZem HCL CD 180 MG CAP.ER.24H PO (18:07)
[2021-07-13 21:55] LABS: Glucose, Whole Blood 130 mg/dL (60-115)
[2021-07-13] MEDS: Mirtazapine 15 MG TABLET PO (22:19)
[2021-07-13] MEDS: Tamsulosin HCL 0.4 MG CAPSULE PO (22:19)
[2021-07-13] MEDS: Latanoprost 0.005 % Ophth Sol 2.5 ML DROPS 1 DROP EYE-RIGHT (22:37)
[2021-07-13] MEDS: Megestrol Acetate 400 MG/10 ML ORAL.SUSP PO (22:37)
[2021-07-13] MEDS: Brimonidine Tartrate 0.2% Oph 5 ML BOTTLE 1 DROP EYE-LEFT (22:38)
[2021-07-13] MEDS: 0.9 % Sodium Chloride Flush 3 ML SYRINGE IVFLUSH (23:00)
[2021-07-14] VITALS (14 sets, daily range): BP systolic 91–140; BP diastolic 46–65; PULSE 68–88; RESP 18–30; TEMP 36.1–37.1; O2SAT 96–99; BMI 27.1
--- NOTE | 2021-07-14 01:17 | PC.NURSE ---
Pt seen around 2330 asleep on bed and awaken when spoken to, alert and oriented, denies any pain nor SOB, LS dim and tolerating RA, no CP notd nor any edema, still feeling weak, callbell in reach, bed alarm on, slept fairly.
[2021-07-14] MEDS: Omeprazole 20 MG CAPSULE.DR PO (05:29)
[2021-07-14 05:46] LABS: Hematocrit 23.9 % (42.0-52.0); Hemoglobin 8.3 g/dl (14.0-18.0); Mean Corpuscular HGB Conc 34.7 g/dl (31.0-36.0); Mean Corpuscular Hemoglobin 33.3 pg (27.0-33.0); Mean Platelet Volume 9.8 fL (9.4-12.4); Red Blood Count 2.49 X10*6/uL (4.60-5.80); Red Cell Distribution Width 17.3 % (11.0-16.0)
[2021-07-14 05:50] LABS: Platelet Count 26 X10*3/uL (160-400)
[2021-07-14 05:54] LABS: White Blood Count 1.2 X10*3/uL (4.8-10.8)
[2021-07-14 06:05] LABS: Anion Gap 13 (12-20); Blood Urea Nitrogen 18 mg/dL (9-16); Calcium 7.8 mg/dL (8.4-10.2); Carbon Dioxide 20 mmol/L (22-29); Chloride 112 mmol/L (96-108); Creatinine Clr Calc Pharmacy 76.1; Estimated Glomerular Filt Rate > 60; Glucose Fasting 116 mg/dL (60-99); Potassium 3.8 mmol/L (3.3-5.1); Sodium 141 mmol/L (135-145)
--- NOTE | 2021-07-14 07:47 | PC.NURSE ---
patient worked with PT this am
[2021-07-14 08:21] LABS: Glucose, Whole Blood 112 mg/dL (60-115)
[2021-07-14] MEDS: Metoprolol Succinate ER 25 MG TAB.ER.24H PO (09:07)
[2021-07-14] MEDS: Megestrol Acetate 400 MG/10 ML ORAL.SUSP PO ×2 (09:07→21:20)
[2021-07-14] MEDS: Primidone 50 MG TABLET 100 MG PO (09:07)
[2021-07-14] MEDS: dilTIAZem HCL CD 180 MG CAP.ER.24H PO (09:07)
[2021-07-14] MEDS: Donepezil HCl 10 MG TABLET PO (09:08)
[2021-07-14] MEDS: 0.9 % Sodium Chloride Flush 3 ML SYRINGE IVFLUSH ×2 (09:09→21:20)
[2021-07-14] MEDS: Brimonidine Tartrate 0.2% Oph 5 ML BOTTLE 1 DROP EYE-LEFT (09:09)
--- NOTE | 2021-07-14 10:56 | MHC.CM.PN ---
CM MET WITH PT AND HIS , ARIN, WHO WAS AT BEDSIDE PT IS ACTIVE WITH [facility] FOR SN SERVICES AND HIS CARES FOR THE ULCER ON HIS COCCYX PT HAS A HOSPITAL BED, GRAB BARS, A CANE AND A WALKER AT HOME PT IS COVID-19 VACCINATED WITH MODERNA X 3 (05/22/20, 06/19/20 & 01/28) THEY REPORT ARIN IS HIS HCP AGENT, COPY NEEDED ARIN REPORTS THE PT IS FULL CODE IMM DELIVERED, CURRENT DC PLAN IS [facility]
--- NOTE | 2021-07-14 11:19 | P.PNIM_ITS ---
Subjective Subjective Date of Service: 07/14/21 Interval History: the patient was seen and evaluated this morning Laying in bed, feels better than before Platelets and WBCs still significantly low Denies any fever, chills or shortness of breath No reported other overnight events. Systemic review: No fever, chills but reports generalized weakness No chest pain, palpitation No shortness of breath or coughing No abdominal pain, nausea or vomiting No urinary symptoms No any rash or wounds Physical Exam Vital Signs: Vital Signs: Last Vital Signs Temp 98.2 F 07/14/21 00:00 Pulse 83 07/14/21 07:58 Resp 24 H 07/14/21 07:56 BP 120/53 L 07/14/21 07:58 Pulse Ox 96 07/14/21 07:58 BMI result Body Mass Index 27.1 Const: Other: Constitutional : Alert, oriented, not in distress Neck : Normal inspection, Supple Cardiovascular : RRR, S1 S2, no lower extremity edema Respiratory : Fair bilateral air entry, no crackles, wheezes or rhonchi Gastrointestinal: soft, lax, Normal bowel sounds, Non tender Skin : Warm, Dry Neurological : Alert & oriented x3, No focal deficit Objective Data Active Medications Acetaminophen (Acetaminophen 325 Mg Tablet) 650 mg PO Q6H PRN PRN Reason: Pain, Mild (Pain Scale 1-3) Brimonidine Tartrate (Brimonidine Tartrate 0.2% Oph 5 Ml Bottle) 1 drop EYE- LEFT BID ON LICENSE OF [facility] Last Admin: 07/14/21 09:09 Dose: 1 drop Documented by: JEANA Dextrose (Dextrose 50 % 25 Gm/50 Ml Syringe) 25 gm IVPUSH Q15M PRN; Protocol PRN Reason: per Hypoglycemia Standing Ord. Diltiazem HCl (Diltiazem Hcl Cd 180 Mg Cap.Er.24h) 180 mg PO DAILY ON [facility] OF [facility]; Protocol Last Admin: 07/14/21 09:07 Dose: 180 mg Documented by: JEANA Donepezil HCl (Donepezil Hcl 10 Mg Tablet) 10 mg PO DAILY ON LICENSE OF [facility] Last Admin: 07/14/21 09:08 Dose: 10 mg Documented by: JEANA Glucose (Glucose Gel 15 Gm Gel..Gram.) 15 gm PO Q15M PRN; Protocol PRN Reason: per Hypoglycemia Standing Ord. Insulin Human Lispro (Insulin Lispro 100 Unit/Ml 3 Ml Vial) 0 unit SUBCUT QIDACHS ON LICENSE OF [facility]; Protocol Last Admin: 07/14/21 09:01 Dose: Not Given Documented by: JEANA Non-Admin Reason: bs 112 Latanoprost (Latanoprost 0.005 % Ophth Myra 2.5 Ml Drops) 1 drop EYE-RIGHT BEDTIME ON LICENSE OF [facility] Last Admin: 07/13/21 22:37 Dose: 1 drop Documented by: MIGUELITO Megestrol Acetate (Megestrol Acetate 400 Mg/10 Ml Oral.Susp) 400 mg PO BID ON LICENSE OF [facility] Last Admin: 07/14/21 09:07 Dose: 400 mg Documented by: JEANA Metoprolol Succinate (Metoprolol Succinate Er 25 Mg Tab.Er.24h) 25 mg PO DAILY ON LICENSE OF [facility]; Protocol Last Admin: 07/14/21 09:07 Dose: 25 mg Documented by: JEANA Mirtazapine (Mirtazapine 15 Mg Tablet) 15 mg PO BEDTIME ON LICENSE OF [facility] Last Admin: 07/13/21 22:19 Dose: 15 mg Documented by: MIGUELITO Morphine Sulfate (Morphine Sulfate 4 Mg/Ml Cartridge) 4 mg IVPUSH Q4H PRN; Protocol PRN Reason: Pain, Severe (Pain Scale 7-10) Omeprazole (Omeprazole 20 Mg Capsule.Dr) 20 mg PO DAILY@0630 ON LICENSE OF [facility] Last Admin: 07/14/21 05:29 Dose: 20 mg Documented by: RADHA Oxycodone HCl (Oxycodone Hcl Immed Release 5 Mg Tablet) 10 mg PO Q6H PRN PRN Reason: Pain, Moderate (Pain Scale 4-6 Pharmacy Consult (Consult Rx Perform Med Rec) 1 each MISCELLANE ONCE PRN PRN Reason: Consult order Primidone (Primidone 50 Mg Tablet) 100 mg PO DAILY ON LICENSE OF [facility] Last Admin: 07/14/21 09:07 Dose: 100 mg Documented by: JEANA Sodium Chloride (0.9 % Sodium Chloride Flush 3 Ml Syringe) 3 ml IVFLUSH QSHIFT ON LICENSE OF [facility] Last Admin: 07/14/21 09:09 Dose: 3 ml Documented by: JEANA Tamsulosin HCl (Tamsulosin Hcl 0.4 Mg Capsule) 0.4 mg PO BEDTIME ON LICENSE OF [facility] Last Admin: 07/13/21 22:19 Dose: 0.4 mg Documented by: MIGUELITO Labs CBC & Chem 7: 07/14/21 05:26 07/14/21 05:26 Labs: Laboratory Results - last 24 hr 07/13/21 07/13/21 07/13/21 14:12 14:12 14:12 MCV 101.2 H MCH 34.9 H MCHC 34.5 RDW 14.5 Plt Count 14 L* MPV Not Reportable Immature Gran % (Auto) Cancelled Neut % (Auto) Cancelled Lymph % (Auto) Cancelled Boyd % (Auto) Cancelled Eos % (Auto) Cancelled Baso % (Auto) Cancelled Lymph # (Auto) Cancelled Boyd # (Auto) Cancelled Eos # (Auto) Cancelled Baso # (Auto) Cancelled Abs Immat Gran (auto) Cancelled Absolute Neuts (auto) Cancelled Absolute Nucleated RBC 0.000 Nucleated RBC % (auto) 0.0 Neutrophils % (Manual) 16 L Band Neutrophils % 2 L Lymphocytes % (Manual) 58 H Monocytes % (Manual) 16 H Eosinophils % (Manual) 8 H Abs Neuts (Manual) 0.2 L Lymphocytes # (Manual) 0.6 L Monocytes # (Manual) 0.2 Eosinophils # (Manual) 0.1 Platelet Estimate DECREASED Plt Morphology Comment NORMAL RBC Morphology NOTED Hypochromasia 1+ (5-14) Macrocytosis 1+ (5-14) Tear Drop Cells 1+ (0-2) Ovalocytes 1+ (5-14) Acanthocytes (Spur) 1+ (0-2) Anion Gap 14 Estim Creat Clear Calc 60.2 Estimated GFR > 60 POC Glucose Random Glucose 219 H D Fasting Glucose Calcium 8.1 L Total Bilirubin 0.8 Direct Bilirubin 0.4 AST 22 ALT 27 Alkaline Phosphatase 67 Troponin I High Sens 62.5 H D B-Natriuretic Peptide Total Protein 5.5 L Albumin 3.3 L Lipase 24 Urine Color Urine Appearance Urine pH Ur Specific [place] Urine Protein Urine Glucose (UA) Urine Ketones Urine Blood Urine Nitrite Ur Leukocyte Esterase Urine RBC Urine WBC Ur Squamous Epith Cells Urine Bacteria Granular Casts Urine Mucus Stool Occult Blood COVID-19 ([facility]OSIA[facility]) COVID-19 Clin Com Blood Type Antibody Screen Crossmatch 07/13/21 07/13/21 07/13/21 14:12 14:12 14:12 MCV MCH MCHC RDW Plt Count MPV Immature Gran % (Auto) Neut % (Auto) Lymph % (Auto) Boyd % (Auto) Eos % (Auto) Baso % (Auto) Lymph # (Auto) Boyd # (Auto) Eos # (Auto) Baso # (Auto) Abs Immat Gran (auto) Absolute Neuts (auto) Absolute Nucleated RBC Nucleated RBC % (auto) Neutrophils % (Manual) Band Neutrophils % Lymphocytes % (Manual) Monocytes % (Manual) Eosinophils % (Manual) Abs Neuts (Manual) Lymphocytes # (Manual) Monocytes # (Manual) Eosinophils # (Manual) Platelet Estimate Plt Morphology Comment RBC Morphology Hypochromasia Macrocytosis Tear Drop Cells Ovalocytes Acanthocytes (Spur) Anion Gap Estim Creat Clear Calc Estimated GFR POC Glucose Random Glucose Fasting Glucose Calcium Total Bilirubin Direct Bilirubin AST ALT Alkaline Phosphatase Troponin I High Sens B-Natriuretic Peptide 80 Total Protein Albumin Lipase Urine Color Urine Appearance Urine pH Ur Specific [place] Urine Protein Urine Glucose (UA) Urine Ketones Urine Blood Urine Nitrite Ur Leukocyte Esterase Urine RBC Urine WBC Ur Squamous Epith Cells Urine Bacteria Granular Casts Urine Mucus Stool Occult Blood POSITIVE COVID-19 ([facility]) COVID-19 Clin Com Blood Type AB Positive Antibody Screen NEGATIVE Crossmatch See Detail 07/13/21 07/13/21 07/13/21 15:40 17:14 17:15 MCV MCH MCHC RDW Plt Count MPV Immature Gran % (Auto) Neut % (Auto) Lymph % (Auto) Boyd % (Auto) Eos % (Auto) Baso % (Auto) Lymph # (Auto) Boyd # (Auto) Eos # (Auto) Baso # (Auto) Abs Immat Gran (auto) Absolute Neuts (auto) Absolute Nucleated RBC Nucleated RBC % (auto) Neutrophils % (Manual) Band Neutrophils % Lymphocytes % (Manual) Monocytes % (Manual) Eosinophils % (Manual) Abs Neuts (Manual) Lymphocytes # (Manual) Monocytes # (Manual) Eosinophils # (Manual) Platelet Estimate Plt Morphology Comment RBC Morphology Hypochromasia Macrocytosis Tear Drop Cells Ovalocytes Acanthocytes (Spur) Anion Gap Estim Creat Clear Calc Estimated GFR POC Glucose 124 H Random Glucose Fasting Glucose Calcium Total Bilirubin Direct Bilirubin AST ALT Alkaline Phosphatase Troponin I High Sens B-Natriuretic Peptide Total Protein Albumin Lipase Urine Color YELLOW Urine Appearance CLEAR Urine pH 5.5 Ur Specific [place] >= 1.030 H Urine Protein 2+ H Urine Glucose (UA) 100 H Urine Ketones NEG Urine Blood 1+ H Urine Nitrite NEG Ur Leukocyte Esterase NEG Urine RBC 0-2 Urine WBC 0-2 Ur Squamous Epith Cells 1+ Urine Bacteria NONE Granular Casts 0-2 Urine Mucus 2+ Stool Occult Blood COVID-19 ([facility]) Negative COVID-19 Clin Com See Note Blood Type Antibody Screen Crossmatch 07/13/21 07/14/21 07/14/21 21:50 05:26 05:26 MCV 96.0 D MCH 33.3 H MCHC 34.7 RDW 17.3 H Plt Count 26 L D MPV 9.8 Immature Gran % (Auto) Neut % (Auto) Lymph % (Auto) Boyd % (Auto) Eos % (Auto) Baso % (Auto) Lymph # (Auto) Boyd # (Auto) Eos # (Auto) Baso # (Auto) Abs Immat Gran (auto) Absolute Neuts (auto) Absolute Nucleated RBC 0.000 Nucleated RBC % (auto) 0.0 Neutrophils % (Manual) Band Neutrophils % Lymphocytes % (Manual) Monocytes % (Manual) Eosinophils % (Manual) Abs Neuts (Manual) Lymphocytes # (Manual) Monocytes # (Manual) Eosinophils # (Manual) Platelet Estimate Plt Morphology Comment RBC Morphology Hypochromasia Macrocytosis Tear Drop Cells Ovalocytes Acanthocytes (Spur) Anion Gap 13 Estim Creat Clear Calc 76.1 Estimated GFR > 60 POC Glucose 130 H Random Glucose Fasting Glucose 116 H Calcium 7.8 L Total Bilirubin Direct Bilirubin AST ALT Alkaline Phosphatase Troponin I High Sens B-Natriuretic Peptide Total Protein Albumin Lipase Urine Color Urine Appearance Urine pH Ur Specific [place] Urine Protein Urine Glucose (UA) Urine Ketones Urine Blood Urine Nitrite Ur Leukocyte Esterase Urine RBC Urine WBC Ur Squamous Epith Cells Urine Bacteria Granular Casts Urine Mucus Stool Occult Blood COVID-19 ([facility]) COVID-19 Clin Com Blood Type Antibody Screen Crossmatch 07/14/21 07:52 MCV MCH MCHC RDW Plt Count MPV Immature Gran % (Auto) Neut % (Auto) Lymph % (Auto) Boyd % (Auto) Eos % (Auto) Baso % (Auto) Lymph # (Auto) Boyd # (Auto) Eos # (Auto) Baso # (Auto) Abs Immat Gran (auto) Absolute Neuts (auto) Absolute Nucleated RBC Nucleated RBC % (auto) Neutrophils % (Manual) Band Neutrophils % Lymphocytes % (Manual) Monocytes % (Manual) Eosinophils % (Manual) Abs Neuts (Manual) Lymphocytes # (Manual) Monocytes # (Manual) Eosinophils # (Manual) Platelet Estimate Plt Morphology Comment RBC Morphology Hypochromasia Macrocytosis Tear Drop Cells Ovalocytes Acanthocytes (Spur) Anion Gap Estim Creat Clear Calc Estimated GFR POC Glucose 112 Random Glucose Fasting Glucose Calcium Total Bilirubin Direct Bilirubin AST ALT Alkaline Phosphatase Troponin I High Sens B-Natriuretic Peptide Total Protein Albumin Lipase Urine Color Urine Appearance Urine pH Ur Specific [place] Urine Protein Urine Glucose (UA) Urine Ketones Urine Blood Urine Nitrite Ur Leukocyte Esterase Urine RBC Urine WBC Ur Squamous Epith Cells Urine Bacteria Granular Casts Urine Mucus Stool Occult Blood COVID-19 ([facility]) COVID-19 Clin Com Blood Type Antibody Screen Crossmatch Assessment and Plan (1) Multiple myeloma: Status: Acute (2) Thrombocytopenia: Status: Acute Plan 76M presented with pancytopenia and weakness multiple myeloma complicated by pancytopenia and weakness transfuse PRBC and platelets for 2nd time today monitor CBC Dr. Ellis following, to do BM biopsy while inpatient physical deconditioning Physical therapy evaluation paroxysmal atrial fibrillation continue Toprol and diltiazem, Coumadin on hold for thrombocytopenia hypertension Cardizem and Toprol diabetes hold metformin, insulin sliding scale BPH Flomax DVT prophylaxis -mechanical due to thrombocytopenia The patient will need overnight hospital stay for further evaluation of bleeding risk, pancytopenia given his high risk of decompensation and need for further transfusion. Quality Stroke Does the patient have a stroke diagnosis?: No VTE Prior VTE?: No VTE Risk Level:: Medical - moderate - high VTE Device Contraindication: N/A - Device Ordered VTE Drug Contraindication: Treatment Not Tolerated
[2021-07-14 13:28] LABS: Glucose, Whole Blood 118 mg/dL (60-115)
--- NOTE | 2021-07-14 16:00 | MHC.SL.SWA ---
Speech Pathologist Impression: Oral phase dysphagia Risk of Aspiration Due to: Medically fragile Dysphasia Diet Status: Downgrade Liquid Consistency and Strategies for Safe Swallow: Liquid Intake Recommendation: Thin Liquid Intake Strategies: Small Sips Solid Food Consistency: Dietary Recommendations: Chopped/Advanced (NDD3) Additional Modifications to Solid Foods: Recommend CHOPPED/ADVANCED (NDD3) solids with sauce/gravy and THIN liquids, with pills WHOLE in PUREE. Patient is recommended TOTAL SUPERVISION to monitor tolerance of PO and provide assistance as needed. Recommend patient to employ strategies to ease mastication and improve clearance- small bites, moisten food, alternate bite of food with sip of liquid, double swallow. Aspiration precautions apply. Diet order in Expanse updated by CYTOGENETIC TECHNICIAN. Discussed with RN in person while in ED overflow. Notified MD and RD via [place]. Oral Medication Intake: Whole with Puree Please contact the pharmacy regarding appropriate crushable or liquid drug formulations that are available whenever modified delivery is recommended. Compensatory Strategies and Precautions to be Taken for Safe Swallow: Sitting Upright (90 deg) Double Swallow Small Bites and Sips Alternate Liquids/Solids Rate of Ingestion Change Oral Check Supervision While Eating and Drinking for Safe Swallow: Total Supervision (1:1) Foods to Avoid: tough, dry foods Swallowing Recommended Treatments: Compens. Strategy Educat. Recommendation for Speech: Inpatient Speech Therapy Comment: CYTOGENETIC TECHNICIAN will continue to follow Frequency/Duration: M-F during inpatient stay Rfid Systems Architect Clinican/Clinical Fellow: No Supervisory Statement: I have reviewed and agree with the student/clinical fellow's documentation: N/A Speech Language Pathologist: Amanda Mixon M.A., CCC-CYTOGENETIC TECHNICIAN
[2021-07-14 16:15] LABS: Glucose, Whole Blood 138 mg/dL (60-115)
[2021-07-14 20:53] LABS: Glucose, Whole Blood 110 mg/dL (60-115)
[2021-07-14] MEDS: Mirtazapine 15 MG TABLET PO (21:21)
[2021-07-14] MEDS: Tamsulosin HCL 0.4 MG CAPSULE PO (21:21)
[2021-07-15] VITALS (7 sets, daily range): BP systolic 121–151; BP diastolic 59–67; PULSE 73–84; RESP 16–18; TEMP 36.3–36.9; O2SAT 95–99
[2021-07-15] MEDS: Omeprazole 20 MG CAPSULE.DR PO (05:54)
[2021-07-15 06:46] LABS: Hematocrit 26.3 % (42.0-52.0); Mean Corpuscular HGB Conc 34.2 g/dl (31.0-36.0); Mean Corpuscular Hemoglobin 32.6 pg (27.0-33.0); Mean Corpuscular Volume 95.3 fL (80.0-98.0); Mean Platelet Volume 10.5 fL (9.4-12.4); Red Blood Count 2.76 X10*6/uL (4.60-5.80); Red Cell Distribution Width 17.5 % (11.0-16.0)
[2021-07-15 06:52] LABS: Platelet Count 27 X10*3/uL (160-400); White Blood Count 1.6 X10*3/uL (4.8-10.8)
[2021-07-15 07:09] LABS: Anion Gap 12 (12-20); Blood Urea Nitrogen 15 mg/dL (9-16); Calcium 7.6 mg/dL (8.4-10.2); Carbon Dioxide 21 mmol/L (22-29); Chloride 112 mmol/L (96-108); Creatinine Clr Calc Pharmacy 75.1; Estimated Glomerular Filt Rate > 60; Glucose Random 105 mg/dL (60-115); Potassium 3.5 mmol/L (3.3-5.1); Sodium 141 mmol/L (135-145)
[2021-07-15 07:43] LABS: Glucose, Whole Blood 105 mg/dL (60-115)
[2021-07-15] MEDS: Primidone 50 MG TABLET 100 MG PO (08:34)
[2021-07-15] MEDS: Metoprolol Succinate ER 25 MG TAB.ER.24H PO (08:34)
[2021-07-15] MEDS: dilTIAZem HCL CD 180 MG CAP.ER.24H PO (08:34)
[2021-07-15] MEDS: Donepezil HCl 10 MG TABLET PO (08:34)
[2021-07-15] MEDS: 0.9 % Sodium Chloride Flush 3 ML SYRINGE IVFLUSH ×3 (08:35→20:30)
[2021-07-15] MEDS: Megestrol Acetate 400 MG/10 ML ORAL.SUSP PO ×2 (08:35→20:30)
--- NOTE | 2021-07-15 08:39 | P.CDIC_ITS ---
CDI Concurrent Query Documentation Clarification: PHYSICIAN'S DOCUMENTATION REQUEST Date of Query: 07/15/21 0839 Patient Name: Tonny Hernadez Admit Date: 07/14/21 Dear Doctor, A review of the medical record indicates additional documentation may be indicated. Please review below and update the documentation accordingly. Clinical Indicators: Risk Factors/Clinical Indicators/Treatments Nutrition notes: Pressure injury Stage II coccyx. Increased nutritional risk R/T pressure injury, recommend 2200 DM to increase Kcals, recommend adding Ensure TID to promote wound healing. Based on the above, could you please provide, in the Progress Notes, further information regarding the ulcer/wound: Coccyx: * If a pressure ulcer/injury, please also include the stage* of the ulcer: * Stage 1 - Skin intact, non-blanchable redness * Stage 2 - Partial thickness loss of dermis, includes intact or open blister * Stage 3 - Full thickness tissue not including bone, tendon, or muscle * Other * Unable to determine *Source: National Pressure Ulcer Advisory Panel (NPUAP) Use of terms such as suspected, likely, concern for, or probable (associated with a specific diagnosis that is being evaluated, monitored, or treated as if it exists) are acceptable and can be coded in the inpatient setting, when documented at the time of discharge. Thank you, Tova Sharpe [facility], CDIS Extension: [phone] Please use your independent medical judgment in providing your response. THIS QUERY IS PART OF THE PERMANENT MEDICAL RECORD Provider Response: Other Other Diagnosis: Pressure injury Stage II coccyx.
[2021-07-15] MEDS: oxyCODONE HCl Immed Release 5 MG TABLET 10 MG PO ×2 (08:45→15:37)
--- NOTE | 2021-07-15 09:56 | PC.NURSE ---
Skin/wound assessment completed today. Patient has a healing stage 2 pressure injury to sacrum with blanchable redness to surrounding skin. Scattered bruising on bilateral arms.
--- NOTE | 2021-07-15 10:25 | HO.PM.IMPN ---
Subjective Subjective Date of Service: 07/15/21 Interval History: the patient was seen and evaluated this morning Laying in bed, feels better than before Platelets and WBCs still significantly low but stable Hemoglobin improved to 9 no reported bleeding Systemic review: No fever, chills but reports generalized weakness No chest pain, palpitation No shortness of breath or coughing No abdominal pain, nausea or vomiting No urinary symptoms No any rash or wounds Physical Exam Vital Signs: Vital Signs: Last Vital Signs Temp 98.5 F 07/15/21 07:37 Pulse 78 07/15/21 08:49 Resp 18 07/15/21 07:37 BP 134/59 L 07/15/21 08:49 Pulse Ox 97 07/15/21 08:49 BMI result Body Mass Index 27.1 Const: Other: Constitutional : Alert, oriented, not in distress Neck : Normal inspection, Supple Cardiovascular : RRR, S1 S2, no lower extremity edema Respiratory : Fair bilateral air entry, no crackles, wheezes or rhonchi Gastrointestinal: soft, lax, Normal bowel sounds, Non tender Skin : Warm, Dry Neurological : Alert & oriented x3, No focal deficit Objective Data Active Medications Acetaminophen (Acetaminophen 325 Mg Tablet) 650 mg PO Q6H PRN PRN Reason: Pain, Mild (Pain Scale 1-3) Brimonidine Tartrate (Brimonidine Tartrate 0.2% Oph 5 Ml Bottle) 1 drop EYE-LEFT BID [facility] Last Admin: 07/15/21 08:35 Dose: Not Given Documented by: BREANA Non-Admin Reason: Med Not Available Dextrose (Dextrose 50 % 25 Gm/50 Ml Syringe) 25 gm IVPUSH Q15M PRN; Protocol PRN Reason: per Hypoglycemia Standing Ord. Diltiazem HCl (Diltiazem Hcl Cd 180 Mg Cap.Er.24h) 180 mg PO DAILY [facility]; Protocol Last Admin: 07/15/21 08:34 Dose: 180 mg Documented by: BREANA Donepezil HCl (Donepezil Hcl 10 Mg Tablet) 10 mg PO DAILY [facility] Last Admin: 07/15/21 08:34 Dose: 10 mg Documented by: BREANA Glucose (Glucose Gel 15 Gm Gel..Gram.) 15 gm PO Q15M PRN; Protocol PRN Reason: per Hypoglycemia Standing Ord. Insulin Human Lispro (Insulin Lispro 100 Unit/Ml 3 Ml Vial) 0 unit SUBCUT QIDACHS [facility]; Protocol Last Admin: 07/15/21 07:44 Dose: Not Given Documented by: BREANA Non-Admin Reason: No Insulin Coverage Latanoprost (Latanoprost 0.005 % Ophth Myra 2.5 Ml Drops) 1 drop EYE-RIGHT BEDTIME [facility] Last Admin: 07/14/21 22:17 Dose: Not Given Documented by: LORAINE Non-Admin Reason: Med Not Available Megestrol Acetate (Megestrol Acetate 400 Mg/10 Ml Oral.Susp) 400 mg PO BID [facility] Last Admin: 07/15/21 08:35 Dose: 400 mg Documented by: BREANA Metoprolol Succinate (Metoprolol Succinate Er 25 Mg Tab.Er.24h) 25 mg PO DAILY [facility]; Protocol Last Admin: 07/15/21 08:34 Dose: 25 mg Documented by: BREANA Mirtazapine (Mirtazapine 15 Mg Tablet) 15 mg PO BEDTIME [facility] Last Admin: 07/14/21 21:21 Dose: 15 mg Documented by: LORAINE Morphine Sulfate (Morphine Sulfate 4 Mg/Ml Cartridge) 4 mg IVPUSH Q4H PRN; Protocol PRN Reason: Pain, Severe (Pain Scale 7-10) Omeprazole (Omeprazole 20 Mg Capsule.Dr) 20 mg PO DAILY@0630 [facility] Last Admin: 07/15/21 05:54 Dose: 20 mg Documented by: LORAINE Oxycodone HCl (Oxycodone Hcl Immed Release 5 Mg Tablet) 10 mg PO Q6H PRN PRN Reason: Pain, Moderate (Pain Scale 4-6 Last Admin: 07/15/21 08:45 Dose: 10 mg Documented by: BREANA Pharmacy Consult (Consult Rx Perform Med Rec) 1 each MISCELLANE ONCE PRN PRN Reason: Consult order Primidone (Primidone 50 Mg Tablet) 100 mg PO DAILY [facility] Last Admin: 07/15/21 08:34 Dose: 100 mg Documented by: BREANA Sodium Chloride (0.9 % Sodium Chloride Flush 3 Ml Syringe) 3 ml IVFLUSH QSHIFT [facility] Last Admin: 07/15/21 08:35 Dose: 3 ml Documented by: BREANA Tamsulosin HCl (Tamsulosin Hcl 0.4 Mg Capsule) 0.4 mg PO BEDTIME [facility] Last Admin: 07/14/21 21:21 Dose: 0.4 mg Documented by: LORAINE Labs CBC & Chem 7: 07/15/21 05:50 07/15/21 05:50 Labs: Laboratory Results - last 24 hr 07/13/21 07/14/21 07/14/21 14:12 13:19 15:51 MCV MCH MCHC RDW Plt Count MPV Absolute Nucleated RBC Nucleated RBC % (auto) Anion Gap Estim Creat Clear Calc Estimated GFR POC Glucose 118 H 138 H Random Glucose Calcium Blood Type AB Positive Antibody Screen NEGATIVE Crossmatch See Detail 07/14/21 07/15/21 07/15/21 20:40 05:50 05:50 MCV 95.3 MCH 32.6 MCHC 34.2 RDW 17.5 H Plt Count 27 L MPV 10.5 Absolute Nucleated RBC 0.000 Nucleated RBC % (auto) 0.0 Anion Gap 12 Estim Creat Clear Calc 75.1 Estimated GFR > 60 POC Glucose 110 Random Glucose 105 D Calcium 7.6 L Blood Type Antibody Screen Crossmatch 07/15/21 07:35 MCV MCH MCHC RDW Plt Count MPV Absolute Nucleated RBC Nucleated RBC % (auto) Anion Gap Estim Creat Clear Calc Estimated GFR POC Glucose 105 Random Glucose Calcium Blood Type Antibody Screen Crossmatch Assessment and Plan (1) Thrombocytopenia: Status: Acute (2) Multiple myeloma: Status: Acute (3) Pancytopenia: Status: Acute Plan 76M presented with pancytopenia and weakness multiple myeloma complicated by pancytopenia and weakness transfuse 3 PRBC and 2 platelets with Hb of 9 and PLT of [address] Ellis following, to do BM biopsy today physical deconditioning Physical therapy evaluation paroxysmal atrial fibrillation continue Toprol and diltiazem, Coumadin on hold for thrombocytopenia hypertension Cardizem and Toprol diabetes hold metformin, insulin sliding scale BPH Flomax DVT prophylaxis -mechanical due to thrombocytopenia The patient will need overnight hospital stay for further evaluation of bleeding risk, pancytopenia given his high risk of decompensation and need for further transfusion. Quality Stroke Does the patient have a stroke diagnosis?: No VTE Prior VTE?: No VTE Risk Level:: Medical - moderate - high VTE Device Contraindication: N/A - Device Ordered VTE Drug Contraindication: Treatment Not Tolerated
[2021-07-15 11:40] LABS: Glucose, Whole Blood 132 mg/dL (60-115)
--- NOTE | 2021-07-15 11:55 | MHC.SL.SWA ---
Speech Pathologist Impression: Risk of Aspiration Due to: Dysphasia Diet Status: Continue diet of Chopped/Advanced (NDD3) w/ Thin Liquids, Pills Whole w/Liquid. Pt will need assistance at every meal to assure that tray is set up, food is accessible, gravies or sauces are added, and may need assistance to manage food/drink. Continue to monitor for toleration, observed for aspiration signs. Liquid Consistency and Strategies for Safe Swallow: Liquid Intake Recommendation: Thin Liquid Intake Strategies: Small Sips Solid Food Consistency: Dietary Recommendations: Chopped/Advanced (NDD3) Additional Modifications to Solid Foods: Add additional sauces or gravies, alternate solids w/sips of liquid. Oral Medication Intake: Whole with Puree Please contact the pharmacy regarding appropriate crushable or liquid drug formulations that are available whenever modified delivery is recommended. Compensatory Strategies and Precautions to be Taken for Safe Swallow: Sitting Upright (90 deg) Small Bites and Sips Alternate Liquids/Solids Rate of Ingestion Change Supervision While Eating and Drinking for Safe Swallow: Total Supervision (1:1) Foods to Avoid: tough, dry foods Swallowing Recommended Treatments: Compens. Strategy Educat. Recommendation for Speech: Inpatient Speech Therapy: Pt seen this a.m. for toleration of recommended diet, re-assessment of swallow. Pt was awake, pleasant to interact with, fully oriented and conversationally apt. Pt reported the swallowing is o.k. and that he had breakfast this a.m. without any difficulty but did not find it very appetizing. Pt was observed taking straw sips of liquid, taking single sips, containing bolus well orally before initiating swallow phase, w/ no clinical signs of aspiration. Pt also observed taking cup sip of thin liquid independently, w/ oral and pharyngeal phase of swallow WNL. Pt took a bite of cracker combined w/ pudding and had a slightly prolonged period of mastication, followed by pharyngeal phase of swallow wnl. Pt requested and took sip of liquid after swallow of food consistency. Pt is tolerating recommended consistencies of Chopped/Advanced (NDD3) w/ Thin Liquids, recommend continuation of these diet consistencies, w/ Pills whole w/liquid Comment: BID MANAGER will continue to follow Frequency/Duration: M-F during inpatient stay Date Range for Service Req: Timeline to reassess: Director It Project Clinican/Clinical Fellow: No Supervisory Statement: I have reviewed and agree with the student/clinical fellow's documentation: N/A Speech Language Pathologist: Laila Weinberg M.A., [facility]-BID MANAGER
--- NOTE | 2021-07-15 13:17 | MHC.CLN ---
Addendum entered by Ceci Polk, NEEMA 07/15/21 13:19: NOTED PT WITH 7% NONSIGNIFICANT WT LOSS X 6 MONTHS PREVIOUS WT HX REVEALS 90.1KG (11/03/20) Original Note: RE: CONSULT PT WITH INCREASED NUTRITION RISK R/T PRESSURE INJURY PO INTAKE 50/100% X 2 MEALS DIET RX: 2200DM CHOPPED-APPROPRIATE PT RECEIVING ENSURE TID TO INCREASE KCALS AND PROMOTE WOUND HEALING SUPP TO PROVIDE 1050KCALS, 60G PROTEIN MONITOR PO INTAKE CLOSELY
[2021-07-15 13:49] LABS: Bone Marrow SEE SEPARATE REPORT
--- NOTE | 2021-07-15 13:51 | PM.HEMONCBM ---
Bone Marrow Aspiration - Bone Marrow Aspiration Procedure:: *Service Date: [07/15/21] right posterior superior iliac crest bone marrow and biopsy Pre Op Diagnosis:: myeloma Post Op Diagnosis:: myeloma Surgeon:: mauro bell md Anesthesia:: local lidocaine Consent:: Informed consent obtained from the patient for the procedure. Pros and cons of biopsy explained. The patient was willing to proceed with the procedure under local anesthesia. Procedure in Detail:: *Service Date: [_Mis Current Date] *Procedure: [] *Pre Op Dx: [] *Post Op Dx: [] *Surgeon: [f_Current User] The patient was positioned [] and the [right] posterior superior iliac spine prepped and draped. Under aseptic precautions, [] ml of [] lidocaine used for local anesthesia. With the Jamshidi needle, [] of aspirate and [] core biopsy obtained without any complications. The patient tolerated the procedure well. Bandage was applied and patient was positioned on [] back for 10 to 15 minutes after the procedure. The patient was advised to call us if [] develops any pain or swelling at the surgical site. Follow up in 2 weeks.
--- NOTE | 2021-07-15 15:07 | MHC.CM.PN ---
MET WITH PATIENT'S (PER REQUEST) SHE IS NOW UPDATED ON PLAN FOR DISCHARGE, [facility] OFFERING RESTART OF SERVICES THIS MONDAY, AND CASE MANAGEMENT ARRANGING FOR AMBULANCE TRANSPORTATION HOME. WILL BE BACK TOMORROW MORNING.
[2021-07-15 16:07] LABS: Glucose, Whole Blood 114 mg/dL (60-115)
[2021-07-15 20:10] LABS: Glucose, Whole Blood 121 mg/dL (60-115)
[2021-07-15] MEDS: Tamsulosin HCL 0.4 MG CAPSULE PO (20:30)
[2021-07-15] MEDS: Mirtazapine 15 MG TABLET PO (20:30)
[2021-07-15] MEDS: Latanoprost 0.005 % Ophth Sol 2.5 ML DROPS 1 DROP EYE-RIGHT (22:47)
[2021-07-15] MEDS: Brimonidine Tartrate 0.2% Oph 5 ML BOTTLE 1 DROP EYE-LEFT (22:47)
[2021-07-15 23:26] LABS: Anion Gap 11 (12-20); Blood Urea Nitrogen 14 mg/dL (9-16); Calcium 7.5 mg/dL (8.4-10.2); Carbon Dioxide 20 mmol/L (22-29); Chloride 112 mmol/L (96-108); Creatinine Clr Calc Pharmacy 81.1; Estimated Glomerular Filt Rate > 60; Glucose Random 111 mg/dL (60-115); Magnesium 2.1 mg/dL (1.6-2.6); Potassium 3.5 mmol/L (3.3-5.1); Sodium 139 mmol/L (135-145)
[2021-07-16 04:00] VITALS: BP 142/65; PULSE 80; RESP 18; TEMP 36.9; O2SAT 98
--- NOTE | 2021-07-16 04:08 | PC.NURSE ---
Pt had an 8 beat of Vtach around 2230 on 07/15, pt asymptomatic, Dr. Pink aware, labs ordered.
[2021-07-16] MEDS: Omeprazole 20 MG CAPSULE.DR PO (05:49)
[2021-07-16 06:08] LABS: Hematocrit 28.7 % (42.0-52.0); Hemoglobin 9.8 g/dl (14.0-18.0); Mean Corpuscular HGB Conc 34.1 g/dl (31.0-36.0); Mean Corpuscular Hemoglobin 32.3 pg (27.0-33.0); Mean Corpuscular Volume 94.7 fL (80.0-98.0); PLT CLUMP 1; Red Blood Count 3.03 X10*6/uL (4.60-5.80)
[2021-07-16 06:10] LABS: Mean Platelet Volume 10.4 fL (9.4-12.4)
[2021-07-16 06:13] LABS: White Blood Count 1.5 X10*3/uL (4.8-10.8)
[2021-07-16 06:14] LABS: Platelet Count 22 X10*3/uL (160-400)
[2021-07-16 07:30] VITALS: BP 147/68; PULSE 87; RESP 18; TEMP 36.2; O2SAT 97
[2021-07-16 07:46] LABS: Glucose, Whole Blood 121 mg/dL (60-115)
[2021-07-16] MEDS: Megestrol Acetate 400 MG/10 ML ORAL.SUSP PO (08:43)
[2021-07-16] MEDS: 0.9 % Sodium Chloride Flush 3 ML SYRINGE IVFLUSH (08:43)
[2021-07-16] MEDS: oxyCODONE HCl Immed Release 5 MG TABLET 10 MG PO ×2 (08:43→15:30)
[2021-07-16] MEDS: Donepezil HCl 10 MG TABLET PO (08:43)
[2021-07-16] MEDS: dilTIAZem HCL CD 180 MG CAP.ER.24H PO (08:43)
[2021-07-16] MEDS: Primidone 50 MG TABLET 100 MG PO (08:43)
[2021-07-16] MEDS: Metoprolol Succinate ER 25 MG TAB.ER.24H PO (08:43)
[2021-07-16] MEDS: Brimonidine Tartrate 0.2% Oph 5 ML BOTTLE 1 DROP EYE-LEFT (08:46)
--- NOTE | 2021-07-16 11:20 | MHC.CM.PN ---
PATIENT TO RETURN HOME TODAY [facility]IA [facility] 1400 TIME AGREED UPON WITH PATIENT AND (IN ROOM) RN AWARE OF PLAN.
--- NOTE | 2021-07-16 11:24 | PM.DS ---
DS: Providers Provider Date of Service: 07/16/21 Date of admission: 07/14/21 10:25 Primary care physician: Cheko Ellis MD Consults: 07/13/21 15:56 Consult to Hematology / Oncology Routine Consulting Provider: Cheko Ellis Reason for consultation: MM DS: Diagnosis Discharge Diagnosis (1) Thrombocytopenia: Status: Acute (2) Multiple myeloma: Status: Acute (3) Pancytopenia: Status: Acute (4) Symptomatic anemia: Status: Acute DS: Summary Hospital Course Hospital Course: admission note HPI ?68-year-old male with multiple myeloma complicated by pancytopenia presented with worsening pancytopenia and weakness.? Patient was discharged from [facility] on 07/09/2021 after hospitalization for L5 vertebral fracture.? Patient was seen by Neurosurgery at that time recommended no intervention.? Patient was able to walk with assistance on day of discharge.? Since then patient has been progressively weaker, on day of presentation patient had labs drawn which revealed pancytopenia with a white blood cell count of 1, hemoglobin 8.7, platelets of 14.? Recommendations were to come to the ED. Hospital course The patient was admitted to the hospital for evaluation of pancytopenia and weakness associated with symptomatic anemia and severe thrombocytopenia requiring 3 units of blood and 2 units of platelet transfusion over the course of hospital stay with improvement of hemoglobin to 9.8 and platelets [id number]. He was evaluated by his oncologist Dr. Ellis who did a bone Otero biopsy and recommended outpatient treatment with new chemotherapy that will be set up to be done as outpatient. suggesting treated with polalidamide or daratumumab or carfilzumab. he was evaluated by Physical therapy who recommended ST are this is home therapy. The patient and preferred to go home with [facility] services. Warfarin will be held for the time being until repeat CBC done and can be restarted by Dr. Ellis when appropriate. Time Spent with Patient Time attestation: Total time spent providing and/or coordinating discharge services: Discharge coordination time: Greater than 30 minutes Quality: Safe Use of Opioids Does Pt have an Active Cancer Diagnosis on the Problem List?: Yes Opioid Measure Date for [facility] Report: 06/16/21 Opioid Measure Time for [facility] Report: 11:31 Quality: Stroke Does the patient have a stroke diagnosis?: No Physical Exam Vital Signs: Vital Signs: Last Vital Signs Temp 97.2 F 07/16/21 07:30 Pulse 87 07/16/21 07:30 Resp 18 07/16/21 07:30 BP 147/68 H 07/16/21 07:30 Pulse Ox 97 07/16/21 07:30 BMI result Body Mass Index 27.1 Const: Other: Constitutional : Alert, oriented, not in distress Neck : Normal inspection, Supple Cardiovascular : RRR, S1 S2, no lower extremity edema Respiratory : Fair bilateral air entry, no crackles, wheezes or rhonchi Gastrointestinal: soft, lax, Normal bowel sounds, Non tender Skin : Warm, Dry Neurological : Alert & oriented x3, No focal deficit DS: Data Data Completed and Pending Pending studies at discharge: Pending at discharge 07/15/21 13:30 Surgical Path [Surgical] [PTH] Routine Labs on day of discharge: Laboratory Results - last 24 hr 07/15/21 07/15/21 07/15/21 11:21 15:42 19:55 WBC RBC Hgb Hct MCV MCH MCHC RDW Plt Count MPV Absolute Nucleated RBC Nucleated RBC % (auto) Sodium Potassium Chloride Carbon Dioxide Anion Gap BUN Creatinine Estim Creat Clear Calc Estimated GFR POC Glucose 132 H 114 121 H Random Glucose Calcium Magnesium 07/15/21 07/16/21 07/16/21 23:00 05:49 07:35 WBC 1.5 L RBC 3.03 L Hgb 9.8 L Hct 28.7 L MCV 94.7 MCH 32.3 MCHC 34.1 RDW 17.0 H Plt Count 22 L MPV 10.4 Absolute Nucleated RBC 0.000 Nucleated RBC % (auto) 0.0 Sodium 139 Potassium 3.5 Chloride 112 H Carbon Dioxide 20 L Anion Gap 11 L BUN 14 Creatinine 0.75 Estim Creat Clear Calc 81.1 Estimated GFR > 60 POC Glucose 121 H Random Glucose 111 Calcium 7.5 L Magnesium 2.1 Discharge Plan Discharge Patient Disposition: Home Health Service Discharge Diagnosis: acute on chronic anemia Thrombocytopenia Referrals: Sander DEVLIN [Outside] - 1 Week Cheko Ellis MD [Primary Care Provider] - 1 Week Discharge Medications: Continued diltiazem HCl 180 mg capsule,extended release 24 hr 180 mg PO QAM 90 Days Qty: 90 3RF brimonidine 0.2 % drops 1 drp ophthalmic-Left BID 0RF donepezil 10 mg tablet 10 mg PO DAILY 0RF metoprolol succinate 50 mg tablet extended release 24 hr 25 mg PO DAILY 0RF oxycodone 10 mg tablet 1 tab PO Q6H PRN (Reason: Pain, Severe) 0RF zoledronic acid 4 mg/5 mL solution 4 mg IV [id number] 0RF omeprazole 20 mg capsule,delayed release(DR/EC) 20 mg PO DAILY 0RF primidone 50 mg tablet 100 mg PO DAILY 0RF tamsulosin 0.4 mg capsule 0.4 mg PO BEDTIME 0RF metformin 500 mg tablet 500 mg PO BID 0RF latanoprost 0.005 % drops 1 drp ophthalmic-Right BEDTIME 0RF lenalidomide 25 mg capsule 25 mg PO DIRECTED 0RF Rx Instructions: 21 DAYS ON, 7 DAYS OFF dexamethasone 2 mg tablet 10 mg PO Q7D 0RF megestrol 400 mg/10 mL (40 mg/mL) suspension 400 mg PO BID 0RF acetaminophen 500 mg tablet 500 mg PO Q6H PRN (Reason: Pain, Mild) 0RF Velcade 3.5 mg recon soln 3.5 mg IV Q7D 0RF acetaminophen-codeine 300-15 mg tablet 1 tab PO Q6H PRN (Reason: Pain) 0RF mirtazapine 15 mg tablet 15 mg PO BEDTIME 0RF Held warfarin 5 mg tablet 5 mg PO DAILY 0RF Hold Instructions: until clear to use it by Dr. Ellis Protocol: Dose Management Condition: Monday (Week One) Dose/Route: 5 mg Instruction: 1 x 5 mg tablet Condition: Monday Dose/Route: 7.5 mg Instruction: 1.5 x 5 mg tablets Condition: Monday Dose/Route: 5 mg Instruction: 1 x 5 mg tablet Condition: Monday Dose/Route: 5 mg Instruction: 1 x 5 mg tablet Condition: Dose/Route: 5 mg Instruction: 1 x 5 mg tablet Condition: Monday Dose/Route: 5 mg Instruction: 1 x 5 mg tablet Condition: Monday Dose/Route: 5 mg Instruction: 1 x 5 mg tablet Condition: Monday (Week Two) Dose/Route: 5 mg Instruction: 1 x 5 mg tablet Condition: Monday Dose/Route: 5 mg Instruction: 1 x 5 mg tablet Condition: Monday Dose/Route: 5 mg Instruction: 1 x 5 mg tablet Condition: Monday Dose/Route: 5 mg Instruction: 1 x 5 mg tablet Condition: Dose/Route: 5 mg Instruction: 1 x 5 mg tablet Condition: Monday Dose/Route: 5 mg Instruction: 1 x 5 mg tablet Condition: Monday Dose/Route: 5 mg Instruction: 1 x 5 mg tablet Protocol Text: Adjustment Start Date: Monday06/29/21 INR Value: 3.7 INR Date: 06/29/21 Recheck Date: 07/09/21 Discharge Orders: Discharge Order (Routine); Ordered 07/16/21 Ordered By: Denita Freedman Diet: advance to usual diet Activity on Discharge: As tolerated Stand Alone Forms: Patient Portal Discharge page Other Ambulatory Orders: Complete Blood Count no Diff (Routine) Timeframe: 3 Days Facility: [facility] - Location: Laboratory Ordered By: Denita Freedman Care Plan Goals: Read below Health Concerns: Read below Plan of Treatment: Read below Assessment: you were admitted to the hospital for evaluation of weakness as your blood work was consistent with pancytopenia requiring transfusion of 3 units of blood and 2 units of platelets with good response as your hemoglobin level improved above 9 and platelets remain above 20,000. you were evaluated by Dr. Ellis who did a bone Otero biopsy and planning on starting new chemotherapy. Hold warfarin for the time being and discussed with Dr. Ellis 1 to restarted To follow-up with Oncology as outpatient for your new medications and infusion. To repeat blood test next week
[2021-07-16 11:33] VITALS: BP 119/53; PULSE 82; RESP 18; TEMP 36.3; O2SAT 97
[2021-07-16 11:36] LABS: Glucose, Whole Blood 141 mg/dL (60-115)
[2021-07-16] MEDS: Acetaminophen 325 MG TABLET 650 MG PO (11:36)
== END 2021-07-16 15:15 | disposition home health service (06) | DRG 841 ==
LOC: HO.ED 15:16 → HO.EDOVER 16:07 → HO.S3 07-14 15:00
PROVIDERS: Internal Medicine; Pathology Anatomic Pathology & Clinical Pathology; Admitting Provider Internal Medicine; Emergency Provider Emergency Medicine; PCP Internal Medicine Medical Oncology; Visit Provider Student in an Organized Health Care Education/Training Program
DX: C90.00 Multiple myeloma not having achieved remission (principal); D61.818 Other pancytopenia; N40.1 Benign prostatic hyperplasia with lower urinary tract symptoms; R33.8 Other retention of urine; L89.152 Pressure ulcer of sacral region, stage 2; I10 Essential (primary) hypertension; E11.9 Type 2 diabetes mellitus without complications; I48.0 Paroxysmal atrial fibrillation; Z20.822 Contact with and (suspected) exposure to COVID-19; Z87.891 Personal history of nicotine dependence; Z79.01 Long term (current) use of anticoagulants; Z79.84 Long term (current) use of oral hypoglycemic drugs; Z79.899 Other long term (current) drug therapy
CPT/HCPCS: 36415; 36430; 71045; 80048; 80053; 80076; 81001; 82272; 82947; 83690; 83735; 83880; 84484; 85007; 85027; 85097; 85610; 86850; 86900; 86901; 86923; 87635; 88184; 88185; 88237; 88264; 88280; 88305; 88311; 88313; 88341; 88342; 88344; 88374; 92526; 92610; 93005; 97110; 97162; 99218; 99285; P9016; P9035; P9073

== ENCOUNTER 2021-07-20 11:52 | Outpatient (REF) | payer MEDICARE, SELFPAY ==
[2021-07-20 12:10] LABS: Hematocrit 26.2 % (42.0-52.0); Mean Corpuscular HGB Conc 34.4 g/dl (31.0-36.0); Mean Corpuscular Hemoglobin 32.6 pg (27.0-33.0); Mean Corpuscular Volume 94.9 fL (80.0-98.0); Red Blood Count 2.76 X10*6/uL (4.60-5.80); Red Cell Distribution Width 16.1 % (11.0-16.0)
[2021-07-20 12:12] LABS: White Blood Count 1.2 X10*3/uL (4.8-10.8)
[2021-07-20 12:43] LABS: Band Neutrophils Percent 1 % (3-5); Eosinophils Absolute Manual 0.1 X10*3/uL (0.0-0.4); Eosinophils Percent Manual 5 % (0-4); Lymphocytes Absolute Manual 0.3 X10*3/uL (1.2-4.9); Lymphocytes Percent Manual 26 % (20-40); Monocytes Absolute Manual 0.2 X10*3/uL (0.1-1.2); Monocytes Percent Manual 19 % (2-11); Neutrophils Absolute Manual 0.6 X10*3/uL (2.0-8.3); Neutrophils Percent Manual 49 % (45-73)
[2021-07-20 12:45] LABS: Acanthocytes 1+ (0-2) /OIF; Macrocytosis 1+ (5-14) /OIF; Platelet Estimate DECREASED (NORMAL); Platelet Morphology Comment NORMAL; RBC Morphology NOTED
[2021-07-20 12:46] LABS: Ovalocytes 1+ (5-14) /OIF; Tear Drop Cells 2+ (3-5) /OIF
[2021-07-20 13:27] LABS: Platelet Count 7 X10*3/uL (160-400)
== END 2021-07-20 11:53 | disposition home or self-care (01) ==
LOC: HO.HVNA 11:52
PROVIDERS: Visit Provider Internal Medicine Medical Oncology
DX: C90.00 Multiple myeloma not having achieved remission (principal); K92.2 Gastrointestinal hemorrhage, unspecified
CPT/HCPCS: 36415; 85007; 85025; 85027

== ENCOUNTER 2021-07-23 07:59 | Observation (INO) | payer MEDICARE, SELFPAY ==
[2021-07-23] VITALS (11 sets, daily range): BP systolic 118–151; BP diastolic 60–80; PULSE 86–117; RESP 14–19; TEMP 36.4–37.1; O2SAT 98–100; BMI 20.2
--- NOTE | ~2021-07-23 | CT_ITS ---
EXAMINATION: CT HEAD WITHOUT CONTRAST CLINICAL INFORMATION: Platelets less than 10,000 COMPARISON: July 08, 2021 and November 02, 2020 TECHNIQUE: Contiguous axial imaging was performed from the skull base to vertex without intravenous administration of contrast. This CT examination was performed using dose optimization techniques as appropriate, variously including the following: *Automated exposure control *Adjustment of mA and/or kV according to patient size (this includes techniques or standardized protocols for targeted exams where dose is matched to indication/reason for exam; i.e. extremities or head) *Use of iterative reconstruction technique DLP: 796 mGy-cm FINDINGS: There is no evidence of acute intracranial hemorrhage or territorial infarction. No abnormal mass effect or midline shift is seen. Meng to white matter differentiation is well preserved. No extra-axial fluid collections are identified. The ventricles, sulci, and cisterns are prominent consistent with diffuse volume loss. There is periventricular white matter low density consistent with microangiopathy. Carotid, Vertebral, and basilar artery calcifications are present. There are numerous lytic lesions within the skull consistent with multiple myeloma. There is opacification of the maxillary sinuses with the appearance of acute on chronic sinusitis as well as air-fluid level within the left sphenoid sinus mastoid sinus disease is seen left greater than right as well as opacification of the middle ear. CT/CT head/brain wo con IMPRESSION: No acute intracranial pathology. Generalized atrophy and small vessel disease. No significant change from previous study.
--- NOTE | 2021-07-23 08:10 | ED_ITS ---
HPI - Recheck/Abnormal Lab/Rx General Chief Complaint: General Medical Stated Complaint: abnormal labs Time Seen by Provider: 07/23/21 08:08 Source: patient and old records reviewed Mode of arrival: EMS Limitations: no limitations History of Present Illness HPI narrative: 07/20 plt 7 - hx of myeloma refractory to treatment options being discussed with Dr. Ellis he denies any bleeding or falls states he doesn't get out of bed, EMS noted he sneezed and a clot came out of his nose MD complaint: abnormal lab Initial visit (ago): day(s) (3) Initial visit for: other (labs) Returns today for: called because of abnormal lab/test Description of abnormal result: plts 7 Symptoms since prior visit: no new symptoms Context: called for abnormal lab result Associated symptoms: none Treatments prior to arrival: other (hx of multiple transfusions in the past) Related Data Home Medications Medication Instructions Recorded Confirmed metformin 500 mg tablet 500 mg PO BID 04/16/20 07/23/21 primidone 50 mg tablet 100 mg PO DAILY 04/16/20 07/23/21 tamsulosin 0.4 mg capsule 0.4 mg PO BEDTIME 04/16/20 07/23/21 zoledronic acid 4 mg/5 mL 4 mg IV QMONTH 04/16/20 07/23/21 intravenous solution latanoprost 0.005 % eye drops 1 drp OPHTHALMIC-RIGHT BEDTIME 05/07/20 07/23/21 brimonidine 0.2 % eye drops 1 drp OPHTHALMIC-LEFT BID 11/02/20 07/23/21 donepezil 10 mg tablet 10 mg PO DAILY 01/07/21 07/23/21 mirtazapine 15 mg tablet 15 mg PO BEDTIME 05/28/21 07/23/21 megestrol 400 mg/10 mL (40 mg/mL) 400 mg PO BID 06/29/21 07/23/21 oral suspension metoprolol succinate 50 mg 25 mg PO BEDTIME 07/13/21 07/23/21 tablet,extended release 24 hr omeprazole 10 mg capsule,delayed 10 mg PO DAILY 07/23/21 07/23/21 release oxycodone 5 mg tablet 5 mg PO Q6H PRN 07/23/21 07/23/21 Allergies Allergy/AdvReac Type Severity Reaction Status Date / Time No Known Allergies Allergy Verified 06/29/21 11:38 [No Known Allergies*] Review of Systems Review of Systems: Constitutional : No Weight loss, No Fever, No Chills, pos Fatigue, pos Malaise ENT/Mouth : No sore throat, No Rhinorrhea Eyes: No Eye Pain, No Swelling, No Redness Cardiovascular : No Chest Pain, No SOB, No Dyspnea on Exertion, No Orthopnea, No Edema, No Palpitations Respiratory : No Cough, No Sputum, No Wheezing Gastrointestinal : No Nausea, No Vomiting, No Diarrhea, No Constipation, No abdominal Pain, No Hematochezia, No Melena Genitourinary : No Dysuria, No Urinary Frequency, No Hematuria, Musculoskeletal : No joint pain, No Myalgias, No Joint Swelling Skin : No Skin Lesions, No rash Neuro : pos Weakness, No Numbness, No Dizziness, No Headache Psych : No Anxiety/Panic, No Depression Heme/Lymph: pos Bruising, No Bleeding,No Lymphadenopathy Endocrine : No Polyuria, No Polydipsia All other systems reviewed and are negative [facility] Past Medical History Attestation statement: The following information was validated with the patient. Medical History Anemia BPH (benign prostatic hyperplasia) Diabetes Diabetes mellitus DVT (deep venous thrombosis) Glaucoma HTN (hypertension) Multiple myeloma Multiple myeloma Pancytopenia Paroxysmal atrial fibrillation Paroxysmal atrial fibrillation Thrombocytopenia Urinary retention due to benign prostatic hyperplasia Surgical History H/O cataract removal with insertion of prosthetic lens Family History Family History Son FSGS (focal segmental glomerulosclerosis) Social History Social History Household Members: Spouse Housing: House Do you presently have visiting nurse or other home services: Yes (vna) Alcohol intake: current Alcohol intake frequency: holidays/special occasions only Patient Tobacco Use Status: Former Tobacco user Quit Date: 37 years ago Advance Directives Date on File: 07/14/21 service: No Current occupational status: retired Physical Exam Vital Signs: Vital Signs: Last Vital Signs Temp 98.7 F 07/23/21 15:15 Pulse 107 H 07/23/21 15:15 Resp 18 07/23/21 15:15 BP 129/66 07/23/21 15:15 Pulse Ox 98 07/23/21 15:15 BMI result Body Mass Index 20.2 Appearance: Alert. Oriented X3. No acute distress. Eyes: Pupils equal, round and reactive to light. ENT: Pharynx normal. Atraumatic Neck: Normal inspection. Neck supple. CVS: tachycardic heart rate and rhythm. Pulses normal. Respiratory: No respiratory distress. Breath sounds normal. Abdomen: Soft and non-tender. Skin: Skin warm and dry. Normal skin color. Normal skin turgor. Extremities: 1+ pitting lower extremity edema. bruises varying ages on extremities Neuro: Oriented X 3. No motor deficit. No sensory deficit. MDM - Recheck/Abnormal Lab/Rx MDM Narrative Medical decision making narrative: 76 yo male with hx of afib, DM, HTN, myeloma here with c/o low plts 4/12 at 7 - he denies any falls or bleeding issues. At this time will need labs, transfusions, CT head for spontaneous hemorrhage. Will need admission Lab Data Result diagrams: 07/23/21 08:43 07/23/21 08:43 Labs: Lab Results 07/23/21 07/23/21 07/23/21 Range/Units 08:43 08:43 08:43 WBC 1.1 L (4.8-10.8) X10*3/uL RBC 2.82 L (4.60-5.80) X10*6/uL Hgb 9.0 L (14.0-18.0) g/dl Hct 26.7 L (42.0-52.0) % MCV 94.7 (80.0-98.0) fL MCH 31.9 (27.0-33.0) pg MCHC 33.7 (31.0-36.0) g/dl RDW 15.8 (11.0-16.0) % Plt Count 6 L* (160-400) X10*3/uL MPV 15.5 H (9.4-12.4) fL Immature Gran % (Auto) Cancelled Neut % (Auto) Cancelled Lymph % (Auto) Cancelled [place] % (Auto) Cancelled Eos % (Auto) Cancelled Baso % (Auto) Cancelled Lymph # (Auto) Cancelled [place] # (Auto) Cancelled Eos # (Auto) Cancelled Baso # (Auto) Cancelled Abs Immat Gran (auto) Cancelled Absolute Neuts (auto) Cancelled Absolute Nucleated RBC 0.000 (0.0-0.012) X10*3/uL Nucleated RBC % (auto) 0.0 (0.0-0.2) /100WBC Neutrophils % (Manual) 42 L (45-73) % Band Neutrophils % 3 (3-5) % Lymphocytes % (Manual) 37 (20-40) % Atypical Lymphs % (Man) 5 (0-6) % Monocytes % (Manual) 11 (2-11) % Eosinophils % (Manual) 1 (0-4) % Basophils % (Manual) 1 (0-2) % Abs Neuts (Manual) 0.5 L (2.0-8.3) X10*3/uL Lymphocytes # (Manual) 0.4 L (1.2-4.9) X10*3/uL Atyp Lymphs # (Manual) 0.1 x10*3/uL Monocytes # (Manual) 0.1 (0.1-1.2) X10*3/uL Nucleated RBCs 1 H (0-0) /100WBC Platelet Estimate DECREASED (NORMAL) Large Platelets PRESENT Plt Morphology Comment NOTED RBC Morphology NOTED Macrocytosis 1+ (5-14) /OIF Tear Drop Cells 2+ (3-5) /OIF Ovalocytes 2+ (15-30) /OIF Acanthocytes (Spur) 2+ (3-5) /OIF PT 18.3 H (9.9-13.0) SEC INR 1.6 H (0.9-1.1) APTT 26.4 (24.1-38.0) SEC Sodium 138 (135-145) mmol/L Potassium 4.6 D (3.3-5.1) mmol/L Chloride 106 (96-108) mmol/L Carbon Dioxide 22 (22-29) mmol/L Anion Gap 15 (12-20) BUN 15 (9-16) mg/dL Creatinine 1.07 (0.5-1.4) mg/dL Estim Creat Clear Calc 56.2 Estimated GFR > 60 Random Glucose 232 H D (60-115) mg/dL Calcium 8.2 L D (8.4-10.2) mg/dL Magnesium 1.9 (1.6-2.6) mg/dL Total Bilirubin 1.1 H (0.0-1.0) mg/dL Direct Bilirubin 0.7 H (0.0-0.5) mg/dL AST 14 (5-37) U/L ALT 18 (0-40) U/L Alkaline Phosphatase 71 (39-117) U/L Total Protein 5.4 L (6.5-8.0) g/dL Albumin 3.3 L (3.5-5.0) g/dL COVID-19 ([facility]) (Negative) COVID-19 Clin Com Blood Type Antibody Screen 07/23/21 07/23/21 Range/Units 08:43 08:43 WBC (4.8-10.8) X10*3/uL RBC (4.60-5.80) X10*6/uL Hgb (14.0-18.0) g/dl Hct (42.0-52.0) % MCV (80.0-98.0) fL MCH (27.0-33.0) pg MCHC (31.0-36.0) g/dl RDW (11.0-16.0) % Plt Count (160-400) X10*3/uL MPV (9.4-12.4) fL Immature Gran % (Auto) Neut % (Auto) Lymph % (Auto) [place] % (Auto) Eos % (Auto) Baso % (Auto) Lymph # (Auto) [place] # (Auto) Eos # (Auto) Baso # (Auto) Abs Immat Gran (auto) Absolute Neuts (auto) Absolute Nucleated RBC (0.0-0.012) X10*3/uL Nucleated RBC % (auto) (0.0-0.2) /100WBC Neutrophils % (Manual) (45-73) % Band Neutrophils % (3-5) % Lymphocytes % (Manual) (20-40) % Atypical Lymphs % (Man) (0-6) % Monocytes % (Manual) (2-11) % Eosinophils % (Manual) (0-4) % Basophils % (Manual) (0-2) % Abs Neuts (Manual) (2.0-8.3) X10*3/uL Lymphocytes # (Manual) (1.2-4.9) X10*3/uL Atyp Lymphs # (Manual) x10*3/uL Monocytes # (Manual) (0.1-1.2) X10*3/uL Nucleated RBCs (0-0) /100WBC Platelet Estimate (NORMAL) Large Platelets Plt Morphology Comment RBC Morphology Macrocytosis /OIF Tear Drop Cells /OIF Ovalocytes /OIF Acanthocytes (Spur) /OIF PT (9.9-13.0) SEC INR (0.9-1.1) APTT (24.1-38.0) SEC Sodium (135-145) mmol/L Potassium (3.3-5.1) mmol/L Chloride (96-108) mmol/L Carbon Dioxide (22-29) mmol/L Anion Gap (12-20) BUN (9-16) mg/dL Creatinine (0.5-1.4) mg/dL Estim Creat Clear Calc Estimated GFR Random Glucose (60-115) mg/dL Calcium (8.4-10.2) mg/dL Magnesium (1.6-2.6) mg/dL Total Bilirubin (0.0-1.0) mg/dL Direct Bilirubin (0.0-0.5) mg/dL AST (5-37) U/L ALT (0-40) U/L Alkaline Phosphatase (39-117) U/L Total Protein (6.5-8.0) g/dL Albumin (3.5-5.0) g/dL COVID-19 ([facility]) Negative (Negative) COVID-19 Clin Com See Note Blood Type AB Positive Antibody Screen NEGATIVE ECG Data Attestation: I personally reviewed and interpreted this ECG as follows: ECG interpretation date: 07/23/21 ECG interpretation time: 08:34 Interpretation: Rate: 111 Rhythm: sinus tachycardia [place]: left Normal P waves. Normal MICHAEL. Normal QRS complex. ST T wave : nonspecific, no JEFF qTC: normal prior studies: no acute ischemia The study has been interpreted contemporaneously by me. . Critical Care Time Critical Care Time Critical Care Time: Yes Total Critical Care Time: 35 Attestation: transfusion of platelets, review of records I attest to this time spent taking care of the patient Discharge Plan Discharge Clinical Impression: Thrombocytopenia Neutropenic Qualifiers: Neutropenia type: unspecified Qualified Code(s): D70.9 - Neutropenia, unspecified Patient Disposition: Admitted As Inpatient Interventions: Admission Worksheet (ED) Last Done: 07/23/21 12:46 Discharge Date/Time: 07/23/21 12:00
--- NOTE | 2021-07-23 08:19 | ECG_ITS ---
Test Reason : ABNORMAL LABS Blood Pressure : / mmHG Vent. Rate : 111 BPM Atrial Rate : 111 BPM P-R Int : 122 ms QRS Dur : 092 ms QT Int : 350 ms P-R-T Axes : 022 -02 118 degrees QTc Int : 476 ms Sinus tachycardia with Premature supraventricular complexes and Premature ventricular complexes or Fusion complexes Nonspecific ST and T wave abnormality Abnormal ECG When compared with ECG of 13-JUL-2021 13:59, Fusion complexes are now Present Premature supraventricular complexes are now Present Referred By: Kinza Alan Electronically Signed By:Venkatesh Martinez
[2021-07-23 08:55] LABS: Hematocrit 26.7 % (42.0-52.0); Mean Corpuscular HGB Conc 33.7 g/dl (31.0-36.0); Mean Corpuscular Hemoglobin 31.9 pg (27.0-33.0); Mean Corpuscular Volume 94.7 fL (80.0-98.0); Mean Platelet Volume 15.5 fL (9.4-12.4); Red Blood Count 2.82 X10*6/uL (4.60-5.80); Red Cell Distribution Width 15.8 % (11.0-16.0)
[2021-07-23 08:58] LABS: White Blood Count 1.1 X10*3/uL (4.8-10.8)
[2021-07-23 08:59] LABS: Platelet Count 6 X10*3/uL (160-400)
[2021-07-23 09:00] LABS: INTERNATIONAL NORM RATIO 1.6 (0.9-1.1); Prothrombin Time 18.3 SEC (9.9-13.0)
[2021-07-23 09:03] LABS: Partial Thromboplastin Time 26.4 SEC (24.1-38.0)
--- NOTE | 2021-07-23 09:05 | MHC.CM.ED ---
Received notice from Sheyla at [facility] that patient is active with their agency. Referral made in [employer] so they can follow for d/c needs. [facility] info placed in chart. Continue to monitor for d/c needs.
[2021-07-23 09:08] LABS: COVID-19 Test Negative (Negative); IDNOW Serial# 55D5AD1C
[2021-07-23 09:20] LABS: Atypical Lymph Absolute Manual 0.1 x10*3/uL; Atypical Lymphs Percent Manual 5 % (0-6); Band Neutrophils Percent 3 % (3-5); Basophils Percent Manual 1 % (0-2); Eosinophils Percent Manual 1 % (0-4); Lymphocytes Absolute Manual 0.4 X10*3/uL (1.2-4.9); Lymphocytes Percent Manual 37 % (20-40); Monocytes Absolute Manual 0.1 X10*3/uL (0.1-1.2); Monocytes Percent Manual 11 % (2-11); Neutrophils Absolute Manual 0.5 X10*3/uL (2.0-8.3); Neutrophils Percent Manual 42 % (45-73); Nucleated Red Blood Cells 1 /100WBC (0-0)
[2021-07-23 09:24] LABS: Acanthocytes 2+ (3-5) /OIF; Large Platelet PRESENT; Macrocytosis 1+ (5-14) /OIF; Ovalocytes 2+ (15-30) /OIF; Platelet Estimate DECREASED (NORMAL); Platelet Morphology Comment NOTED; RBC Morphology NOTED; Tear Drop Cells 2+ (3-5) /OIF
[2021-07-23 09:41] LABS: Alanine Aminotransferase 18 U/L (0-40); Albumin Level 3.3 g/dL (3.5-5.0); Alkaline Phosphatase 71 U/L (39-117); Anion Gap 15 (12-20); Aspartate Amino Transferase 14 U/L (5-37); Bilirubin Direct 0.7 mg/dL (0.0-0.5); Bilirubin Total 1.1 mg/dL (0.0-1.0); Blood Urea Nitrogen 15 mg/dL (9-16); Calcium 8.2 mg/dL (8.4-10.2); Carbon Dioxide 22 mmol/L (22-29); Chloride 106 mmol/L (96-108); Creatinine Clr Calc Pharmacy 56.2; Estimated Glomerular Filt Rate > 60; Glucose Random 232 mg/dL (60-115); Magnesium 1.9 mg/dL (1.6-2.6); Potassium 4.6 mmol/L (3.3-5.1); Sodium 138 mmol/L (135-145); Total Protein 5.4 g/dL (6.5-8.0)
--- NOTE | 2021-07-23 09:51 | PHA.MEDREC ---
Pharmacy Consult ? Medication Reconciliation Pharmacy has completed the medication reconciliation. Spoke to pt , Dr. Ellis dc'ed Diltiazem (due to interaction with oxycodone per ) and dced warfarin for now. Chemo on hold.
--- NOTE | 2021-07-23 10:43 | PM.IMHP ---
History of Present Illness Date of Service: 07/23/21 Chief Complaint: thrombocytopenia 76M with pmh of MM, discharged from [facility] 07/16/21, during which he had BM biopsy that showed 10% myeloblasts. had outpatient labs 07/20/21 which showed platelets of 7, called by oncologists to come for transfusion, but was unable to arrange so called EMS, EMS noted epistaxis with clot. patient has been progressively weak, but still able to ambulate, plan is to start new round of chemo next week. denies fevers, chills, sob, chest pain, rectal bleeding. did not complain of any significant epistaxis. Review of Systems Review of Systems: Constitutional: Denies fever, denies Chills Eyes: denies blurry vision ENT: denies sore throat CVS: denies chest pain Respiratory: Denies dyspnea GI: no abdominal pain : denies dysuria MSK: denies neck pain Skin: denies rash Neuro: denies specific motor weakness Psych: denies suicidal ideation Endocrine: denies heat/cold intolerance Hematologic: denies easy bleeding Allergy: denies hives [facility] Medical History Anemia BPH (benign prostatic hyperplasia) Diabetes Diabetes mellitus DVT (deep venous thrombosis) Glaucoma HTN (hypertension) Multiple myeloma Multiple myeloma Pancytopenia Paroxysmal atrial fibrillation Paroxysmal atrial fibrillation Thrombocytopenia Urinary retention due to benign prostatic hyperplasia Family History Son FSGS (focal segmental glomerulosclerosis) Surgical History H/O cataract removal with insertion of prosthetic lens Social History Household Members: Spouse Housing: House Do you presently have visiting nurse or other home services: Yes (vna) Alcohol intake: current Alcohol intake frequency: holidays/special occasions only Patient Tobacco Use Status: Former Tobacco user Quit Date: 37 years ago Advance Directives: No Advance Directives Information Provided: No Advance Directives Date on File: 07/14/21 service: No Current occupational status: retired Meds Allergies Allergy/AdvReac Type Severity Reaction Status Date / Time No Known Allergies Allergy Verified 06/29/21 11:38 [No Known Allergies*] Active Medications: Current Medications Acetaminophen (Acetaminophen 325 Mg Tablet) 650 mg PO Q6H PRN PRN Reason: Pain, Mild (Pain Scale 1-3) Brimonidine Tartrate (Brimonidine Tartrate 0.2% Oph 5 Ml Bottle) 1 drop EYE-LEFT BID [facility] Donepezil HCl (Donepezil Hcl 10 Mg Tablet) 10 mg PO DAILY [facility] Latanoprost (Latanoprost 0.005 % Ophth Myra 2.5 Ml Drops) 1 drop EYE-RIGHT BEDTIME DAISY Megestrol Acetate (Megestrol Acetate 400 Mg/10 Ml Oral.Susp) 400 mg PO BID DAISY Metformin HCl (Metformin Hcl 500 Mg Tablet) 500 mg PO BID DAISY Metoprolol Succinate (Metoprolol Succinate Er 25 Mg Tab.Er.24h) 25 mg PO BEDTIME DAISY; Protocol Mirtazapine (Mirtazapine 15 Mg Tablet) 15 mg PO BEDTIME [facility] Omeprazole (Omeprazole 20 Mg/10 Ml Susp.Recon) 10 mg PO DAILY [facility] Oxycodone HCl (Oxycodone Hcl Immed Release 5 Mg Tablet) 5 mg PO Q6H PRN PRN Reason: Pain, Moderate Pharmacy Consult (Consult Rx Perform Med Rec) 1 each MISCELLANE ONCE PRN PRN Reason: Consult order Primidone (Primidone 50 Mg Tablet) 100 mg PO DAILY [facility] Sodium Chloride (0.9 % Sodium Chloride Flush 3 Ml Syringe) 3 ml IVFLUSH QSHIFT DAISY Tamsulosin HCl (Tamsulosin Hcl 0.4 Mg Capsule) 0.4 mg PO BEDTIME [facility] Home Medications Medication Instructions Recorded Confirmed Last Taken Type metformin 500 mg tablet 500 mg PO BID 04/16/20 07/23/21 11/02/20 History primidone 50 mg tablet 100 mg PO DAILY 04/16/20 07/23/21 11/02/20 History tamsulosin 0.4 mg capsule 0.4 mg PO BEDTIME 04/16/20 07/23/21 11/01/20 History zoledronic acid 4 mg/5 mL 4 mg IV QMONTH 04/16/20 07/23/21 Unknown History intravenous solution latanoprost 0.005 % eye drops 1 drp OPHTHALMIC-RIGHT BEDTIME 05/07/20 07/23/21 11/01/20 History brimonidine 0.2 % eye drops 1 drp OPHTHALMIC-LEFT BID 11/02/20 07/23/21 11/02/20 History donepezil 10 mg tablet 10 mg PO DAILY 01/07/21 07/23/21 Unknown History mirtazapine 15 mg tablet 15 mg PO BEDTIME 05/28/21 07/23/21 Unknown History megestrol 400 mg/10 mL (40 mg/mL) 400 mg PO BID 06/29/21 07/23/21 Unknown History oral suspension metoprolol succinate 50 mg 25 mg PO BEDTIME 07/13/21 07/23/21 Unknown History tablet,extended release 24 hr omeprazole 10 mg capsule,delayed 10 mg PO DAILY 07/23/21 07/23/21 Unknown History release oxycodone 5 mg tablet 5 mg PO Q6H PRN 07/23/21 07/23/21 Unknown History Physical Exam Vital Signs and Narrative: Vital Signs: Last Vital Signs Temp 98 F 07/23/21 08:25 Pulse 112 H 07/23/21 08:25 Resp 16 07/23/21 08:25 BP 141/80 H 07/23/21 08:25 Pulse Ox 99 07/23/21 08:25 BMI result Body Mass Index 20.2 General: no acute distress, frail appearing HEENT: atraumatic Neck: normal to visual inspection CVS: S1, S2, RRR Resp: CTA bilateral Chest: non tender GI: soft, non tender, non distended : no CVA tenderness Skin: echymosis Extremities: no edema Neuro: Oriented X3, grossly intact Psych: cooperative Results Labs CBC and Chem 7: 07/23/21 08:43 07/23/21 08:43 Labs: Laboratory Results - last 24 hr 07/23/21 07/23/21 07/23/21 08:43 08:43 08:43 MCV 94.7 MCH 31.9 MCHC 33.7 RDW 15.8 Plt Count 6 L* MPV 15.5 H Immature Gran % (Auto) Cancelled Neut % (Auto) Cancelled Lymph % (Auto) Cancelled [place] % (Auto) Cancelled Eos % (Auto) Cancelled Baso % (Auto) Cancelled Lymph # (Auto) Cancelled [place] # (Auto) Cancelled Eos # (Auto) Cancelled Baso # (Auto) Cancelled Abs Immat Gran (auto) Cancelled Absolute Neuts (auto) Cancelled Absolute Nucleated RBC 0.000 Nucleated RBC % (auto) 0.0 Neutrophils % (Manual) 42 L Band Neutrophils % 3 Lymphocytes % (Manual) 37 Atypical Lymphs % (Man) 5 Monocytes % (Manual) 11 Eosinophils % (Manual) 1 Basophils % (Manual) 1 Abs Neuts (Manual) 0.5 L Lymphocytes # (Manual) 0.4 L Atyp Lymphs # (Manual) 0.1 Monocytes # (Manual) 0.1 Nucleated RBCs 1 H Platelet Estimate DECREASED Large Platelets PRESENT Plt Morphology Comment NOTED RBC Morphology NOTED Macrocytosis 1+ (5-14) Tear Drop Cells 2+ (3-5) Ovalocytes 2+ (15-30) Acanthocytes (Spur) 2+ (3-5) PT 18.3 H INR 1.6 H APTT 26.4 Anion Gap 15 Estim Creat Clear Calc 56.2 Estimated GFR > 60 Random Glucose 232 H D Calcium 8.2 L D Magnesium 1.9 Total Bilirubin 1.1 H Direct Bilirubin 0.7 H AST 14 ALT 18 Alkaline Phosphatase 71 Total Protein 5.4 L Albumin 3.3 L COVID-19 ([facility]) COVID-19 Clin Com Blood Type Antibody Screen 07/23/21 07/23/21 08:43 08:43 MCV MCH MCHC RDW Plt Count MPV Immature Gran % (Auto) Neut % (Auto) Lymph % (Auto) [place] % (Auto) Eos % (Auto) Baso % (Auto) Lymph # (Auto) [place] # (Auto) Eos # (Auto) Baso # (Auto) Abs Immat Gran (auto) Absolute Neuts (auto) Absolute Nucleated RBC Nucleated RBC % (auto) Neutrophils % (Manual) Band Neutrophils % Lymphocytes % (Manual) Atypical Lymphs % (Man) Monocytes % (Manual) Eosinophils % (Manual) Basophils % (Manual) Abs Neuts (Manual) Lymphocytes # (Manual) Atyp Lymphs # (Manual) Monocytes # (Manual) Nucleated RBCs Platelet Estimate Large Platelets Plt Morphology Comment RBC Morphology Macrocytosis Tear Drop Cells Ovalocytes Acanthocytes (Spur) PT INR APTT Anion Gap Estim Creat Clear Calc Estimated GFR Random Glucose Calcium Magnesium Total Bilirubin Direct Bilirubin AST ALT Alkaline Phosphatase Total Protein Albumin COVID-19 ([facility]) Negative COVID-19 Clin Com See Note Blood Type AB Positive Antibody Screen NEGATIVE Assessment and Plan (1) Thrombocytopenia: Status: Acute Plan 76M presented with pancytopenia with severe thrombocytopenia Multiple myeloma complicated by pancytopenia with severe thrombocytopenia ordered for 1 unit of platelets in ED monitor CBC oncology consult paroxysmal atrial fibrillation continue Toprol and diltiazem, no longer on anticoagulation due to severe thrombocytopenia hypertension continue diltiazem and Toprol diabetes metformin BPH Flomax DVT prophylaxis -mechanical due to thrombocytopenia full code Quality Stroke Does the patient have a stroke diagnosis?: No VTE Prior VTE?: No VTE Risk Level:: Medical - moderate - high VTE Device Contraindication: N/A - Device Ordered VTE Drug Contraindication: Treatment Not Indicated
[2021-07-23 12:19] LABS: Glucose, Whole Blood 176 mg/dL (60-115)
[2021-07-23 16:35] LABS: Glucose, Whole Blood 152 mg/dL (60-115)
--- NOTE | 2021-07-23 18:35 | P.CNHO_ITS ---
Subjective - Subjective Chief complaint: pancytopenia Patient: known to practice within the last 3 years Consult date: 07/23/21 Primary Care Provider: Unknown Physician HPI - Consult Narrative Reason for consult: myeloma Narrative: Tonny Hernadez is a 76 year old male well known to me since the diagnosis of IgG-k myeloma in 2017. He has been tr eated intermittently with dexamethasone/lenalidomide/bortezimib but has not progressed. He is pancytopenic. He and his desire more aggressive treatment so we are obtaining pmoaoidomide and dexamethasone and will likely add carfilzomib if the response is inadequate. [facility] is mailing him the m edications. He is admitted with hemoptysis and and epistaxis and platelets less then 10,000. Review of Systems - ENT Reports vertigo, Reports epistaxis - Cardiovascular Reports shortness of breath - Respiratory Reports hemoptysis - Genitourinary Genitourinary: Reports frequent nighttime urination - Musculoskeletal Reports muscle weakness - Integumentary/Breasts Skin/Breast: Reports unusual bruising - Neurologic Reports memory loss [facility] Medical History: Medical History (Last Reviewed 07/23/21 @ 10:48 by Robert Calderon MD) Anemia BPH (benign prostatic hyperplasia) Diabetes Diabetes mellitus DVT (deep venous thrombosis) Glaucoma HTN (hypertension) Multiple myeloma Multiple myeloma Pancytopenia Paroxysmal atrial fibrillation Paroxysmal atrial fibrillation Thrombocytopenia Urinary retention due to benign prostatic hyperplasia Family History: Family History (Last Reviewed 07/23/21 @ 10:48 by Robert Calderon MD) Son FSGS (focal segmental glomerulosclerosis) Surgical History: Surgical History (Last Reviewed 07/23/21 @ 10:48 by Robert Calderon MD) H/O cataract removal with insertion of prosthetic lens Social History: Social History (Last Reviewed 07/23/21 @ 10:48 by Robert Calderon MD) Living Situation History: Household Members: Spouse Housing: House Do you presently have visiting nurse or other home services: Yes Do you presently have visiting nurse or other home services comment: vna Tobacco History: Patient Tobacco Use Status: Former Tobacco user Smoke Quit Date: 37 years ago Advance Directives: Advance Directives Date on File: 07/14/21 Occupation Assessmet: service: No Current occupational status: retired Home Medications and Allergies Current Medications: Current Medications Acetaminophen (Acetaminophen 325 Mg Tablet) 650 mg PO Q6H PRN PRN Reason: Pain, Mild (Pain Scale 1-3) Brimonidine Tartrate (Brimonidine Tartrate 0.2% Oph 5 Ml Bottle) 1 drop EYE- LEFT BID [facility] Donepezil HCl (Donepezil Hcl 10 Mg Tablet) 10 mg PO DAILY [facility] Latanoprost (Latanoprost 0.005 % Ophth Myra 2.5 Ml Drops) 1 drop EYE-RIGHT BEDT [facility] Megestrol Acetate (Megestrol Acetate 400 Mg/10 Ml Oral.Susp) 400 mg PO BID [facility] Metformin HCl (Metformin Hcl 500 Mg Tablet) 500 mg PO BID [facility] Metoprolol Succinate (Metoprolol Succinate Er 25 Mg Tab.Er.24h) 25 mg PO BEDTIME [facility]; Protocol Mirtazapine (Mirtazapine 15 Mg Tablet) 15 mg PO BEDTIME [facility] Omeprazole (Omeprazole 20 Mg/10 Ml Susp.Recon) 10 mg PO DAILY [facility] Oxycodone HCl (Oxycodone Hcl Immed Release 5 Mg Tablet) 5 mg PO Q6H PRN PRN Reason: Pain, Moderate Pharmacy Consult (Consult Rx Perform Med Rec) 1 each MISCELLANE ONCE PRN PRN Reason: Consult order Primidone (Primidone 50 Mg Tablet) 100 mg PO DAILY [facility] Sodium Chloride (0.9 % Sodium Chloride Flush 3 Ml Syringe) 3 ml IVFLUSH [facility] Last Admin: 07/23/21 17:07 Dose: Not Given Documented by: Tamsulosin HCl (Tamsulosin Hcl 0.4 Mg Capsule) 0.4 mg PO BEDTIME [facility] Home Medications Medication Instructions Recorded Confirmed Type metformin 500 mg tablet 500 mg PO BID 04/16/20 07/23/21 History primidone 50 mg tablet 100 mg PO DAILY 04/16/20 07/23/21 History tamsulosin 0.4 mg capsule 0.4 mg PO BEDTIME 04/16/20 07/23/21 History zoledronic acid 4 mg/5 mL 4 mg IV QMONTH 04/16/20 07/23/21 History intravenous solution latanoprost 0.005 % eye drops 1 drp OPHTHALMIC-RIGHT BEDTIME 05/07/20 07/23/21 History brimonidine 0.2 % eye drops 1 drp OPHTHALMIC-LEFT BID 11/02/20 07/23/21 History donepezil 10 mg tablet 10 mg PO DAILY 01/07/21 07/23/21 History mirtazapine 15 mg tablet 15 mg PO BEDTIME 05/28/21 07/23/21 History megestrol 400 mg/10 mL (40 mg/mL) 400 mg PO BID 06/29/21 07/23/21 History oral suspension metoprolol succinate 50 mg 25 mg PO BEDTIME 07/13/21 07/23/21 History tablet,extended release 24 hr omeprazole 10 mg capsule,delayed 10 mg PO DAILY 07/23/21 07/23/21 History release oxycodone 5 mg tablet 5 mg PO Q6H PRN 07/23/21 07/23/21 History Allergies Allergy/AdvReac Type Severity Reaction Status Date / Time No Known Allergies Allergy Verified 06/29/21 11:38 [No Known Allergies*] Physical Exam Vital signs: Vital Signs Temp 98.7 F 07/23/21 15:15 Pulse 107 H 07/23/21 15:15 Resp 18 07/23/21 15:15 BP 129/66 07/23/21 15:15 Pulse Ox 98 07/23/21 15:15 Intake & Output 07/22/21 07/23/21 07/23/21 18:59 06:59 18:59 Intake Total 240 / 240 Balance 240 / 240 Intake: Intake (Blood Product) Amount 240 / 240 Plt Aph Pas Pathreduced(E8341) 240 / 240 Unit [id number] Other: Weight 69.853 kg Weight 69.853 kg - Constitutional Present: no acute distress - Routine HEENT Exam Head: Present: atraumatic ENT: Present: mucous membranes dry - Routine Respiratory Exam Present: rhonchi - Routine Cardiovascular Exam Cardiovascular: Present: tachycardia - Routine Abdominal Exam Present: nontender - Routine Extremities Exam Present: nontender - Routine Skin Exam Present: intact Hem/Onc Consult Result - Labs CBC & Chem 7: 07/23/21 08:43 07/23/21 08:43 Labs: Short CBC 07/23/21 Range/Units 08:43 WBC 1.1 L (4.8-10.8) X10*3/uL Hgb 9.0 L (14.0-18.0) g/dl Hct 26.7 L (42.0-52.0) % Plt Count 6 L* (160-400) X10*3/uL BMP 07/23/21 08:43 Sodium 138 Potassium 4.6 D Chloride 106 Carbon Dioxide 22 BUN 15 Creatinine 1.07 Calcium 8.2 L D Liver Function 07/23/21 Range/Units 08:43 Total Bilirubin 1.1 H (0.0-1.0) mg/dL Direct Bilirubin 0.7 H (0.0-0.5) mg/dL AST 14 (5-37) U/L ALT 18 (0-40) U/L Alkaline Phosphatase 71 (39-117) U/L Albumin 3.3 L (3.5-5.0) g/dL Assessment and Plan Patient Active problem list reviewed?: Yes (1) Thrombocytopenia Status: Acute Assessment and plan: He needs a platelet transfusion and likelu 2 uniits of red cells. He will need a port. His survival depends upon the efficacy of a new chemotherapy regimen which is in progress.Will follow. - Time Spent With Patient Time Spent with Patient (in minutes): 20
[2021-07-23 20:08] LABS: Glucose, Whole Blood 148 mg/dL (60-115)
[2021-07-23] MEDS: Metoprolol Succinate ER 25 MG TAB.ER.24H PO (20:43)
[2021-07-23] MEDS: metFORMIN HCl 500 MG TABLET PO (20:43)
[2021-07-23] MEDS: Megestrol Acetate 400 MG/10 ML ORAL.SUSP PO (20:44)
[2021-07-23] MEDS: 0.9 % Sodium Chloride Flush 3 ML SYRINGE IVFLUSH (20:44)
[2021-07-23] MEDS: Tamsulosin HCL 0.4 MG CAPSULE PO (20:44)
[2021-07-23] MEDS: Mirtazapine 15 MG TABLET PO (20:44)
[2021-07-24] VITALS (14 sets, daily range): BP systolic 112–134; BP diastolic 52–73; PULSE 84–100; RESP 16–20; TEMP 36.1–37.2; O2SAT 98–100
[2021-07-24 06:12] LABS: PLT CLUMP 1
[2021-07-24 06:13] LABS: Hematocrit 22.5 % (42.0-52.0); Hemoglobin 7.8 g/dl (14.0-18.0); Mean Corpuscular HGB Conc 34.7 g/dl (31.0-36.0); Mean Corpuscular Hemoglobin 32.5 pg (27.0-33.0); Mean Corpuscular Volume 93.8 fL (80.0-98.0); Red Cell Distribution Width 15.9 % (11.0-16.0)
[2021-07-24 06:18] LABS: White Blood Count 1.1 X10*3/uL (4.8-10.8)
[2021-07-24 06:21] LABS: Platelet Count 12 X10*3/uL (160-400)
[2021-07-24 06:24] LABS: Anion Gap 15 (12-20); Blood Urea Nitrogen 16 mg/dL (9-16); Calcium 7.9 mg/dL (8.4-10.2); Carbon Dioxide 21 mmol/L (22-29); Chloride 107 mmol/L (96-108); Creatinine Clr Calc Pharmacy 73.3; Estimated Glomerular Filt Rate > 60; Glucose Fasting 143 mg/dL (60-99); Potassium 4.1 mmol/L (3.3-5.1); Sodium 139 mmol/L (135-145)
[2021-07-24 07:36] LABS: Glucose, Whole Blood 134 mg/dL (60-115)
--- NOTE | 2021-07-24 08:30 | HO.PM.IMPN ---
Subjective Subjective Date of Service: 07/24/21 Interval History: cc: low platelets interval history: no complaints Cardiovascular Cardiovascular: Reports no additional cardiovascular complaints Respiratory Respiratory: Reports no additional respiratory complaints Physical Exam Vital Signs: Vital Signs: Last Vital Signs Temp 97 F 07/24/21 07:29 Pulse 90 07/24/21 07:29 Resp 18 07/24/21 07:29 BP 112/52 L 07/24/21 07:29 Pulse Ox 100 07/24/21 07:29 BMI result Body Mass Index 20.2 General: AO X 3, no acute distress, frail Resp: CTA bilateral, no accessory muscles used CVS: S1,S2,RRR GI: soft, non tender, non distended Neuro: motor grossly intact, alert Psych: appropriate affect, appropriate insight Objective Data Active Medications Acetaminophen (Acetaminophen 325 Mg Tablet) 650 mg PO Q6H PRN PRN Reason: Pain, Mild (Pain Scale 1-3) Brimonidine Tartrate (Brimonidine Tartrate 0.2% Oph 5 Ml Bottle) 1 drop EYE-LEFT BID [facility] Last Admin: 07/23/21 21:02 Dose: Not Given Documented by: SAMINA Non-Admin Reason: Med Not Available Donepezil HCl (Donepezil Hcl 10 Mg Tablet) 10 mg PO DAILY [facility] Latanoprost (Latanoprost 0.005 % Ophth Myra 2.5 Ml Drops) 1 drop EYE-RIGHT BEDTIME [facility] Last Admin: 07/23/21 21:02 Dose: Not Given Documented by: SAMINA Non-Admin Reason: Med Not Available Megestrol Acetate (Megestrol Acetate 400 Mg/10 Ml Oral.Susp) 400 mg PO BID [facility] Last Admin: 07/23/21 20:44 Dose: 400 mg Documented by: SAMINA Metformin HCl (Metformin Hcl 500 Mg Tablet) 500 mg PO BID [facility] Last Admin: 07/23/21 20:43 Dose: 500 mg Documented by: SAMINA Metoprolol Succinate (Metoprolol Succinate Er 25 Mg Tab.Er.24h) 25 mg PO BEDTIME [facility]; Protocol Last Admin: 07/23/21 20:43 Dose: 25 mg Documented by: SAMINA Mirtazapine (Mirtazapine 15 Mg Tablet) 15 mg PO BEDTIME [facility] Last Admin: 07/23/21 20:44 Dose: 15 mg Documented by: SAMINA Omeprazole (Omeprazole 20 Mg/10 Ml Susp.Recon) 10 mg PO DAILY [facility] Oxycodone HCl (Oxycodone Hcl Immed Release 5 Mg Tablet) 5 mg PO Q6H PRN PRN Reason: Pain, Moderate Pharmacy Consult (Consult Rx Perform Med Rec) 1 each MISCELLANE ONCE PRN PRN Reason: Consult order Primidone (Primidone 50 Mg Tablet) 100 mg PO DAILY [facility] Sodium Chloride (0.9 % Sodium Chloride Flush 3 Ml Syringe) 3 ml IVFLUSH QSHIFT [facility] Last Admin: 07/23/21 20:44 Dose: 3 ml Documented by: SAMINA Tamsulosin HCl (Tamsulosin Hcl 0.4 Mg Capsule) 0.4 mg PO BEDTIME [facility] Last Admin: 07/23/21 20:44 Dose: 0.4 mg Documented by: SAMINA Labs CBC & Chem 7: 07/24/21 05:55 07/24/21 05:55 Labs: Laboratory Results - last 24 hr 07/23/21 07/23/21 07/23/21 08:43 08:43 08:43 MCV 94.7 MCH 31.9 MCHC 33.7 RDW 15.8 Plt Count 6 L* MPV 15.5 H Immature Gran % (Auto) Cancelled Neut % (Auto) Cancelled Lymph % (Auto) Cancelled Christian % (Auto) Cancelled Eos % (Auto) Cancelled Baso % (Auto) Cancelled Lymph # (Auto) Cancelled Christian # (Auto) Cancelled Eos # (Auto) Cancelled Baso # (Auto) Cancelled Abs Immat Gran (auto) Cancelled Absolute Neuts (auto) Cancelled Absolute Nucleated RBC 0.000 Nucleated RBC % (auto) 0.0 Neutrophils % (Manual) 42 L Band Neutrophils % 3 Lymphocytes % (Manual) 37 Atypical Lymphs % (Man) 5 Monocytes % (Manual) 11 Eosinophils % (Manual) 1 Basophils % (Manual) 1 Abs Neuts (Manual) 0.5 L Lymphocytes # (Manual) 0.4 L Atyp Lymphs # (Manual) 0.1 Monocytes # (Manual) 0.1 Nucleated RBCs 1 H Platelet Estimate DECREASED Large Platelets PRESENT Plt Morphology Comment NOTED RBC Morphology NOTED Macrocytosis 1+ (5-14) Tear Drop Cells 2+ (3-5) Ovalocytes 2+ (15-30) Acanthocytes (Spur) 2+ (3-5) PT 18.3 H INR 1.6 H APTT 26.4 Anion Gap 15 Estim Creat Clear Calc 56.2 Estimated GFR > 60 POC Glucose Random Glucose 232 H D Fasting Glucose Calcium 8.2 L D Magnesium 1.9 Total Bilirubin 1.1 H Direct Bilirubin 0.7 H AST 14 ALT 18 Alkaline Phosphatase 71 Total Protein 5.4 L Albumin 3.3 L COVID-19 ([facility]) COVID-19 Clin Com Blood Type Antibody Screen Crossmatch 07/23/21 07/23/21 07/23/21 08:43 08:43 12:12 MCV MCH MCHC RDW Plt Count MPV Immature Gran % (Auto) Neut % (Auto) Lymph % (Auto) Christian % (Auto) Eos % (Auto) Baso % (Auto) Lymph # (Auto) Christian # (Auto) Eos # (Auto) Baso # (Auto) Abs Immat Gran (auto) Absolute Neuts (auto) Absolute Nucleated RBC Nucleated RBC % (auto) Neutrophils % (Manual) Band Neutrophils % Lymphocytes % (Manual) Atypical Lymphs % (Man) Monocytes % (Manual) Eosinophils % (Manual) Basophils % (Manual) Abs Neuts (Manual) Lymphocytes # (Manual) Atyp Lymphs # (Manual) Monocytes # (Manual) Nucleated RBCs Platelet Estimate Large Platelets Plt Morphology Comment RBC Morphology Macrocytosis Tear Drop Cells Ovalocytes Acanthocytes (Spur) PT INR APTT Anion Gap Estim Creat Clear Calc Estimated GFR POC Glucose 176 H Random Glucose Fasting Glucose Calcium Magnesium Total Bilirubin Direct Bilirubin AST ALT Alkaline Phosphatase Total Protein Albumin COVID-19 ([facility]) Negative COVID-19 Clin Com See Note Blood Type AB Positive Antibody Screen NEGATIVE Crossmatch See Detail 07/23/21 07/23/21 07/24/21 15:40 19:19 05:55 MCV 93.8 MCH 32.5 MCHC 34.7 RDW 15.9 Plt Count 12 L* D MPV Not Reportable Immature Gran % (Auto) Neut % (Auto) Lymph % (Auto) Christian % (Auto) Eos % (Auto) Baso % (Auto) Lymph # (Auto) Christian # (Auto) Eos # (Auto) Baso # (Auto) Abs Immat Gran (auto) Absolute Neuts (auto) Absolute Nucleated RBC 0.000 Nucleated RBC % (auto) 0.0 Neutrophils % (Manual) Band Neutrophils % Lymphocytes % (Manual) Atypical Lymphs % (Man) Monocytes % (Manual) Eosinophils % (Manual) Basophils % (Manual) Abs Neuts (Manual) Lymphocytes # (Manual) Atyp Lymphs # (Manual) Monocytes # (Manual) Nucleated RBCs Platelet Estimate Large Platelets Plt Morphology Comment RBC Morphology Macrocytosis Tear Drop Cells Ovalocytes Acanthocytes (Spur) PT INR APTT Anion Gap Estim Creat Clear Calc Estimated GFR POC Glucose 152 H 148 H Random Glucose Fasting Glucose Calcium Magnesium Total Bilirubin Direct Bilirubin AST ALT Alkaline Phosphatase Total Protein Albumin COVID-19 ([facility]) COVID-19 Clin Com Blood Type Antibody Screen Crossmatch 07/24/21 07/24/21 05:55 07:26 MCV MCH MCHC RDW Plt Count MPV Immature Gran % (Auto) Neut % (Auto) Lymph % (Auto) Christian % (Auto) Eos % (Auto) Baso % (Auto) Lymph # (Auto) Christian # (Auto) Eos # (Auto) Baso # (Auto) Abs Immat Gran (auto) Absolute Neuts (auto) Absolute Nucleated RBC Nucleated RBC % (auto) Neutrophils % (Manual) Band Neutrophils % Lymphocytes % (Manual) Atypical Lymphs % (Man) Monocytes % (Manual) Eosinophils % (Manual) Basophils % (Manual) Abs Neuts (Manual) Lymphocytes # (Manual) Atyp Lymphs # (Manual) Monocytes # (Manual) Nucleated RBCs Platelet Estimate Large Platelets Plt Morphology Comment RBC Morphology Macrocytosis Tear Drop Cells Ovalocytes Acanthocytes (Spur) PT INR APTT Anion Gap 15 Estim Creat Clear Calc 73.3 Estimated GFR > 60 POC Glucose 134 H Random Glucose Fasting Glucose 143 H Calcium 7.9 L Magnesium Total Bilirubin Direct Bilirubin AST ALT Alkaline Phosphatase Total Protein Albumin COVID-19 ([facility]) COVID-19 Clin Com Blood Type Antibody Screen Crossmatch Assessment and Plan (1) Thrombocytopenia: Status: Acute (2) Thrombocytopenia: (3) Multiple myeloma: (4) Pancytopenia: Plan 76M presented with pancytopenia and weakness multiple myeloma complicated by pancytopenia with severe thrombocytopenia received 1 unit of plt so far plat slightly up to 12 today, will order another unti and 2 units prbc, (hgb down to 7.8) Dr. Ellis following paroxysmal atrial fibrillation continue Toprol and diltiazem, Coumadin stopped for thrombocytopenia hypertension Cardizem and Toprol diabetes metformin BPH Flomax DVT prophylaxis -mechanical due to thrombocytopenia reason for continued hospitalization: requiring further transfusions and monitoring Quality Stroke Does the patient have a stroke diagnosis?: No VTE Prior VTE?: No VTE Risk Level:: Medical - moderate - high VTE Device Contraindication: N/A - Device Ordered VTE Drug Contraindication: Treatment Not Indicated
[2021-07-24] MEDS: 0.9 % Sodium Chloride Flush 3 ML SYRINGE IVFLUSH ×2 (09:17→20:13)
[2021-07-24] MEDS: Donepezil HCl 10 MG TABLET PO (09:18)
[2021-07-24] MEDS: Megestrol Acetate 400 MG/10 ML ORAL.SUSP PO ×2 (09:18→20:13)
[2021-07-24] MEDS: Primidone 50 MG TABLET 100 MG PO (09:18)
[2021-07-24] MEDS: metFORMIN HCl 500 MG TABLET PO ×2 (09:18→20:13)
--- NOTE | 2021-07-24 10:10 | P.PNHO_ITS ---
Medical Summary - Medical Summary Date of Service: 07/24/21 Interval History Interval history: Tonny Hernadez is a 76 year old male well known to me since the diagnosis of IgG-k myeloma in 2017. He has been treated intermittently with dexamethasone/lenalidomide/bortezimib but has not progressed. He is pancytopenic. He and his desire more aggressive treatment so we are obtaining pmoaoidomide and dexamethasone and will likely add carfilzomib if the response is inadequate. [facility] is mailing him the medications. He is admitted with hemoptysis and and epistaxis and platelets less then 10,000.He is receiving his blood now. His chemotherapy will be delivered Monday morning next. Review of Systems - Constitutional Reports anorexia - ENT Reports hearing loss - Cardiovascular Reports fast heart rate - Respiratory Reports dyspnea - Gastrointestinal Reports other - Genitourinary Genitourinary: Reports urinary incontinence - Neurologic Reports vertigo, Reports memory loss - Hematologic/Lymphatic Reports easy bruising PMFSH Medical History: Medical History (Last Reviewed 07/23/21 @ 10:48 by Robert Calderon MD) Anemia BPH (benign prostatic hyperplasia) Diabetes Diabetes mellitus DVT (deep venous thrombosis) Glaucoma HTN (hypertension) Multiple myeloma Multiple myeloma Pancytopenia Paroxysmal atrial fibrillation Paroxysmal atrial fibrillation Thrombocytopenia Urinary retention due to benign prostatic hyperplasia Family History: Family History (Last Reviewed 07/23/21 @ 10:48 by Robert Calderon MD) Son FSGS (focal segmental glomerulosclerosis) Surgical History: Surgical History (Last Reviewed 07/23/21 @ 10:48 by Robert Calderon MD) H/O cataract removal with insertion of prosthetic lens Social History: Social History (Last Reviewed 07/23/21 @ 10:48 by Robert Calderon MD) Living Situation History: Household Members: Spouse Housing: House Do you presently have visiting nurse or other home services: Yes Do you presently have visiting nurse or other home services comment: vna Tobacco History: Patient Tobacco Use Status: Former Tobacco user Smoke Quit Date: 37 years ago Advance Directives: Advance Directives Date on File: 07/14/21 Occupation Assessmet: service: No Current occupational status: retired Home Medications and Allergies Current Medications: Current Medications Acetaminophen (Acetaminophen 325 Mg Tablet) 650 mg PO Q6H PRN PRN Reason: Pain, Mild (Pain Scale 1-3) Brimonidine Tartrate (Brimonidine Tartrate 0.2% Oph 5 Ml Bottle) 1 drop EYE- LEFT BID [facility] Last Admin: 07/24/21 09:18 Dose: Not Given Documented by: Donepezil HCl (Donepezil Hcl 10 Mg Tablet) 10 mg PO DAILY [facility] Last Admin: 07/24/21 09:18 Dose: 10 mg Documented by: Latanoprost (Latanoprost 0.005 % Ophth Myra 2.5 Ml Drops) 1 drop EYE-RIGHT BEDTIME [facility] Last Admin: 07/23/21 21:02 Dose: Not Given Documented by: Megestrol Acetate (Megestrol Acetate 400 Mg/10 Ml Oral.Susp) 400 mg PO BID [facility] Last Admin: 07/24/21 09:18 Dose: 400 mg Documented by: Metformin HCl (Metformin Hcl 500 Mg Tablet) 500 mg PO BID [facility] Last Admin: 07/24/21 09:18 Dose: 500 mg Documented by: Metoprolol Succinate (Metoprolol Succinate Er 25 Mg Tab.Er.24h) 25 mg PO BEDTIME [facility]; Protocol Last Admin: 07/23/21 20:43 Dose: 25 mg Documented by: Mirtazapine (Mirtazapine 15 Mg Tablet) 15 mg PO BEDTIME [facility] Last Admin: 07/23/21 20:44 Dose: 15 mg Documented by: Omeprazole (Omeprazole 20 Mg/10 Ml Susp.Recon) 10 mg PO DAILY [facility] Last Admin: 07/24/21 09:17 Dose: 10 mg Documented by: Oxycodone HCl (Oxycodone Hcl Immed Release 5 Mg Tablet) 5 mg PO Q6H PRN PRN Reason: Pain, Moderate Pharmacy Consult (Consult Rx Perform Med Rec) 1 each MISCELLANE ONCE PRN PRN Reason: Consult order Primidone (Primidone 50 Mg Tablet) 100 mg PO DAILY [facility] Last Admin: 07/24/21 09:18 Dose: 100 mg Documented by: Sodium Chloride (0.9 % Sodium Chloride Flush 3 Ml Syringe) 3 ml IVFLUSH QSHIFT [facility] Last Admin: 07/24/21 09:17 Dose: 3 ml Documented by: Tamsulosin HCl (Tamsulosin Hcl 0.4 Mg Capsule) 0.4 mg PO BEDTIME [facility] Last Admin: 07/23/21 20:44 Dose: 0.4 mg Documented by: Home Medications Medication Instructions Recorded Confirmed Type metformin 500 mg tablet 500 mg PO BID 04/16/20 07/23/21 History primidone 50 mg tablet 100 mg PO DAILY 04/16/20 07/23/21 History tamsulosin 0.4 mg capsule 0.4 mg PO BEDTIME 04/16/20 07/23/21 History zoledronic acid 4 mg/5 mL 4 mg IV QMONTH 04/16/20 07/23/21 History intravenous solution latanoprost 0.005 % eye drops 1 drp OPHTHALMIC-RIGHT BEDTIME 05/07/20 07/23/21 History brimonidine 0.2 % eye drops 1 drp OPHTHALMIC-LEFT BID 11/02/20 07/23/21 History donepezil 10 mg tablet 10 mg PO DAILY 01/07/21 07/23/21 History mirtazapine 15 mg tablet 15 mg PO BEDTIME 05/28/21 07/23/21 History megestrol 400 mg/10 mL (40 mg/mL) 400 mg PO BID 06/29/21 07/23/21 History oral suspension metoprolol succinate 50 mg 25 mg PO BEDTIME 07/13/21 07/23/21 History tablet,extended release 24 hr omeprazole 10 mg capsule,delayed 10 mg PO DAILY 07/23/21 07/23/21 History release oxycodone 5 mg tablet 5 mg PO Q6H PRN 07/23/21 07/23/21 History Allergies Allergy/AdvReac Type Severity Reaction Status Date / Time No Known Allergies Allergy Verified 06/29/21 11:38 [No Known Allergies*] Exam Vital signs: Vital Signs Temp 97 F 07/24/21 07:29 Pulse 90 07/24/21 07:29 Resp 18 07/24/21 07:29 BP 112/52 L 07/24/21 07:29 Pulse Ox 100 07/24/21 07:29 Intake & Output 07/23/21 07/24/21 07/24/21 18:59 06:59 18:59 Intake Total 240 / 360 120 / 360 Output Total 400 / 400 Balance 240 / -40 -280 / -40 Urine Output (Average ml/kg/hr) 0.48 Intake: Intake, Oral Amount 120 / 120 Intake (Blood Product) Amount 240 / 240 Plt Aph Pas Pathreduced(E8341) 240 / 240 Unit [id number] Output: Output, Urine Amount 400 / 400 Other: Meal Refused No NPO No Dinner % Eaten 50% Number of Unmeasured Voids 1 Urine Urinal Urine Color Yellow Weight 69.853 kg Weight 69.853 kg BMI result Body Mass Index 20.2 - Constitutional Present: no acute distress - Routine HEENT Exam Head: Present: atraumatic, normocephalic - Routine Neck Exam Present: full ROM - Routine Respiratory Exam Present: decreased breath sounds, rhonchi - Routine Cardiovascular Exam Cardiovascular: Present: tachycardia - Routine Abdominal Exam Present: nontender - Routine Extremities Exam Present: nontender - Routine Skin Exam Present: intact Data - Labs CBC & Chem 7: 07/24/21 05:55 07/24/21 05:55 Labs: 07/23/21 08:19 ECG 12 lead EKG Stat EKG Documentation DIRECTED 07/23/21 08:20 CT head/brain wo con Stat 07/23/21 08:43 Basic Metabolic Panel Stat COVID-19 ID NOW ([facility]) Stat Complete Blood Count Man Dif Stat Liver Panel Stat Magnesium Stat Partial Thromboplastin Time Stat Prothrombin Time INR Stat 07/23/21 10:38 Intake and Output Q8HR Intake and Output Q8HR 07/23/21 12:12 Glucose, Whole Blood Routine 07/23/21 15:40 Glucose, Whole Blood Routine 07/23/21 19:19 Glucose, Whole Blood Routine 07/24/21 05:55 BMP [Basic Metabolic Panel Fasting] Routine Complete Blood Count no Diff AM 07/24/21 07:26 Glucose, Whole Blood Routine Laboratory Last Values WBC 1.1 X10*3/uL (4.8-10.8) L 07/24/21 05:55 RBC 2.40 X10*6/uL (4.60-5.80) L 07/24/21 05:55 Hgb 7.8 g/dl (14.0-18.0) L 07/24/21 05:55 Hct 22.5 % (42.0-52.0) L 07/24/21 05:55 MCV 93.8 fL (80.0-98.0) 07/24/21 05:55 MCH 32.5 pg (27.0-33.0) 07/24/21 05:55 MCHC 34.7 g/dl (31.0-36.0) 07/24/21 05:55 RDW 15.9 % (11.0-16.0) 07/24/21 05:55 Plt Count 12 X10*3/uL (160-400) L* D 07/24/21 05:55 MPV Not Reportable 07/24/21 05:55 Immature Gran % (Auto) Cancelled 07/23/21 08:43 Neut % (Auto) Cancelled 07/23/21 08:43 Lymph % (Auto) Cancelled 07/23/21 08:43 Labette % (Auto) Cancelled 07/23/21 08:43 Eos % (Auto) Cancelled 07/23/21 08:43 Baso % (Auto) Cancelled 07/23/21 08:43 Lymph # (Auto) Cancelled 07/23/21 08:43 Labette # (Auto) Cancelled 07/23/21 08:43 Eos # (Auto) Cancelled 07/23/21 08:43 Baso # (Auto) Cancelled 07/23/21 08:43 Abs Immat Gran (auto) Cancelled 07/23/21 08:43 Absolute Neuts (auto) Cancelled 07/23/21 08:43 Absolute Nucleated RBC 0.000 X10*3/uL (0.0-0.012) 07/24/21 05:55 Nucleated RBC % (auto) 0.0 /100WBC (0.0-0.2) 07/24/21 05:55 Neutrophils % (Manual) 42 % (45-73) L 07/23/21 08:43 Band Neutrophils % 3 % (3-5) 07/23/21 08:43 Lymphocytes % (Manual) 37 % (20-40) 07/23/21 08:43 Atypical Lymphs % (Man) 5 % (0-6) 07/23/21 08:43 Monocytes % (Manual) 11 % (2-11) 07/23/21 08:43 Eosinophils % (Manual) 1 % (0-4) 07/23/21 08:43 Basophils % (Manual) 1 % (0-2) 07/23/21 08:43 Abs Neuts (Manual) 0.5 X10*3/uL (2.0-8.3) L 07/23/21 08:43 Lymphocytes # (Manual) 0.4 X10*3/uL (1.2-4.9) L 07/23/21 08:43 Atyp Lymphs # (Manual) 0.1 x10*3/uL 07/23/21 08:43 Monocytes # (Manual) 0.1 X10*3/uL (0.1-1.2) 07/23/21 08:43 Nucleated RBCs 1 /100WBC (0-0) H 07/23/21 08:43 Platelet Estimate DECREASED (NORMAL) 07/23/21 08:43 Large Platelets PRESENT 07/23/21 08:43 Plt Morphology Comment NOTED 07/23/21 08:43 RBC Morphology NOTED 07/23/21 08:43 Macrocytosis 1+ (5-14) /OIF 07/23/21 08:43 Tear Drop Cells 2+ (3-5) /OIF 07/23/21 08:43 Ovalocytes 2+ (15-30) /OIF 07/23/21 08:43 Acanthocytes (Spur) 2+ (3-5) /OIF 07/23/21 08:43 PT 18.3 SEC (9.9-13.0) H 07/23/21 08:43 INR 1.6 (0.9-1.1) H 07/23/21 08:43 APTT 26.4 SEC (24.1-38.0) 07/23/21 08:43 Sodium 139 mmol/L (135-145) 07/24/21 05:55 Potassium 4.1 mmol/L (3.3-5.1) 07/24/21 05:55 Chloride 107 mmol/L (96-108) 07/24/21 05:55 Carbon Dioxide 21 mmol/L (22-29) L 07/24/21 05:55 Anion Gap 15 (12-20) 07/24/21 05:55 BUN 16 mg/dL (9-16) 07/24/21 05:55 Creatinine 0.82 mg/dL (0.5-1.4) 07/24/21 05:55 Estim Creat Clear Calc 73.3 07/24/21 05:55 Estimated GFR > 60 07/24/21 05:55 POC Glucose 134 mg/dL (60-115) H 07/24/21 07:26 Random Glucose 232 mg/dL (60-115) H D 07/23/21 08:43 Fasting Glucose 143 mg/dL (60-99) H 07/24/21 05:55 Calcium 7.9 mg/dL (8.4-10.2) L 07/24/21 05:55 Magnesium 1.9 mg/dL (1.6-2.6) 07/23/21 08:43 Total Bilirubin 1.1 mg/dL (0.0-1.0) H 07/23/21 08:43 Direct Bilirubin 0.7 mg/dL (0.0-0.5) H 07/23/21 08:43 AST 14 U/L (5-37) 07/23/21 08:43 ALT 18 U/L (0-40) 07/23/21 08:43 Alkaline Phosphatase 71 U/L (39-117) 07/23/21 08:43 Total Protein 5.4 g/dL (6.5-8.0) L 07/23/21 08:43 Albumin 3.3 g/dL (3.5-5.0) L 07/23/21 08:43 COVID-19 (JOSIAH) Negative (Negative) 07/23/21 08:43 COVID-19 Clin Com See Note 07/23/21 08:43 Blood Type AB Positive 07/23/21 08:43 Antibody Screen NEGATIVE 07/23/21 08:43 Crossmatch See Detail 07/23/21 08:43 - Imaging Radiologist's impression: ITS Impressions Head CT 07/23/21 09:07 IMPRESSION: No acute intracranial pathology. Generalized atrophy and small vessel disease. No significant change from previous study. Assessment and Plan Patient Active problem list reviewed?: Yes (1) Thrombocytopenia Status: Acute Assessment and plan: He needs a platelet transfusion and likelu 2 uniits of red cells. He will need a port. His survival depends upon the efficacy of a new chemotherapy regimen which is in progress. He remains stable. - Time Spent With Patient Time Spent with Patient (in minutes): 20
[2021-07-24 11:24] LABS: Glucose, Whole Blood 140 mg/dL (60-115)
--- NOTE | 2021-07-24 13:01 | MHC.CM.PN ---
Addendum entered by Ambar Milligan 07/24/21 13:04: ARIN REPORTS SHE IS THE PTS HCP, COPY NEEDED Original Note: CM MET WITH PTS , ARIN, WHO WAS AT BEDSIDE SHE REPORTS PT LIVES AT HOME WITH HER AND IS ACTIVE WITH EVELYN ANAYAA SHE REPORTS HE HAS A HOSPITAL BED AND NO OTHER DME PT IS VAX'D AND BOOSTED AGAINST COIVD-19 PCP IS [facility] IMM DELIVERED CURRENT DC PLAN IS HOME WITH RESUMPTION OF [facility] TO TRANSPORT
[2021-07-24 16:06] LABS: Glucose, Whole Blood 120 mg/dL (60-115)
[2021-07-24] MEDS: Mirtazapine 15 MG TABLET PO (20:13)
[2021-07-24] MEDS: Metoprolol Succinate ER 25 MG TAB.ER.24H PO (20:13)
[2021-07-24] MEDS: Tamsulosin HCL 0.4 MG CAPSULE PO (20:13)
[2021-07-24 20:26] LABS: Glucose, Whole Blood 128 mg/dL (60-115)
[2021-07-25] VITALS: BP 115/59; PULSE 89; RESP 18; TEMP 36.6; O2SAT 98
[2021-07-25 05:33] LABS: Hematocrit 25.1 % (42.0-52.0); Hemoglobin 8.6 g/dl (14.0-18.0); Mean Corpuscular HGB Conc 34.3 g/dl (31.0-36.0); Mean Corpuscular Hemoglobin 30.7 pg (27.0-33.0); Mean Corpuscular Volume 89.6 fL (80.0-98.0); Mean Platelet Volume 11.7 fL (9.4-12.4); NRBC Pct Auto 1.4 /100WBC (0.0-0.2); Red Cell Distribution Width 16.8 % (11.0-16.0); White Blood Count 1.5 X10*3/uL (4.8-10.8)
[2021-07-25 06:02] LABS: Platelet Count 20 X10*3/uL (160-400)
[2021-07-25 06:22] LABS: Anion Gap 16 (12-20); Blood Urea Nitrogen 18 mg/dL (9-16); Calcium 7.5 mg/dL (8.4-10.2); Carbon Dioxide 18 mmol/L (22-29); Chloride 107 mmol/L (96-108); Creatinine Clr Calc Pharmacy 77.1; Estimated Glomerular Filt Rate > 60; Glucose Fasting 115 mg/dL (60-99); Potassium 3.5 mmol/L (3.3-5.1); Sodium 137 mmol/L (135-145)
[2021-07-25 07:45] LABS: Glucose, Whole Blood 108 mg/dL (60-115)
[2021-07-25 08:00] VITALS: BP 147/65; PULSE 79; RESP 18; TEMP 36.1; O2SAT 97
--- NOTE | 2021-07-25 08:46 | P.DS_ITS ---
DS: Providers Provider Date of Service: 07/25/21 Date of admission: 07/23/21 10:38 Primary care physician: Unknown Physician Consults: 07/23/21 10:20 Consult to Hematology / Oncology Routine Consulting Provider: Cheko Ellis Reason for consultation: pancytopenia, MM DS: Diagnosis Discharge Diagnosis (1) Thrombocytopenia: Status: Acute (2) Thrombocytopenia: (3) Multiple myeloma: (4) Pancytopenia: DS: Summary Hospital Course Hospital Course: from intial hpi: Chief Complaint: thrombocytopenia 76M with pmh of MM, discharged from [facility] [place] 07/16/21, during which he had BM biopsy that showed 10% myeloblasts. had outpatient labs 07/20/21 which showed platelets of 7, called by oncologists to come for transfusion, but was unable to arrange so called EMS, EMS noted epistaxis with clot. patient has been progressively weak, but still able to ambulate, plan is to start new round of chemo next week. denies fevers, chills, sob, chest pain, rectal bleeding. did not complain of any significant epistaxis. hospital course: Patient was admitted for multiple myeloma complicated by pancytopenia with severe thrombocytopenia with epistaxis. He received a total 2 units of platelets and 2 units of PRBC. Platelets at discharge is 20, hemoglobin is 8.6. For his paroxysmal atrial fibrillation was continue Toprol and diltiazem, Coumadin has been stopped indefinitely due to thrombocytopenia. For his hypertension he is continued on Cardizem and Toprol, for his diabetes continue metformin, for his BPH he was continued on Flomax. Time Spent with Patient Time attestation: Total time spent providing and/or coordinating discharge services: Discharge coordination time: Greater than 30 minutes Quality: Safe Use of Opioids Does Pt have an Active Cancer Diagnosis on the Problem List?: Yes Opioid Measure Date for [facility] Report: 06/25/21 Opioid Measure Time for [facility] Report: 08:57 Quality: Stroke Does the patient have a stroke diagnosis?: No Physical Exam Vital Signs: Vital Signs: Last Vital Signs Temp 97 F 07/25/21 08:00 Pulse 79 07/25/21 08:00 Resp 18 07/25/21 08:00 BP 147/65 H 07/25/21 08:00 Pulse Ox 97 07/25/21 08:00 BMI result Body Mass Index 20.2 General: AO X 3, no acute distress, frail Resp:? CTA bilateral, no accessory muscles used CVS: S1,S2,RRR GI: soft, non tender, non distended Neuro:? motor grossly intact, alert Psych: appropriate affect, appropriate insight? DS: Data Data Completed and Pending Completed studies during hospitalization [Text1]: Procedures Drainage of Bone Marrow, Percutaneous Approach, Diagnostic (07/14/21) Extraction of Iliac Bone Marrow, Percutaneous Approach, Diagnostic (07/14/21) Transfusion of Nonautologous Platelets into Peripheral Vein, Percutaneous Approach (07/14/21) Transfusion of Nonautologous Red Blood Cells into Peripheral Vein, Percutaneous Approach (07/14/21) Labs on day of discharge: Laboratory Results - last 24 hr 07/23/21 07/24/21 07/24/21 08:43 11:07 15:49 WBC RBC Hgb Hct MCV MCH MCHC RDW Plt Count MPV Absolute Nucleated RBC Nucleated RBC % (auto) Sodium Potassium Chloride Carbon Dioxide Anion Gap BUN Creatinine Estim Creat Clear Calc Estimated GFR POC Glucose 140 H 120 H Fasting Glucose Calcium Blood Type AB Positive Antibody Screen NEGATIVE Crossmatch See Detail 07/24/21 07/25/21 07/25/21 20:10 04:30 04:30 WBC 1.5 L RBC 2.80 L Hgb 8.6 L Hct 25.1 L MCV 89.6 MCH 30.7 MCHC 34.3 RDW 16.8 H Plt Count 20 L* D MPV 11.7 Absolute Nucleated RBC 0.020 H Nucleated RBC % (auto) 1.4 H Sodium 137 Potassium 3.5 Chloride 107 Carbon Dioxide 18 L Anion Gap 16 BUN 18 H Creatinine 0.78 Estim Creat Clear Calc 77.1 Estimated GFR > 60 POC Glucose 128 H Fasting Glucose 115 H Calcium 7.5 L Blood Type Antibody Screen Crossmatch 07/25/21 07:15 WBC RBC Hgb Hct MCV MCH MCHC RDW Plt Count MPV Absolute Nucleated RBC Nucleated RBC % (auto) Sodium Potassium Chloride Carbon Dioxide Anion Gap BUN Creatinine Estim Creat Clear Calc Estimated GFR POC Glucose 108 Fasting Glucose Calcium Blood Type Antibody Screen Crossmatch Discharge Plan Discharge Patient Disposition: Home, Self-Care Referrals: Physician,Unknown J [Primary Care Provider] - 1 Week Discharge Medications: Continued brimonidine 0.2 % drops 1 drp ophthalmic-Left BID 0RF donepezil 10 mg tablet 10 mg PO DAILY 0RF metoprolol succinate 50 mg tablet extended release 24 hr 25 mg PO BEDTIME 0RF omeprazole 10 mg Capsule,Delayed Release(Dr/Ec) 10 mg PO DAILY 0RF oxycodone 5 mg Tablet 5 mg PO Q6H PRN (Reason: Pain, Moderate) 0RF zoledronic acid 4 mg/5 mL solution 4 mg IV QMONTH 0RF primidone 50 mg tablet 100 mg PO DAILY 0RF tamsulosin 0.4 mg capsule 0.4 mg PO BEDTIME 0RF metformin 500 mg tablet 500 mg PO BID 0RF latanoprost 0.005 % drops 1 drp ophthalmic-Right BEDTIME 0RF megestrol 400 mg/10 mL (40 mg/mL) suspension 400 mg PO BID 0RF mirtazapine 15 mg tablet 15 mg PO BEDTIME 0RF Diet: advance to usual diet Activity on Discharge: As tolerated Stand Alone Forms: Patient Portal Discharge page Care Plan Goals: recovery Health Concerns: MM Plan of Treatment: follow up with hemoatology Assessment: see above
[2021-07-25] MEDS: Donepezil HCl 10 MG TABLET PO (09:33)
[2021-07-25] MEDS: 0.9 % Sodium Chloride Flush 3 ML SYRINGE IVFLUSH (09:33)
[2021-07-25] MEDS: metFORMIN HCl 500 MG TABLET PO (09:33)
[2021-07-25] MEDS: Primidone 50 MG TABLET 100 MG PO (09:33)
[2021-07-25] MEDS: Megestrol Acetate 400 MG/10 ML ORAL.SUSP PO (09:33)
--- NOTE | 2021-07-25 10:58 | MHC.CM.PN ---
MIKE MET WITH PTS , ARIN, AT BEDSIDE SHE IS AWARE PT WILL BE DISCHARGED HOME TODAY WITH RESUMPTION OF HIS [facility] SERVICES SHE REQUESTED AMBULANCE TRANSPORT HOWEVER CM DID EXPLAIN THIS WOULD LIKELY NOT BE COVERED BY INSURANCE SHE IS AGREEABLE TO CHAIR [facility]AN TRANSPORT, COST WAS EXPLAINED. CHAIR VAN REQUESTED FOR 1300 HOURS [facility] INFORMED OF DC VIA [employer]
[2021-07-25 11:22] VITALS: BP 138/63; PULSE 80; RESP 18; TEMP 36.3; O2SAT 100
[2021-07-25 11:43] LABS: Glucose, Whole Blood 125 mg/dL (60-115)
== END 2021-07-25 14:00 | disposition home or self-care (01) ==
LOC: HO.ED 08:37 → HO.EDOVER 10:43 → HO.S3 11:05
PROVIDERS: Admitting Provider Internal Medicine; Emergency Provider Emergency Medicine; PCP Internal Medicine Medical Oncology; Visit Provider Internal Medicine
DX: D69.6 Thrombocytopenia, unspecified (principal); D61.818 Other pancytopenia; D70.9 Neutropenia, unspecified; C90.00 Multiple myeloma not having achieved remission; R04.2 Hemoptysis; R04.0 Epistaxis; D69.59 Other secondary thrombocytopenia; R42 Dizziness and giddiness; R06.02 Shortness of breath; R00.0 Tachycardia, unspecified; R35.1 Nocturia; I49.3 Ventricular premature depolarization; M62.81 Muscle weakness (generalized); R58 Hemorrhage, not elsewhere classified; R41.3 Other amnesia; E11.9 Type 2 diabetes mellitus without complications; I10 Essential (primary) hypertension; I48.0 Paroxysmal atrial fibrillation; N40.1 Benign prostatic hyperplasia with lower urinary tract symptoms; R33.8 Other retention of urine; Z87.891 Personal history of nicotine dependence; Z67.30 Type AB blood, Rh positive; Z84.1 Family history of disorders of kidney and ureter; Z79.84 Long term (current) use of oral hypoglycemic drugs; Z79.891 Long term (current) use of opiate analgesic; Z79.899 Other long term (current) drug therapy
CPT/HCPCS: 36415; 36430; 70450; 80048; 80076; 82947; 83735; 85007; 85025; 85027; 85610; 85730; 86850; 86900; 86901; 86923; 87635; 93005; 99218; 99283; 99291; P9016; P9035; P9073